=== PATIENT | male | born 1930 | race Caucasian/White ===

== ENCOUNTER 2017-12-07 13:17 | Inpatient (IN) | payer MEDICARE ==
[2017-12-07 13:53] LABS: #Eosinphils 0.1 thou/uL (0.0-0.7); #Lymphocytes 0.8 thou/uL (1.20-3.40); #Monocytes 0.9 thou/uL (0.11-0.59); #Neutrophils 8.2 thou/uL (1.40-6.50); %Basophils 0.2 % (0.0-1.0); %Eosinophils 0.6 % (0.0-10.0); %Lymphocytes 8.1 % (21.0-51.0); %Monocytes 8.7 % (0.0-10.0); %Neutrophils 82.5 % (42.0-75.0); Hemoglobin 14.9 g/dL (14.0-18.0); Mean Corpuscular HGB CONC 33.6 g/dL (32.0-36.0); Mean Corpuscular Hemoglobin 32.4 pg (27.0-31.0); Mean Corpuscular Volume 96.6 fl (80.0-94.0); Mean Platelet Volume 6.5 fL (7.4-10.4); Platelet Count 219 thou/uL (130-400); RBC Distribution Width 11.5 % (11.5-14.5); Red Blood Cell (RBC) Count 4.61 mill/uL (4.70-6.10)
[2017-12-07 14:11] LABS: ALT (SGPT) 13 U/L (8-55); AST (SGOT) 17 U/L (5-34); Albumin 3.9 g/dL (3.4-4.8); Alkaline Phosphatase 80 U/L (40-150); Anion Gap 16 mmol/L (10-20); BUN (Urea Nitrogen) 15 mg/dL (8.4-25.7); Bilirubin, Total 0.8 mg/dL (0.2-1.2); Calc. Creatinine Clearance 0 mL/min (70-130); Calcium 10.1 mg/dL (7.8-10.44); Carbon Dioxide 22 mmol/L (23-31); Chloride 103 mmol/L (98-107); Estimated GFR-MDRD 49; Globulin 3.3 g/dL (2.4-3.5); Glucose 116 mg/dL (83-110); Protein, Total 7.2 g/dL (5.8-8.1); Sodium 137 mmol/L (136-145)
--- NOTE | 2017-12-07 14:12 | RAD ---
RIGHT HIP TWO VIEWS: History: Hip pain after fall. Comparison: 2014 FINDINGS: There is an impacted mid femoral neck fracture with valgus angulation. Severe degenerative change rig ht hip. IMPRESSION: Impacted mid femoral neck fracture with mild valgus angulation. POS: [facility]
--- NOTE | 2017-12-07 14:14 | RAD ---
CHEST ONE VIEW: History: Fall. Comparison: Chest two views, 2013. FINDINGS: Calcified granulomas are similar. There is linear scarring left lung base. No focal airspace consolid ation, pneumothorax or effusion. IMPRESSION: No acute intrathoracic abnormality. POS: [facility]
--- NOTE | 2017-12-07 14:14 | RAD ---
AP PELVIS 1 VIEW: Date: 12/07/17 HISTORY: Fall. Pelvic injury. FINDINGS: Sacral ala and pelvic rings are intact. Left hip prosthesis is visualized. There are degenerative quincy nges of the right hip and lower lumbar spine. Calcifications overlie the arterial structures. No disp laced fractures are visible. IMPRESSION: 1. No acute osseous abnormalities are demonstrated. 2. Osteoarthritis. Left hip prosthesis. 3. Atherosclerosis. POS: [facility]
--- NOTE | 2017-12-07 14:57 | CT ---
CT PELVIS NONCONTRAST: Date: 12/07/17 HISTORY: Fall. Right hip injury. FINDINGS: Oblique fracture through the neck of the right femur is present with minimal impaction and valgus ang ulation. Degenerative changes of the right hip are also present. Left hip prosthesis is visible. Ther e is osteophytosis and partial ankylosis of each sacroiliac joint. IMPRESSION: Right femoral neck fracture. POS: [facility]
[2017-12-07] MEDS ORDERED: Sodium Chloride 0.9% 1,000 ML IV SCH ×2 (16:14→16:32)
[2017-12-07] MEDS ORDERED: Ondansetron HCl/PF 4 MG/2 ML Vial IVP PRN ×2 (16:14→16:32)
[2017-12-07] MEDS ORDERED: Ondansetron ODT 4 MG TAB SL PRN (16:14)
[2017-12-07] MEDS ORDERED: Morphine 4 MG/ML Carpuject SLOW IVP PRN (16:15)
[2017-12-07 16:30] VITALS: BMI 29.9
[2017-12-07] MEDS ORDERED: Acetaminophen 500 MG TAB PO PRN (16:32)
[2017-12-07] MEDS ORDERED: Dextrose 50% Abboject 50 ML SYRINGE SLOW IVP PRN (16:32)
[2017-12-07] MEDS ORDERED: hydrALAZINE 20 MG/ML VIAL SLOW IVP PRN (16:32)
[2017-12-07] MEDS ORDERED: Ondansetron ODT 4 MG TAB PO PRN (16:32)
[2017-12-07] MEDS ORDERED: Dextrose 5% in Water 1,000 ML IV PRN (16:32)
[2017-12-07] MEDS ORDERED: Morphine 4 MG/ML Carpuject IVP PRN (16:32)
[2017-12-07] MEDS ORDERED: Morphine 2 MG/ML SYRINGE SLOW IVP PRN (16:55)
--- NOTE | 2017-12-07 19:25 | HP ---
DATE OF SERVICE: 12/07/2017 ATTENDING PHYSICIAN: Dr. Edison Kate. CONSULTING PHYSICIAN: Dr. Levon Velasco. CHIEF COMPLAINT: Evaluation for fall on the right hip. HISTORY OF PRESENT ILLNESS: The patient is an 87-year-old male who slipped and fell on a patch of ice while walking in his driveway the morning of 12/06/2017. He reports falling on his right hip. He denies hitting his head, loss of consciousness or injury to any other body part. He denies a history of falls. He denies dizziness or lightheadedness. He does report prior episodes of numbness and tingling in his extremities, but believes this was a reaction to a medicine he took and says this has resolved. He reports taking two tablets of an unknown pain reliever last night, which he says he got from an old prescription for back pain. He was able to sleep comfortably in his recliner last night, but was unable to bear weight when he awoke this morning. Currently reports his pain is 0/10, but says it is worse as much as 5/10 with movement. REVIEW OF SYSTEMS: Ten point review of systems is negative except as mentioned in the HPI. PAST MEDICAL HISTORY: The patient reports a history of BPH as well as numerous musculoskeletal problems as mentioned in the surgical history. PAST SURGICAL HISTORY: The patient reports a history of right shoulder replacement surgery, left hip replacement surgery, back surgery, inguinal hernia repair surgery, as well as surgery for BPH. SOCIAL HISTORY: The patient reports drinking about 1 beer every 3 months. The patient denies drug use. The patient denies smoking. The patient does report a remote history of chewing tobacco. 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 CURRENT MEDICATIONS: The patient takes 81 mg aspirin p.o. daily. The patient also takes B12 supplements. The patient takes PreserVision AREDS 2 vitamins for his eyes. PHYSICAL EXAMINATION: VITAL SIGNS: BP 151/86, pulse 79, respirations 22 and nonlabored, temperature 99.8, O2 sat 93% on room air. GENERAL: Elderly male lying comfortably in bed, alert and conversational with staff. HEAD: Atraumatic, normocephalic. EYES: Extraocular movements intact. Pupils equal, round, and reactive to light and accommodation. ENT: External ear exam unremarkable. No blood or exudate in the external canals. Hearing grossly impaired bilaterally. NECK: Normal. RESPIRATORY: Lungs clear to auscultation bilaterally. CARDIOVASCULAR: Regular rate and rhythm. Normal S1 and S2. ABDOMEN: Soft, nontender, nondistended. Bowel sounds normal. No organomegaly. MUSCULOSKELETAL: Moves hands and feet easily. Communication Manager strength 5/5. Great toe strength 5/5. Pedal pulses 2+ bilaterally. Difficulty with active range of motion in right leg. Area around right hip and greater trochanter free of ecchymosis and not tender to palpation. SKIN: Warm and dry with normal color. NEUROLOGIC: Alert and oriented x4. Cranial nerves II-XII intact. No focal neurologic deficits. RADIOLOGIC FINDINGS: The pelvis CT as well as plain films of the hip and pelvis show right femoral neck fracture. Chest x-ray shows no acute intrathoracic abnormality. ASSESSMENT AND PLAN: 1. Status post fall. 2. Right femoral neck fracture. PLAN: He will be admitted to the surgical floor. Because his last meal was this morning, the plan will be for surgical fixation of his right hip tomorrow sometime. In the meantime, we will make him n.p.o. after midnight and optimize his pain control. The patient was seen and discussed with Dr. Kate, who agrees with this assessment and plan. [facility]
[2017-12-07] MEDS: Famotidine 20 MG TAB PO SCH (20:41)
--- NOTE | 2017-12-07 21:36 | CON ---
DATE OF CONSULTATION: 12/07/2017 CHIEF COMPLAINT: Right hip pain. HISTORY OF PRESENT ILLNESS: Mr. Acuña is an 87-year-old male who slipped on ice today. He fell matt d on his right hip. The patient was able to ambulate initially; however, he had progressive worsenin g hip pain. Today, he was unable to arise out of a chair. He finally called EMS and was taken to [facility] emergency department. X-rays were obtained, which demonstrated a femoral neck fracture. The patie nt is currently resting comfortably. He has been admitted to the hospital by the Trauma Service. He denies other injuries. He denies other fractures. He has had a left total hip arthroplasty in the past for arthritis. He had no hip pain prior to his injury and no significant arthritis type pain re cently. PAST MEDICAL HISTORY: Benign prostatic hypertrophy. PAST SURGICAL HISTORY: Left total hip arthroplasty, previous right shoulder arthroplasty, previous b ilateral hernia repair, and lumbar surgery. PSYCHIATRIC HISTORY: Negative. SOCIAL HISTORY: The patient occasionally drinks alcohol. Denies tobacco or drug use. ALLERGIES: No known drug allergies. IMAGES: X-rays and CT scan of the right hip are reviewed. These demonstrate a nondisplaced right fr acture of the femoral neck. There is no significant loss of alignment or impaction. PHYSICAL EXAMINATION: VITAL SIGNS: Temperature is 99.5, pulse is 93, respiratory rate 18, oxygen saturation 93%, blood pre ssure 136/90. GENERAL: The patient is alert, sitting with head of bed elevated, in no apparent distress. HEENT: Normocephalic, atraumatic. RESPIRATORY: Breathing comfortably. ABDOMEN: Soft, nontender, nondistended. MUSCULOSKELETAL: The patient's right hip has pain with logrolling. He cannot actively elevate the l eg. He does have an intact neurovascular status distally with a palpable pulse. He is able flex and extend the foot and ankle. No significant ecchymosis, no laceration. IMPRESSION: Elderly male with a nondisplaced femoral neck fracture of the right hip. PLAN: At this point, I think the patient would benefit from percutaneous screw fixation to stabilize this fracture and allow healing. The goal of surgery is to prevent displacement. He wants to proce ed with this. We discussed alternatives, which would include arthroplasty of the hip; however, he di d not have any preinjury, hip pain, despite having arthritic hip. We will try screw fixation. He is aware of risk of avascular necrosis, hardware failure, nonunion, and others. He should be n.p.o. at midnight. He will have adequate pain control and preoperative medical optimization. He will have p reoperative antibiotics.
[2017-12-07] MEDS ORDERED: Melatonin 3 MG TAB PO PRN (23:31)
[2017-12-08] MEDS ORDERED: CEFAZOLIN/Water 2 GM/20 ML SYRINGE SLOW IVP SCH (00:01)
--- NOTE | 2017-12-08 00:35 | PRG ---
DATE OF SERVICE: 12/07/2017 SUBJECTIVE: This is an 87-year-old male admitted earlier today status post mechanical fall with hip fracture. The patient's pain is well controlled. He localizes no complaint. He did, however, ask f or something to help him sleep. OBJECTIVE: VITAL SIGNS: Reviewed and are stable. The patient does appear to have a low-grade temperature. GENERAL: The patient is resting in bed, in no acute distress. Breathing is nonlabored. ASSESSMENT: As documented in history and physical earlier today. Continue care as ordered. Given t he patient's age and time in the evening, he may have 3 mg of melatonin at bedtime p.r.n. for insomni a. He will need aggressive postop incentive spirometry and pulmonary toileting. Continue to monitor .
[2017-12-08] MEDS: Sodium Chloride 0.9% 1,000 ML IV SCH ×2 (01:34→13:49)
[2017-12-08 05:30] LABS: #Eosinphils 0.2 thou/uL (0.0-0.7); #Lymphocytes 1.2 thou/uL (1.20-3.40); #Neutrophils 6.2 thou/uL (1.40-6.50); %Basophils 0.3 % (0.0-1.0); %Lymphocytes 14.3 % (21.0-51.0); %Monocytes 11.3 % (0.0-10.0); %Neutrophils 72.2 % (42.0-75.0); Hemoglobin 13.4 g/dL (14.0-18.0); Mean Corpuscular HGB CONC 32.6 g/dL (32.0-36.0); Mean Corpuscular Hemoglobin 31.5 pg (27.0-31.0); Mean Corpuscular Volume 96.7 fl (80.0-94.0); Mean Platelet Volume 6.6 fL (7.4-10.4); Platelet Count 186 thou/uL (130-400); RBC Distribution Width 11.4 % (11.5-14.5); Red Blood Cell (RBC) Count 4.26 mill/uL (4.70-6.10); White Blood Cell (WBC) Count 8.5 thou/uL (4.8-10.8)
[2017-12-08 05:32] LABS: INR-International Normal Ratio 1.2; PTT 37.7 SEC (22.9-36.1); Prothrombin Time 15.4 SEC (12.0-14.7)
[2017-12-08 05:49] LABS: Anion Gap 11 mmol/L (10-20); BUN (Urea Nitrogen) 13 mg/dL (8.4-25.7); Calc. Creatinine Clearance 58 mL/min (70-130); Calcium 8.7 mg/dL (7.8-10.44); Carbon Dioxide 24 mmol/L (23-31); Chloride 104 mmol/L (98-107); Estimated GFR-MDRD 55; Glucose 101 mg/dL (83-110); Magnesium 2.1 mg/dL (1.6-2.6); Phosphorus 2.7 mg/dL (2.3-4.7); Potassium 3.9 mmol/L (3.5-5.1); Sodium 135 mmol/L (136-145)
[2017-12-08] MEDS: Famotidine 20 MG TAB PO SCH ×2 (07:21→20:51)
[2017-12-08] MEDS ORDERED: Ondansetron HCl/PF 4 MG/2 ML Vial ONE (10:42)
[2017-12-08] MEDS ORDERED: Propofol 200 MG/20 ML VIAL ONE (10:42)
[2017-12-08] MEDS ORDERED: Lidocaine 1% PF 5 ML VIAL ONE (10:42)
[2017-12-08] MEDS ORDERED: Fentanyl 100 MCG/2 ML VIAL ONE ×2 (13:49→15:57)
[2017-12-08] MEDS ORDERED: CEFAZOLIN/Water 2 GM/20 ML SYRINGE ONE (14:21)
[2017-12-08] MEDS ORDERED: Morphine Sulfate 2 MG/ML SYRINGE SLOW IVP PRN (15:23)
[2017-12-08] MEDS ORDERED: Promethazine HCl 25 MG/ML VIAL SLOW IVP PRN (15:23)
[2017-12-08] MEDS ORDERED: traMADol HCl 50 MG TAB PO PRN ×2 (15:30)
[2017-12-08] MEDS ORDERED: Ondansetron HCl/PF 4 MG/2 ML Vial IVP PRN (15:30)
[2017-12-08] MEDS ORDERED: Fentanyl 100 MCG/2 ML VIAL SLOW IVP PRN (15:30)
[2017-12-08] MEDS ORDERED: Bisacodyl 10 MG SUPP PR PRN (15:30)
[2017-12-08] MEDS ORDERED: Ondansetron ODT 4 MG TAB PO PRN (15:30)
[2017-12-08] MEDS ORDERED: Acetaminophen 325 MG TAB PO PRN (15:30)
[2017-12-08] MEDS ORDERED: Cepastat Lozenges 1 LOZ PO PRN (15:30)
[2017-12-08] MEDS ORDERED: Fleet Enema 133 ML BOT PR PRN (15:30)
--- NOTE | 2017-12-08 17:59 | PRG ---
DATE OF SERVICE: 12/08/2017 SUBJECTIVE: The patient is hospital day #2 status post ground level fall which he sustained a right hip fracture. The patient has been n.p.o. overnight and is currently awaiting surgical intervention by Orthopedics. The patient has no complaints, states that his pain is controlled. OBJECTIVE: VITAL SIGNS: Temperature is 97.9, heart rate 60, blood pressure 147/78, respirations 18, oxygen satu ration is 93% on room air. GENERAL: The patient is resting comfortably in bed. He is alert and oriented x3. Hortencia coma scal e is 15. HEENT: Unremarkable. LUNGS: Chest clear to auscultation with good inspiratory and expiratory effort. HEART: Regular rate and rhythm. ABDOMEN: Soft, flat, nontender with active bowel sounds. EXTREMITIES: Neurovascularly intact x4. LABORATORY DATA: White blood cell count 8.5, hemoglobin 13.4, hematocrit 41.2, platelets 186. Sodiu m 135, potassium 3.9, chloride 104, CO2 24, BUN 13, creatinine 1.24, glucose 101. Magnesium 2.1, jermain sphorus 2.7. There are no radiographs to review this morning. ASSESSMENT AND PLAN: 1. Status post ground level fall. 2. Right femoral neck fracture. PLAN: Will be to continue supportive care. Await surgical intervention by Orthopedics. Postoperati vely, we will advance his diet and begin physical and occupational therapy and discussed placement at that time. The evaluation examination was done this morning with Dr. Kate during rounds.
--- NOTE | 2017-12-08 18:19 | OP ---
DATE OF PROCEDURE: 12/08/2017. OPERATION: Right femoral neck fracture, percutaneous screw fixation. PREOPERATIVE DIAGNOSIS: Nondisplaced right femoral neck fracture. POSTOPERATIVE DIAGNOSIS: Nondisplaced right femoral neck fracture. COMPLICATIONS: None. ESTIMATED BLOOD LOSS: Minimal. SURGEON: Rusty Velasco M.D. ANESTHESIA: General. IMPLANTS: Synthes 7.3 mm screws x3. INDICATIONS: Mr. Acuña is an 87-year-old male who fell on ice. He sustained a fracture of a right femoral neck. He was indicated for percutaneous screw fixation to restore stability and promote heal ing. Goal of surgery is early mobilization. DESCRIPTION OF PROCEDURE: Mr. Acuña was identified in the preoperative holding area. His correct e xtremity was marked. He was carried to the operating room. He was positioned supine. General anest hesia was induced. A multidisciplinary timeout was performed. The right lower extremity was prepped and draped in sterile fashion. We began the procedure with a small incision laterally. We then inserted three guidewires for cannul ated screws in an inverted triangle position. These were placed carefully with x-ray. At this point , we went ahead and overdrilled these screws. We measured our appropriate length. We then placed 3 cannulated 7.3 mm screws in an inverted triangle pattern. Again, x-rays were taken, confirming hardw are placement and position. There were no complications. At this point, the patient's wound was irr igated and closed with 2-0 Vicryl suture followed by last. A sterile dressing was applied. He wa s taken to the recovery room in good condition without complication.
--- NOTE | 2017-12-08 18:47 | RAD ---
TWO INTRAOPERATIVE FLUOROSCOPIC IMAGES OF THE RIGHT HIP 12/08/17 HISTORY: Trochanteric nail. COMPARISON: 12/07/17. FINDINGS: Three long screws now transfix the previously noted right femoral neck fracture. No hardware complica tion is seen. IMPRESSION: Internal fixation of right femoral neck fracture. POS: [facility]
[2017-12-08] MEDS: Aspirin 325 MG TAB PO SCH (20:50)
[2017-12-08] MEDS: Senokot S 8.6-50 MG TAB PO SCH (20:55)
[2017-12-08] MEDS: Ferrous Gluconate 324 MG TAB PO SCH (20:55)
[2017-12-08] MEDS: CEFAZOLIN/Water 2 GM/20 ML SYRINGE SLOW IVP SCH (20:59)
--- NOTE | 2017-12-08 21:01 | PRG ---
DATE OF SERVICE: 12/08/2017. SUBJECTIVE: This is an 87-year-old male status post ground-level fall and right hip fracture repair. Postop day 0. Patient is returned from the PACU recently. He is hemodynamically stable. He vocal ized no complaints this evening. OBJECTIVE: VITAL SIGNS: Reviewed and stable. GENERAL: The patient is a fever. Resting in bed is in no acute distress. Breathing is nonlabored. ASSESSMENT AND PLAN: As documented in the daily progress note. Continue care as ordered. Continue to monitor.
[2017-12-09] MEDS: Acetaminophen 500 MG TAB PO SCH ×4 (00:22→17:34)
[2017-12-09 05:30] LABS: Hemoglobin 13.3 g/dL (14.0-18.0); Mean Corpuscular HGB CONC 35.3 g/dL (32.0-36.0); Mean Corpuscular Hemoglobin 34.3 pg (27.0-31.0); Mean Corpuscular Volume 97.2 fl (80.0-94.0); Mean Platelet Volume 6.5 fL (7.4-10.4); Platelet Count 163 thou/uL (130-400); RBC Distribution Width 11.2 % (11.5-14.5); Red Blood Cell (RBC) Count 3.87 mill/uL (4.70-6.10)
[2017-12-09] MEDS: CEFAZOLIN/Water 2 GM/20 ML SYRINGE SLOW IVP SCH (06:39)
[2017-12-09] MEDS: Sodium Chloride 0.9% 1,000 ML IV SCH (06:41)
[2017-12-09] MEDS: Ferrous Gluconate 324 MG TAB PO SCH ×2 (09:28→20:39)
[2017-12-09] MEDS: Famotidine 20 MG TAB PO SCH ×2 (09:28→20:39)
[2017-12-09] MEDS: Aspirin 325 MG TAB PO SCH ×2 (09:28→20:39)
[2017-12-09] MEDS: Senokot S 8.6-50 MG TAB PO SCH ×2 (09:29→20:39)
[2017-12-09] MEDS: Multivitamin W/ Minerals 1 TAB PO SCH (09:29)
[2017-12-09] MEDS: Milk Of Magnesia 30 ML UDCUP PO PRN ×2 (11:55→17:34)
--- NOTE | 2017-12-09 16:14 | PRG ---
DATE OF SERVICE: 12/09/2017 SUBJECTIVE: The patient is hospital day #3, postop day #1 status post ground level fall, which he olivares stained a right femoral neck fracture. Yesterday, the patient underwent percutaneous screw fixation of his right femoral neck fracture. The patient tolerated this procedure well. This morning, he sta nilda that his pain is controlled. He does feel hungry. He has not worked with physical and occupatio nal therapy yet. Otherwise, he has no complaints. PHYSICAL EXAMINATION: VITAL SIGNS: Temperature is 98.0, heart rate 55, blood pressure 112/60, respirations 16, oxygen satu ration 96% on room air. HEENT: Unremarkable. LUNGS: Clear to auscultation with good inspiratory and expiratory effort. In fact, the patient was able to get to nearly 3000 on his incentive spirometry. HEART: Regular rate and rhythm. ABDOMEN: Soft, flat, nontender with active bowel sounds. EXTREMITIES: Neurovascularly intact. Postop dressings are clean, dry, and intact. LABORATORY DATA AND IMAGING: White blood cell count 8.0, hemoglobin 13.3, hematocrit 37.6, platelets 163. Sodium 135, potassium 3.9, chloride 104, CO2 24, BUN 13, creatinine 1.24, glucose 101. Magnes ium 2.1, phosphorus 2.7. There are no radiographs reviewed this morning. ASSESSMENT AND PLAN: 1. Status post ground level fall. 2. Status post percutaneous screw fixation of right hip fracture. Plan will be to continue pain control, physical and occupational therapy and await placement decision . gas manager will discuss this with the family today. This evaluation examination was done with Valerie Kate during rounds this morning.
--- NOTE | 2017-12-09 20:38 | PRG ---
DATE OF SERVICE: 12/09/2017 SUBJECTIVE: This is an 87-year-old gentleman postop day #1 status post hip fracture repair. The pat ient is working with physical therapy today. He states his pain is controlled. On Pulmonary evaluat ion, the patient vocalized no complaint. OBJECTIVE: VITAL SIGNS: Reviewed and stable. The patient is afebrile. GENERAL: Resting in bed, in no acute distress. PULMONARY: Breathing is nonlabored. ASSESSMENT AND PLAN: As documented in daily progress note. Continue care as ordered. Continue to m onitor. Await placement.
[2017-12-10] MEDS: Acetaminophen 500 MG TAB PO SCH ×4 (00:49→17:54)
[2017-12-10 05:14] LABS: Hemoglobin 13.1 g/dL (14.0-18.0); Mean Corpuscular HGB CONC 32.8 g/dL (32.0-36.0); Mean Corpuscular Hemoglobin 31.8 pg (27.0-31.0); Mean Corpuscular Volume 96.8 fl (80.0-94.0); Mean Platelet Volume 6.7 fL (7.4-10.4); Platelet Count 183 thou/uL (130-400); RBC Distribution Width 11.4 % (11.5-14.5); Red Blood Cell (RBC) Count 4.12 mill/uL (4.70-6.10); White Blood Cell (WBC) Count 6.5 thou/uL (4.8-10.8)
[2017-12-10 05:37] LABS: Anion Gap 13 mmol/L (10-20); BUN (Urea Nitrogen) 15 mg/dL (8.4-25.7); Calc. Creatinine Clearance 60 mL/min (70-130); Calcium 8.8 mg/dL (7.8-10.44); Carbon Dioxide 25 mmol/L (23-31); Chloride 103 mmol/L (98-107); Estimated GFR-MDRD 57; Glucose 95 mg/dL (83-110); Magnesium 2.3 mg/dL (1.6-2.6); Phosphorus 2.7 mg/dL (2.3-4.7); Potassium 3.6 mmol/L (3.5-5.1); Sodium 137 mmol/L (136-145)
[2017-12-10] MEDS ORDERED: Potassium Chloride 40 MEQ in Sodium Chloride 0.9% 500 ML IVPB SCH (07:30)
[2017-12-10] MEDS: Aspirin 325 MG TAB PO SCH ×2 (09:28→20:30)
[2017-12-10] MEDS: Ferrous Gluconate 324 MG TAB PO SCH ×2 (09:29→20:30)
[2017-12-10] MEDS: Senokot S 8.6-50 MG TAB PO SCH ×2 (09:29→20:30)
[2017-12-10] MEDS: Famotidine 20 MG TAB PO SCH ×2 (09:29→20:30)
[2017-12-10] MEDS: Multivitamin W/ Minerals 1 TAB PO SCH (09:29)
--- NOTE | 2017-12-10 12:40 | PRG ---
DATE OF SERVICE: 12/10/2017 SUBJECTIVE: The patient is hospital day #4. Postop day #2 status post ground level fall which he olivares stained a right femoral neck fracture. The patient has undergone percutaneous screw fixation of this fracture. He tolerated this well, has been working with physical and occupational therapy and has a ctually been doing exceedingly well with physical therapy as far as ambulation and transfers. The katherine malik's pain is controlled, he is tolerating a diet and his bowel function has returned. PHYSICAL EXAMINATION: VITAL SIGNS: Temperature is 98.6, heart rate 63, blood pressure 147/69, respirations 19, oxygen satu ration 95% on room air. GENERAL: The patient is resting comfortably in a chair by his bed. He is alert and oriented x3. Gl asgow coma scale is 15. HEENT: Unremarkable. LUNGS: Clear to auscultation bilaterally with good inspiratory and expiratory effort. HEART: Regular rate and rhythm. ABDOMEN: Soft, flat, nontender with active bowel sounds. EXTREMITIES: Neurovascularly intact x4. Postop dressing is clean, dry, and intact. LABORATORY DATA: White blood cell count 6.5, hemoglobin 13.1, hematocrit 39.9, platelets 183. Sodiu m 137, potassium 3.6, chloride 103, CO2 25, BUN 15, creatinine 1.20, glucose 95. Magnesium 2.3, phos phorus 2.7. There are no radiographs to review this morning. ASSESSMENT AND PLAN: 1. Status post ground level fall. 2. Status post percutaneous screw fixation of right hip fracture. PLAN: The plan will be to continue physical and occupational therapy. The patient is okay to transf er to a swing bed facility or with the amount of progress he has made, home with home health and home PT. This is definitely a consideration, I will discuss this with the behavioral health case manager and the patient and make decisions, but the patient is okay for discharge from our facility. This case was discussed with Dr. Kate this morning.
--- NOTE | 2017-12-10 20:29 | PRG ---
DATE OF SERVICE: 12/10/2017 SUBJECTIVE: This is an 87-year-old male, hospital day #4, postoperative day #2, status post ground l evel fall and hip fracture repair. The patient has done well with physical therapy. His pain is con trolled via p.o. analgesics. Upon my evaluation, the patient vocalized no complaint. OBJECTIVE: VITAL SIGNS: Reviewed and stable. GENERAL: The patient is resting in bed, in no acute distress. RESPIRATORY: Breathing is nonlabored. ASSESSMENT AND PLAN: As documented in daily progress note. Continue care as ordered. Continue to m onitor.
[2017-12-11] MEDS: Acetaminophen 500 MG TAB PO SCH ×2 (01:11→06:38)
[2017-12-11 04:45] LABS: Hemoglobin 12.7 g/dL (14.0-18.0); Mean Corpuscular HGB CONC 33.2 g/dL (32.0-36.0); Mean Corpuscular Hemoglobin 32.2 pg (27.0-31.0); Mean Corpuscular Volume 97.1 fl (80.0-94.0); Mean Platelet Volume 6.4 fL (7.4-10.4); Platelet Count 188 thou/uL (130-400); RBC Distribution Width 11.4 % (11.5-14.5); Red Blood Cell (RBC) Count 3.93 mill/uL (4.70-6.10); White Blood Cell (WBC) Count 5.3 thou/uL (4.8-10.8)
[2017-12-11 04:58] LABS: Anion Gap 13 mmol/L (10-20); BUN (Urea Nitrogen) 13 mg/dL (8.4-25.7); Calc. Creatinine Clearance 60 mL/min (70-130); Calcium 8.8 mg/dL (7.8-10.44); Carbon Dioxide 25 mmol/L (23-31); Chloride 106 mmol/L (98-107); Estimated GFR-MDRD 58; Glucose 101 mg/dL (83-110); Magnesium 2.4 mg/dL (1.6-2.6); Phosphorus 3.1 mg/dL (2.3-4.7); Sodium 140 mmol/L (136-145)
[2017-12-11 08:05] VITALS: BP 163/63; TEMP 97.7
[2017-12-11] MEDS: Aspirin 325 MG TAB PO SCH (08:29)
[2017-12-11] MEDS: Senokot S 8.6-50 MG TAB PO SCH (08:30)
[2017-12-11] MEDS: Multivitamin W/ Minerals 1 TAB PO SCH (08:30)
[2017-12-11] MEDS: Famotidine 20 MG TAB PO SCH (08:31)
[2017-12-11] MEDS: Ferrous Gluconate 324 MG TAB PO SCH (08:31)
[2017-12-11] MEDS ORDERED: Polyethylene Glycol 3350 17 GM Packet PO SCH (09:00)
--- NOTE | 2017-12-11 22:14 | DIS ---
DATE OF ADMISSION: 12/07/2017 DATE OF DISCHARGE: 12/11/2017 ADMISSION DIAGNOSES: 1. Status post ground level fall. 2. Right femoral neck fracture. CONSULTATIONS: Orthopedics, Dr. Velasco. PROCEDURES: Percutaneous screw fixation of right femoral neck fracture. SUMMARY: The patient is an 87-year-old man who reportedly fell on the ice the day prior to coming to the emergency department. The patient was evaluated, examined and noted to have the above injuries. The following day, the patient will undergo his surgical procedure which he tolerated well. The pa tient would work with physical and occupational therapy and would actually exceed our expectations an d would be able to be discharged home with home PT. The patient would not require inpatient rehabili tation. He had progressed so rapidly. The patient will follow up with Dr. Velasco in 2-3 weeks or sooner as needed. The patient may followup with the Trauma Clinic as needed. At the time of discha rge, the patient was tolerating a diet. His pain was well controlled and his bowel function had retu rned. The patient was ambulating with a walker without assistance.
== END 2017-12-11 11:38 | disposition home or self-care (01) | DRG 482 ==
LOC: ERS 13:17 → SURG A 14:55
PROVIDERS: ADMIT Surgery; ATTEND Surgery
PROC: 0QH634Z Insertion of Internal Fixation Device into Right Upper Femur, Percutaneous Approach (ICD-10-PCS; principal; 2017-12-08)
DX: S72.001A Fracture of unspecified part of neck of right femur, initial encounter for closed fracture (principal); G47.00 Insomnia, unspecified; W00.0XXA Fall on same level due to ice and snow, initial encounter
CPT/HCPCS: 36415; 71045; 72170; 72192; 76000; 80048; 80053; 83735; 84100; 85025; 85027; 85610; 85730; C1713; C1769; G8978-GP-CK; G8979-GP-CJ; G8987-GO-CK; G8988-GO-CI; J2001; J2405; J2704; J3010; J3480; J7050

== ENCOUNTER 2019-01-02 01:04 | Outpatient (CLI) | payer MEDICARE ==
[2019-01-02 12:52] LABS: Hemoglobin 15.9 g/dL (14.0-18.0); Mean Corpuscular HGB CONC 32.7 g/dL (32.0-36.0); Mean Corpuscular Hemoglobin 31.4 pg (27.0-31.0); Mean Platelet Volume 6.7 fL (7.4-10.4); Platelet Count 227 thou/uL (130-400); RBC Distribution Width 11.6 % (11.5-14.5); Red Blood Cell (RBC) Count 5.07 mill/uL (4.70-6.10); White Blood Cell (WBC) Count 6.9 thou/uL (4.8-10.8)
[2019-01-02 13:07] LABS: PTT 30.8 SEC (22.9-36.1); Prothrombin Time 13.6 SEC (12.0-14.7)
[2019-01-02 13:17] LABS: Anion Gap 13 mmol/L (10-20); BUN (Urea Nitrogen) 10 mg/dL (8.4-25.7); Calc. Creatinine Clearance 0 mL/min (70-130); Calcium 9.8 mg/dL (7.8-10.44); Carbon Dioxide 24 mmol/L (23-31); Chloride 105 mmol/L (98-107); Estimated GFR-MDRD 53; Glucose 96 mg/dL (83-110); Potassium 4.2 mmol/L (3.5-5.1); Sodium 138 mmol/L (136-145)
--- NOTE | 2019-01-02 13:39 | RAD ---
PA AND LATERAL CHEST X-RAY: 01/02/2019 HISTORY: Preoperative evaluation. COMPARISON: 09/18/2014 FINDINGS: Linear densities are again seen at the left lung base, likely related to scarring. The lungs are oth erwise clear. The cardiac silhouette and pulmonary vasculature are within normal limits. Calcified mediastinal and left hilar lymph nodes are again present. Degenerative changes are again present in the spine. There is partial visualization of a right glenohumeral prosthesis. There is mild left gl enohumeral osteoarthropathy. IMPRESSION: 1. No acute cardiopulmonary process. 2. Scarring in the left lung base. POS: [facility]
== END 2019-01-02 01:05 | disposition home or self-care (01) ==
LOC: LABBT 01:04
PROVIDERS: ATTEND Urology
DX: Z01.818 Encounter for other preprocedural examination (principal); N28.9 Disorder of kidney and ureter, unspecified; J98.4 Other disorders of lung
CPT/HCPCS: 71046; 80048; 85027; 85610; 85730; 93005; 93010

== ENCOUNTER 2019-01-05 05:40 | Day surgery (SDC) | payer MEDICARE ==
[2019-01-02 11:35] VITALS: BMI 30.2
[2019-01-05] MEDS ORDERED: Sodium Chloride 0.9% 0 ML ONE (06:13)
[2019-01-05] MEDS ORDERED: cefTRIAXone\\ROCEPHIN 2 GM VIAL ONE (06:13)
[2019-01-05] MEDS ORDERED: Sodium Chloride 0.9% 100 ML ONE (06:14)
[2019-01-05] MEDS ORDERED: Iothalamate Meglumine 60% 50 ML VIAL FS ONE (06:33)
[2019-01-05] MEDS ORDERED: Fentanyl 100 MCG/2 ML VIAL ONE (07:11)
--- NOTE | 2019-01-05 09:32 | RAD ---
IVP: HISTORY: Left-sided hydronephrosis. COMPARISON: CT abdomen and pelvis from 12/26/2018. FINDINGS: Multiple images from a retrograde IVP were submitted for interpretation. There are areas of narrowin g of the ureter, as well as areas of dilatation of the left ureter. Eventually, a wire and stent wer e placed in the left renal collecting system. There was severe left-sided hydronephrosis. The doubl e-J stent, on the last image, appeared in good position. POS: [facility]
--- NOTE | 2019-01-05 10:33 | OP ---
DATE OF PROCEDURE: 01/05/2019 PREOPERATIVE DIAGNOSES: Left hydronephrosis, left periurethral/pelvic mass. POSTOPERATIVE DIAGNOSES: Left hydronephrosis, left periurethral/pelvic mass. PROCEDURES PERFORMED: Cystoscopy with retrograde left ureteral cytology, left stent placement, transurethral resection of the left ureteral orifice in distal or in the intramural ureter. FINDINGS: He had left hydro. He had few centimeter long segment of very narrow left ureter, had slightly more normal-appearing ureter distal to that on retrograde study. 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 DRAINS PLACED: A 6 x 24 left double-J stent without a string and a 20-Singaporean Trujillo catheter, passing his urine cytology from the hydronephrosis above the mass and also left ureteral orifice and some of the intramural ureter. OPERATIVE TECHNIQUE: Obtained written verbal consent from the patient after receiving Rocephin IV, he was taken to the operating suite. He was placed in a supine position on the treatment table. PlexiPulse was placed in the lower extremities and turned on. He was given a general anesthetic and oral obturator intubation. He was placed in the dorsal lithotomy position. He was sterilely prepped and draped for cystoscopy. Cystoscopy was initially performed with a 22-Singaporean sheath. This was well lubricated, passed under direct vision through the male urethra into the urinary bladder with a 30-degree lens and video camera and monitor. The bladder was filled and emptied number of times, examined with both the 30 and 70 degree lens with the findings above. At this point, we had attempted retrograde study that mentioned left ureteral orifice was swollen, edematous, friable, lot of neovascularity, very suspicious for high-grade cancer. We would intubated and shoot a little contrast that showed the long segment of narrowing and dilated ureter above it. We were able to gently fed a Glidewire up across this and up into the dilated renal pelvis. We had only placed a small amount of contrast, so we were able to place the open-ended catheter over this Glidewire and then drained out about 30 to 40 mL of urine from both this point, sent that for cytology. We then went ahead and passed the open-ended catheter all the way up into the renal pelvis, injected about 15 mL of contrast to fill out this dilated collecting system, replaced the guidewire and then removed the instruments and replaced it with a 24-Singaporean resectoscope sheath. This was passed with the visual obturator into the bladder. We then brought in the gyrus generator with a bladder loop and used Infoflow resectoscope, 30-degree lens, video camera, and monitor to resect the intramural ureter around the guidewire. Once this was completed, we obtained hemostasis with coagulating current. We got out the chips by removing them with a loop and then removed these instruments, back loaded the guidewire through the cystoscope, and passed a 6 x 24 polaris double-J stent over the guidewire, pushing in place with the aid of pusher, so its proximal end coiled in the renal pelvis and its distal end coiled in the bladder when the wire was removed. We did fill out the proximal collecting system with contrast just prior to doing this. At this point, the bladder was drained. The instruments were removed. Trujillo catheter was placed. We also did a bimanual exam that revealed a three-dimensional pelvic mass on the left side of the pelvis. He was then awakened and extubated, taken by macrina to recovery room. Job ID: [id number]
[2019-01-05] MEDS ORDERED: Lidocaine 1% PF 5 ML VIAL ONE (16:06)
[2019-01-05] MEDS ORDERED: Ondansetron PF 4 MG/2 ML Vial ONE (16:06)
[2019-01-05] MEDS ORDERED: Dexamethasone 20 MG/5 ML VIAL ONE (16:06)
[2019-01-05] MEDS ORDERED: ePHEDrine 50 MG/ML VIAL ONE (16:06)
[2019-01-05] MEDS ORDERED: PROPOFOL 200 MG/20 ML VIAL ONE (16:06)
== END 2019-01-05 10:59 | disposition home or self-care (01) ==
LOC: SDC 05:40
PROVIDERS: ATTEND Urology
PROC: 0TB78ZX Excision of Left Ureter, Via Natural or Artificial Opening Endoscopic, Diagnostic (ICD-10-PCS; principal; 2019-01-05)
PROC: 0T778DZ Dilation of Left Ureter with Intraluminal Device, Via Natural or Artificial Opening Endoscopic (ICD-10-PCS; 2019-01-05)
DX: C66.2 Malignant neoplasm of left ureter (principal); N13.30 Unspecified hydronephrosis; G11.9 Hereditary ataxia, unspecified; M19.90 Unspecified osteoarthritis, unspecified site; Z87.891 Personal history of nicotine dependence; Z79.82 Long term (current) use of aspirin; Z79.899 Other long term (current) drug therapy; Z88.1 Allergy status to other antibiotic agents
CPT/HCPCS: 52332; 52355; 74420; 88112; 88305; C1758; C1769; J0131; J0696; J1100; J2001; J2405; J2704; J3010; J3490; J7050; Q9961

== ENCOUNTER 2019-01-30 12:12 | Day surgery (SDC) | payer MEDICARE ==
[2019-01-29 13:09] VITALS: BMI 31.0
[2019-01-30] MEDS ORDERED: ceFAZolin Sodium 2 GM/100 ML BAG ONE (12:41)
[2019-01-30] MEDS ORDERED: Ketorolac Tromethamine 30 MG/ML VIAL ONE (12:41)
[2019-01-30] MEDS ORDERED: Fentanyl 100 MCG/2 ML VIAL ONE (13:15)
[2019-01-30] MEDS ORDERED: Sodium Chloride 0.9% 0 ML ONE (13:23)
[2019-01-30] MEDS ORDERED: Lidocaine 1% (PF) 30 ML VIAL ONE (13:23)
[2019-01-30] MEDS ORDERED: Bupivacaine/Epinephrine 0.25% 30 ML VIAL ONE (13:23)
[2019-01-30] MEDS ORDERED: Glycopyrrolate 0.2 MG/ML 5 ML SYRINGE ONE (13:52)
[2019-01-30] MEDS ORDERED: PROPOFOL 200 MG/20 ML VIAL ONE (13:52)
[2019-01-30] MEDS ORDERED: Ondansetron PF 4 MG/2 ML Vial ONE (13:52)
[2019-01-30] MEDS ORDERED: Lidocaine 1% PF 5 ML VIAL ONE (13:52)
--- NOTE | 2019-01-30 16:48 | RAD ---
PORTABLE CHEST ONE VIEW: 01/30/2019 3:04 p.m. HISTORY: Mediport placement. COMPARISON: 01/02/2019 FINDINGS: The heart size is normal. The aorta is tortuous. Evidence of old granulomatous disease is again see n. Mild scarring at the left lung base is redemonstrated. There is a right-sided Port-A-Cath, which has been placed in the interim, with the tip in the projection of the SVC. No focal areas of consoli dation, pneumothoraces, or pleural effusions are seen. A right humeral head prosthesis remains in pl tonya. IMPRESSION: No acute process. POS: OFF
--- NOTE | 2019-01-31 10:09 | OP ---
DATE OF PROCEDURE: 01/30/2019 PREOPERATIVE DIAGNOSIS: Ureteral cancer. POSTOPERATIVE DIAGNOSIS: Ureteral cancer. OPERATION PERFORMED: Placement of a standard size right subclavian power compatible MediPort. ANESTHESIA: Total intravenous anesthesia with local using 0.25% Marcaine with epinephrine. INDICATIONS: The patient is an 88-year-old white male, who was recently diagnosed with ureteral cancer. He requires chemotherapy for this. He presents at this time for MediPort placement for this purpose. FINDINGS: A standard size port was placed into his right subclavian vein uneventfully. He had standard anatomy internally and externally. There was essentially no blood loss and there were no complications. I used a low-profile power compatible MediPort. The patient's anatomy was within normal limits and there were no problems during the procedure. DESCRIPTION OF OPERATION: Informed consent was obtained. The patient was taken to the operating room where total intravenous anesthesia was obtained with the patient in supine position. Right periclavicular area was prepped with ChloraPrep and draped in sterile fashion. Local anesthetic was infiltrated and a large-gauge needle was passed under the clavicle in the subclavian vein. Guidewire was passed through the needle and fluoroscopically confirmed to enter the superior vena cava. Additional local anesthetic was infiltrated and transverse incision was created based on needle insertion site. A subcutaneous pocket was dissected inferiorly. Introducer dilator was passed over the guidewire under fluoroscopic guidance. The guidewire and dilator were removed, and the catheter was passed through the introducer. The tip of the catheter was positioned at the atriocaval junction and the catheter was trimmed to the appropriate length and secured to the locking hub of the MediPort. The port was then placed in the subcutaneous pocket where it was secured to the pectoral fascia with 2 interrupted sutures of 3-0 Prolene. The incision was then closed in layers with 3-0 and 4-0 Monocryl. Additional local anesthetic was infiltrated. The port was cannulated with a Lawson needle and it aspirated blood freely and was flushed with heparinized saline. Dermabond was placed externally on the skin incision. There were no complications. Blood loss was negligible. The patient tolerated the procedure well and was taken to recovery room in stable condition. Job ID: [id number]
== END 2019-01-30 16:07 | disposition home or self-care (01) ==
LOC: SDC 12:12
PROVIDERS: ATTEND Specialist
PROC: 05H533Z Insertion of Infusion Device into Right Subclavian Vein, Percutaneous Approach (ICD-10-PCS; principal; 2019-01-30)
DX: C66.9 Malignant neoplasm of unspecified ureter (principal); M19.90 Unspecified osteoarthritis, unspecified site; G62.9 Polyneuropathy, unspecified; Z85.828 Personal history of other malignant neoplasm of skin; Z96.642 Presence of left artificial hip joint; Z87.891 Personal history of nicotine dependence; Z98.890 Other specified postprocedural states; Z88.1 Allergy status to other antibiotic agents
CPT/HCPCS: 71045; C1788; J0131; J0690; J1642; J1885; J2001; J2405; J2704; J3010

== ENCOUNTER 2019-03-02 08:29 | Day surgery (SDC) | payer MEDICARE ==
[2019-03-01 11:30] VITALS: BMI 30.1
[2019-03-02] MEDS ORDERED: Iothalamate Meglumine 60% 50 ML VIAL FS ONE (10:01)
[2019-03-02] MEDS ORDERED: Sodium Chloride 0.9% 100 ML ONE (10:26)
[2019-03-02] MEDS ORDERED: cefTRIAXone\\ROCEPHIN 2 GM VIAL ONE (10:26)
--- NOTE | 2019-03-02 11:22 | RAD ---
Exam: Retrograde pyelogram: HISTORY: Stent replacement COMPARISON: 01/05/2019 FINDINGS: Dilatation of the left upper renal collecting system and renal pelvis with some multifocal areas of n arrowing involving the visualized upper left ureter. New stent is placed. Extensive postop laminectomy and left total hip replacement and right hip screw fixation. IMPRESSION: Dilatation of the left upper renal collecting system and renal pelvis with some multifocal areas of u reteral narrowing. Stent replacement. Other findings as above.
[2019-03-02] MEDS ORDERED: Lidocaine 1% PF 5 ML VIAL ONE (17:02)
[2019-03-02] MEDS ORDERED: PROPOFOL 200 MG/20 ML VIAL ONE (17:02)
[2019-03-02] MEDS ORDERED: Dexamethasone 20 MG/5 ML VIAL ONE (17:02)
[2019-03-02] MEDS ORDERED: Ondansetron PF 4 MG/2 ML Vial ONE (17:02)
--- NOTE | 2019-03-02 17:46 | OP ---
DATE OF PROCEDURE: 03/02/2019 PREOPERATIVE DIAGNOSES: Left ureteral cancer, left ureteral obstruction, left ureteral stent. POSTOPERATIVE DIAGNOSES: Left ureteral cancer, left ureteral obstruction, left ureteral stent. PROCEDURES PERFORMED: Cysto removal of left stent, left retrograde, and stent replacement. SPECIMEN REMOVED: Old stent. ESTIMATED BLOOD LOSS: None. FINDINGS: There was no evidence of cancer involving the urinary bladder. He had had tumor at the left ureteral orifice. It was a nodular tumor that we resected some of and before we place a stent a few weeks ago, visibly there was grossly less tumor and less swelling around this area. He has been undergoing chemotherapy. The retrograde study still showed hydronephrosis down to the left pelvic inlet. New stent placed was a 6 x 24 polaris without a string attached. DESCRIPTION OF PROCEDURE: Obtained written and verbal consent from the patient. Documented normal blood work and culture. After receiving some Rocephin, he was taken to the operating suite. He was placed in the supine position on the treatment table. PlexiPulse was placed in his lower extremities and turned on. He was given a general anesthetic and oral obturator intubation, placed in dorsal lithotomy position, sterilely prepped and draped. Fluoroscopy unit was brought in to help with stent removal and replacement and he was centered under it. Cystoscopy was performed with 22-Malay sheath. This was well lubricated, passed under direct vision through the male urethra into the bladder with a 30-degree lens and video camera, and monitor. The bladder was filled and emptied number of times being examined with both 30 and 70-degree lens. There was some trabeculation of bladder with some small cellules. Normal-appearing right ureteral stent exiting the left ureter. There was some inflammatory tissue, some of it could be cancer, but lot of it just looked like inflammatory tissue around the left ureteral orifice. The distal end of double-J stent was grasped, brought out through the urethral meatus. A guidewire was fed up across it up into that region of the renal pelvis. The stent was removed over the guidewire. A Lincoln was placed over the guidewire above the area of expected obstruction and we injected about 30 mL of contrast filling up, still a dilated upper collecting system and proximal ureter down to the pelvic inlet. The guidewires were placed. The open-ended catheter was removed and double-J stent was placed, and pushed up into place with aid of a pusher, so its proximal end coiled in the renal pelvis and its distal end coiled in the bladder when the wire was removed. It was effluxing the contrast easily. The bladder was drained. The instruments were removed. He was taken out of the dorsal lithotomy position, awakened, extubated, and taken by stretcher to recovery room. Job ID: [id number]
== END 2019-03-02 12:40 | disposition home or self-care (01) ==
LOC: SDC 08:29
PROVIDERS: ATTEND Urology
PROC: 0T778DZ Dilation of Left Ureter with Intraluminal Device, Via Natural or Artificial Opening Endoscopic (ICD-10-PCS; principal; 2019-03-02)
DX: C66.2 Malignant neoplasm of left ureter (principal); N13.1 Hydronephrosis with ureteral stricture, not elsewhere classified; Z79.899 Other long term (current) drug therapy; Z88.8 Allergy status to other drugs, medicaments and biological substances
CPT/HCPCS: 52332; 74420; C1758; J0696; J3490; Q9961

== ENCOUNTER 2019-04-23 09:44 | Outpatient (CLI) | payer MEDICARE ==
--- NOTE | 2019-04-23 10:29 | ULT ---
LEFT LOWER EXTREMITY VENOUS DUPLEX ULTRASOUND INCLUDING COLOR AND SPECTRAL DOPPLER IMAGING: HISTORY: Left leg swelling and edema. FINDINGS: Exam performed from groin to ankle including visualized greater saphenous, common femoral, superficia l femoral, profunda femoral, popliteal, trifurcation, and posterior tibial vein regions. Phasic flow noted at all levels. There is normal compressibility and normal augmentation. No intraluminal thro mbus. IMPRESSION: No evidence for deep venous thrombosis. POS: [facility]
== END 2019-04-23 09:45 | disposition home or self-care (01) ==
LOC: ULT 09:44
PROVIDERS: ATTEND Internal Medicine Hematology & Oncology
DX: M79.605 Pain in left leg (principal); R60.0 Localized edema; I82.90 Acute embolism and thrombosis of unspecified vein; C66.2 Malignant neoplasm of left ureter
CPT/HCPCS: 80053; 82248; 83615; 83735; 84100; 84550

== ENCOUNTER 2019-05-03 08:41 | Outpatient (CLI) | payer MEDICARE ==
--- NOTE | 2019-05-03 09:54 | CT ---
CONTRAST ENHANCED CT IMAGES OF ABDOMEN AND PELVIS: HISTORY: Ureteral cancer C66.2. Comparison made to previous exam from 12/26/2018. FINDINGS: The lung bases are unremarkable. No evidence of free intraperitoneal air seen. The liver is stable and unchanged, compatible with some small parenchymal cysts. The spleen is unrema rkable. The pancreas is unremarkable. Gallbladder contains some gallstones. There is atrophy of the left renal parenchyma. There is marked decompression of the left collecting s ystem. There has been placement of a left ureteral stent. The area of soft tissue density in the mid to distal aspect of the left ureter is decreased in diamet er. This previously measured 4.5 cm, now it has decreased in size measuring 3.7 cm. No evidence of periaortic lymphadenopathy seen. No evidence of pelvic lymphadenopathy seen. Bilateral hip surgical hardware in place. The patient has had previous lumbar laminotomy changes. IMPRESSION: 1. Decreased left-sided hydronephrosis with placement of a left ureteral stent. There is decreased s ize in the size of the soft tissue mass involving the mid to distal left ureter. 2. Cholelithiasis. Transcribed Date/Time: 05/03/2019 10:45 AM
== END 2019-05-03 08:42 | disposition home or self-care (01) ==
LOC: BICCT 08:41
PROVIDERS: ATTEND Internal Medicine Hematology & Oncology
DX: C66.2 Malignant neoplasm of left ureter (principal); K80.20 Calculus of gallbladder without cholecystitis without obstruction; N13.30 Unspecified hydronephrosis; N28.9 Disorder of kidney and ureter, unspecified; Z96.0 Presence of urogenital implants
CPT/HCPCS: 74177

== ENCOUNTER 2019-06-11 08:11 | Day surgery (SDC) | payer MEDICARE ==
[2019-06-08 13:59] VITALS: BMI 29.2
[2019-06-11 09:06] LABS: Hemoglobin 13.5 g/dL (14.0-18.0); Mean Corpuscular Hemoglobin 35.1 pg (27.0-31.0); Mean Platelet Volume 6.7 fL (7.4-10.4); Platelet Count 132 thou/uL (130-400); RBC Distribution Width 13.5 % (11.5-14.5); Red Blood Cell (RBC) Count 3.84 mill/uL (4.70-6.10); White Blood Cell (WBC) Count 7.2 thou/uL (4.8-10.8)
[2019-06-11 09:26] LABS: Anion Gap 14 mmol/L (10-20); BUN (Urea Nitrogen) 17 mg/dL (8.4-25.7); Calc. Creatinine Clearance 53 mL/min (70-130); Calcium 9.9 mg/dL (7.8-10.44); Carbon Dioxide 24 mmol/L (23-31); Chloride 102 mmol/L (98-107); Estimated GFR-MDRD 53; Glucose 110 mg/dL (83-110); Potassium 4.1 mmol/L (3.5-5.1); Sodium 136 mmol/L (136-145)
[2019-06-11] MEDS ORDERED: Iothalamate Meglumine 60% 50 ML VIAL FS ONE (10:12)
[2019-06-11] MEDS ORDERED: cefTRIAXone\\ROCEPHIN 1 GM VIAL ONE (10:46)
[2019-06-11] MEDS ORDERED: Sodium Chloride 0.9% 100 ML ONE (10:47)
[2019-06-11] MEDS ORDERED: Fentanyl 100 MCG/2 ML VIAL ONE (10:50)
--- NOTE | 2019-06-11 12:16 | OP ---
DATE OF PROCEDURE: 06/11/2019 PREOPERATIVE DIAGNOSES: Left ureteral obstruction, left ureteral cancer, managed with left ureteral stent. POSTOPERATIVE DIAGNOSES: Left ureteral obstruction, left ureteral cancer, managed with left ureteral stent. PROCEDURES PERFORMED: Cysto, removal of left stent, left retrograde, and replacement of left stent. ANESTHETIC: General. ESTIMATED BLOOD LOSS: Minimal. FINDINGS: He is still hydronephrotic. The old stent was in good position, still patent. It was removed and a new 6 x 24 was placed. No string was left attached. DESCRIPTION OF PROCEDURE: After obtaining written and verbal consent from the patient after receiving some IV Rocephin 1 g, he was taken to the operating suite. He was placed in the supine position on the treatment table. PlexiPulses were placed on his lower extremities and turned on. He was given a general anesthetic and oral obturator intubation. He was placed in dorsal lithotomy position, sterilely prepped and draped. Fluoroscopy unit was positioned over and a rod pointer KUB was taken. Cystoscopy was performed with 22-[place] sheath. This was well lubricated, passed under direct vision through the male urethra into the urinary bladder with the aid of a 30-degree lens and video camera and monitor. He has had a prior TURP of the prostate. Stent was in good position in the bladder. He has some edema and some tumor still near and around the left ureteral orifice. Nothing else was seen in the bladder. The distal end of the double-J stent was grasped and brought out through the urethral meatus and a guidewire was fed through this and the stent was removed intact. A 5-[place]an Pollack was placed over the guidewire up into the area of the renal pelvis. The wire was removed. Contrast was injected, filling out the renal pelvis. It is still very dilated down to the level of the obstructing tumor. The guidewire was replaced. The new stent was placed over the guidewire and pushed up in place with the aid of a pusher, so its proximal end coiled in the renal pelvis and its distal end coiled in the bladder when the wire was removed. The bladder was drained. The instruments were removed. The patient was taken out of the dorsal spine position, awakened, extubated, and taken by stretcher to the recovery room. Job ID: [id number]
--- NOTE | 2019-06-11 12:17 | RAD ---
RETROGRADE PYELOGRAM: Date: 06/11/19 HISTORY: Stent placement. FINDINGS: A series of 9 images show a stent placed into the left collecting system with marked dilatation of th e left collecting system and renal pelvis. IMPRESSION: Placement of a left ureteral stent. POS: [facility]
== END 2019-06-11 13:15 | disposition home or self-care (01) ==
LOC: SDC 08:11
PROVIDERS: ATTEND Urology
PROC: 0T9780Z Drainage of Left Ureter with Drainage Device, Via Natural or Artificial Opening Endoscopic (ICD-10-PCS; principal; 2019-06-11)
DX: N13.1 Hydronephrosis with ureteral stricture, not elsewhere classified (principal); C66.2 Malignant neoplasm of left ureter; Z79.82 Long term (current) use of aspirin; Z79.899 Other long term (current) drug therapy
CPT/HCPCS: 36415; 74420; 80048; 85027; C1758; J0696; J3010; J3490

== ENCOUNTER 2019-07-25 11:40 | Observation (INO) | payer MEDICARE ==
--- NOTE | 2019-07-25 12:25 | ULT ---
EXAM: Left lower extremity venous duplex ultrasound with color and spectral Doppler imaging: HISTORY: Left leg swelling and edema COMPARISON: 04/23/2019 FINDINGS: Exam performed from the groin to the ankle including the visualized greater saphenous, common femoral , superficial femoral, profunda femoral, popliteal, trifurcation, and posterior tibial veins. There is extensive intraluminal thrombus including the common femoral vein, superficial femoral vein, and popliteal vein down to the level of the posterior tibial vein and including the profunda femoral vein. IMPRESSION: Extensive deep venous thrombosis as above. Dr. Tineo was notified by the histotechnologist supervisor in regards to these abnormal findings at 12:1 6 PM CODE CR
[2019-07-25 12:54] LABS: Hemoglobin 12.5 g/dL (14.0-18.0); Mean Corpuscular HGB CONC 33.9 g/dL (32.0-36.0); Mean Corpuscular Hemoglobin 33.9 pg (27.0-31.0); Mean Corpuscular Volume 99.8 fL (78.0-98.0); Mean Platelet Volume 7.2 fL (7.4-10.4); Platelet Count 120 thou/uL (130-400); RBC Distribution Width 12.8 % (11.5-14.5); Red Blood Cell (RBC) Count 3.69 mill/uL (4.70-6.10); White Blood Cell (WBC) Count 6.8 thou/uL (4.8-10.8)
[2019-07-25 13:00] LABS: INR-International Normal Ratio 1.1; PTT 32.1 SEC (22.9-36.1); Prothrombin Time 14.3 SEC (12.0-14.7)
[2019-07-25 13:10] LABS: Band 5 % (5-11); Eosinophils 1 % (0-10); Lymphocytes 19 % (21-51); MDiff Complete? YES; Monocytes 8 % (0-10); Neutrophil 66 % (42-75); Platelet Morphology Comment Appears Decreased; RBC Morphology Normal
[2019-07-25 13:13] LABS: ALT (SGPT) 13 U/L (8-55); AST (SGOT) 17 U/L (5-34); Albumin 4.1 g/dL (3.4-4.8); Alkaline Phosphatase 99 U/L (40-150); Anion Gap 15 mmol/L (10-20); BUN (Urea Nitrogen) 13 mg/dL (8.4-25.7); Bilirubin, Total 0.5 mg/dL (0.2-1.2); Calc. Creatinine Clearance 0 mL/min (70-130); Calcium 9.4 mg/dL (7.8-10.44); Carbon Dioxide 25 mmol/L (23-31); Chloride 101 mmol/L (98-107); Estimated GFR-MDRD 60; Globulin 3.6 g/dL (2.4-3.5); Glucose 117 mg/dL (83-110); Potassium 4.8 mmol/L (3.5-5.1); Protein, Total 7.7 g/dL (5.8-8.1); Sodium 136 mmol/L (136-145)
[2019-07-25] MEDS ORDERED: Enoxaparin Sodium 100 MG/ML SYRINGE ONE (13:56)
--- NOTE | 2019-07-25 14:03 | CT ---
EXAM: CT angiogram of the chest including 3-D rendering: HISTORY: Large DVT in left leg in a patient with known cancer with leg swelling COMPARISON: None FINDINGS: Adequate opacification of the central pulmonary arteries. The more peripheral smaller size branches p articularly in the mid and lower lung zones show less than optimal imaging because of severe motion and decreased bolus quality. No evidence for aortic aneurysm or dissection. No convincing CT evidence for acute pulmonary embolism. No significant acute pulmonary parenchymal process. There is an inferior left thyroid nodule extending into the left upper neck measuring approximately 2 .2 cm in size evidence for substernal thyroid. No evidence for pleural or pericardial effusion. Small hiatal hernia. Evidence for left upper renal pole hydronephrosis, which is only partially seen. IMPRESSION: No convincing CT evidence for acute pulmonary embolism. Evidence for possible left upper pole renal hydronephrosis only partially seen. Left substernal thyroid with a 2.2 cm nodular area.
[2019-07-25] MEDS ORDERED: traMADol HCl 50 MG TAB ONE (16:12)
[2019-07-25] MEDS ORDERED: ISOVUE-370 76%-LOCM 1 ML ONE (16:40)
[2019-07-25] MEDS ORDERED: Polyethylene Glycol 3350 17 GM Packet PO PRN (17:44)
[2019-07-25] MEDS ORDERED: Acetaminophen 325 MG TAB PO PRN (18:18)
[2019-07-25] MEDS ORDERED: Ondansetron PF 4 MG/2 ML Vial IVP PRN (18:18)
[2019-07-25] MEDS ORDERED: Ondansetron ODT 4 MG TAB PO PRN (18:18)
[2019-07-25] MEDS: Apixaban 5 MG TAB PO SCH (20:58)
[2019-07-25] MEDS: Famotidine 20 MG TAB PO SCH (20:58)
[2019-07-25] MEDS: Zolpidem Tartrate 5 MG TAB PO PRN (20:58)
[2019-07-25 22:36] VITALS: BMI 31.4
--- NOTE | 2019-07-26 01:00 | HP ---
PRIMARY CARE PHYSICIAN: [facility]. CHIEF COMPLAINT: Left leg swelling. HISTORY OF PRESENT ILLNESS: Mr. 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 Olguin and undergoing immunotherapy. He had presented to [facility] with left leg swelling, it has been ongoing over the last six months. He states the symptoms worsened over the last four days and he had noticed worsening pain and swelling on the left leg. He had denied any fever, chills, any headache, blurred vision, dizziness, any chest pain, palpitations, shortness of breath, abdominal pain, nausea, or vomiting. He was [facility] to rule out blood clot. A venous Doppler ultrasound of his lower extremity was performed and showed an extensive deep venous thrombosis noted in his common femoral vein, superficial femoral vein, and popliteal vein down to the level of posterior tibial vein. He also underwent a CTA of the chest, which ruled out any CT evidence of PE. The patient was given a single dose of Lovenox in the ED with 1 mg/kg dose. Vascular Surgery was contacted who had recommended medical management with anticoagulation over surgery at this time. The patient was then transferred up to the orthopedic surgical floor for further observation for any signs of bleeding on this new anticoagulation. REVIEW OF SYSTEMS: All other systems reviewed and found to be negative unless mentioned in the HPI. PAST MEDICAL HISTORY: BPH and ureteral cancer on the left. PAST SURGICAL HISTORY: Left hip replacement, right shoulder replacement, bilateral hernia surgeries, and lumbar back surgery of L3-L5. PAST PSYCHIATRIC HISTORY: None. SOCIAL HISTORY: The patient drinks socially, which is very rarely. He denied any tobacco or illicit drug use. He states that he is a former tobacco user in which he used to chew tobacco. ALLERGIES: CIPROFLOXACIN. CURRENT HOME MEDICATIONS: 1. Aspirin 81 mg daily. 2. Vitamin B12 500 mcg p.o. daily. 3. Nivolumab 3 mg/kg IV q.30 days. 4. PreserVision one capsule p.o. daily. 5. Polyethylene glycol 17 g p.o. daily. PHYSICAL EXAMINATION: VITAL SIGNS: Blood pressure 143/72, pulse 87, respirations 20, temperature 98.2, O2 saturation 96% on room air. GENERAL: The patient is awake, alert, and oriented x3. He is currently lying comfortably in bed and in no acute distress. His family is at bedside. HEENT: Atraumatic, normocephalic. Pupils are round and reactive to light. Extraocular muscles intact. Moist mucous membranes noted. NECK: Soft and supple. Trachea midline. CARDIOVASCULAR: Positive S1 and S2. Regular rate and rhythm. No murmur auscultated. The patient does have a MediPort to the right side of his chest that is clear and no signs of infection. RESPIRATORY: Clear to auscultation bilaterally. No wheezes, rales, or rhonchi. ABDOMEN: Soft, nontender. Bowel sounds present. MUSCULOSKELETAL: Strength 5+ bilaterally in upper and lower extremities. Moves all extremities equal. He has 2 to 3+ pitting edema to the left lower leg up to the groin, which appears erythematous in color. However, nontender to palpation. Pedal and radial pulses 2+ bilaterally. NEUROLOGIC: Cranial nerves 2 through 12 grossly intact. No focal deficits noted. Speech intact and normal. Gait not assessed. The patient has slight hard of hearing, but he has bilateral hearing aids in place. SKIN: Warm, dry, and intact. Skin changes noted above to left lower extremity. PSYCHIATRIC: Good mood and affect. LABORATORY DATA: WBC 6.8, RBC 3.69, hemoglobin 12.5, hematocrit 36.9, platelets 120. PT 14.3, INR 1.1, PTT 32.1. Sodium 136, potassium 4.8, anion gap 15, BUN 13, creatinine 1.15, estimated GFR 60, glucose 117. DIAGNOSTIC IMAGING: Venous Doppler ultrasound of left lower extremity showed an extensive deep venous thrombosis. CTA of chest showed no CT evidence of acute pulmonary embolism. ASSESSMENT AND PLAN: 1. Acute deep vein thrombosis of left lower extremity. The patient was given Lovenox in the ED and will be transitioned to Eliquis 10 mg p.o. b.i.d. for 7 days and then 5 mg p.o. b.i.d. thereafter. We will monitor H and H and coag studies, and we will recheck these in the a.m. We will also monitor for any signs of bleeding. 2. History of benign prostate enlargement. 3. History of ureteral cancer. The patient will follow with his current oncologist Dr. Olguin. 4. Deep venous thrombosis and gastrointestinal prophylaxis. He will be treated with Eliquis for treatment of deep venous thrombosis. 5. Code status, full code. 6. Surrogate decision maker is his , Leticia. DISPOSITION: Pending patient progress. However, he will likely be discharged home in the next 1 to 2 days on an oral anticoagulation and will need close followup upon discharge. Job ID: [id number]
[2019-07-26] MEDS: Zolpidem Tartrate 5 MG TAB PO PRN (03:04)
[2019-07-26 05:09] LABS: INR-International Normal Ratio 1.6; Prothrombin Time 19.3 SEC (12.0-14.7)
[2019-07-26 05:10] LABS: PTT 49.3 SEC (22.9-36.1)
[2019-07-26 05:26] LABS: Anion Gap 14 mmol/L (10-20); BUN (Urea Nitrogen) 15 mg/dL (8.4-25.7); Calc. Creatinine Clearance 59 mL/min (70-130); Calcium 8.9 mg/dL (7.8-10.44); Carbon Dioxide 24 mmol/L (23-31); Chloride 101 mmol/L (98-107); Estimated GFR-MDRD 56; Glucose 119 mg/dL (83-110); Potassium 4.1 mmol/L (3.5-5.1); Sodium 135 mmol/L (136-145)
[2019-07-26 05:41] LABS: Band 1 % (5-11); Hemoglobin 11.6 g/dL (14.0-18.0); Lymphocytes 28 % (21-51); MDiff Complete? YES; Macrocytosis SLIGHT = 6-15 cells (100X) (0-5/hpf); Mean Corpuscular HGB CONC 33.9 g/dL (32.0-36.0); Mean Platelet Volume 7.1 fL (7.4-10.4); Monocytes 3 % (0-10); Neutrophil 68 % (42-75); Platelet Count 111 thou/uL (130-400); Platelet Morphology Comment Appears Decreased; RBC Distribution Width 12.7 % (11.5-14.5); Red Blood Cell (RBC) Count 3.42 mill/uL (4.70-6.10); White Blood Cell (WBC) Count 6.2 thou/uL (4.8-10.8)
[2019-07-26] MEDS: Famotidine 20 MG TAB PO SCH (08:51)
[2019-07-26] MEDS: Apixaban 5 MG TAB PO SCH (08:51)
[2019-07-26 12:07] LABS: Hemoglobin 12.2 g/dL (14.0-18.0); Mean Corpuscular HGB CONC 33.8 g/dL (32.0-36.0); Mean Corpuscular Hemoglobin 33.9 pg (27.0-31.0); Mean Platelet Volume 7.3 fL (7.4-10.4); Platelet Count 117 thou/uL (130-400); RBC Distribution Width 12.5 % (11.5-14.5); White Blood Cell (WBC) Count 5.8 thou/uL (4.8-10.8)
[2019-07-26 12:21] LABS: ALT (SGPT) 14 U/L (8-55); AST (SGOT) 19 U/L (5-34); Albumin 3.9 g/dL (3.4-4.8); Alkaline Phosphatase 95 U/L (40-150); Anion Gap 12 mmol/L (10-20); BUN (Urea Nitrogen) 14 mg/dL (8.4-25.7); Bilirubin, Total 0.4 mg/dL (0.2-1.2); Calc. Creatinine Clearance 61 mL/min (70-130); Calcium 9.2 mg/dL (7.8-10.44); Carbon Dioxide 25 mmol/L (23-31); Chloride 101 mmol/L (98-107); Estimated GFR-MDRD 58; Globulin 3.4 g/dL (2.4-3.5); Glucose 114 mg/dL (83-110); Protein, Total 7.3 g/dL (5.8-8.1); Sodium 134 mmol/L (136-145); Uric Acid 5.4 mg/dL (3.5-7.2)
[2019-07-26 12:23] LABS: Band 1 % (5-11); Lymphocytes 20 % (21-51); MDiff Complete? YES; Monocytes 14 % (0-10); Neutrophil 62 % (42-75); Platelet Morphology Comment Appears Decreased; Polychromasia SLIGHT = 2-3 cells (100X) (0-2/hpf)
[2019-07-26 12:32] VITALS: BP 136/68; TEMP 98.2
[2019-07-26 12:39] LABS: T4 6.7 ug/dL (4.87-11.72); Thyroid Stimulating Hormone 1.3243 uIU/mL (0.35-4.94)
--- NOTE | 2019-07-26 16:03 | PDOC.EVN ---
Event Note - Event Note Event Note: Seen and examined/ Discharged home today. Discharge summary dictated. #[id number]
--- NOTE | 2019-07-26 16:49 | DIS ---
DATE OF ADMISSION: 07/25/2019 DATE OF DISCHARGE: 07/26/2019 PRIMARY CARE PHYSICIAN: Earlene Monique. DISCHARGE DIAGNOSES: 1. Acute deep vein thrombosis of left lower extremity. 2. Marked left lower extremity swelling. 3. Ureteral cancer on treatment. 4. Benign prostatic hyperplasia. HOSPITAL COURSE: An 89-year-old male patient with known history of left ureteric cancer on treatment as well as BPH, who presented to the hospital due to worsening left lower extremity swelling associated with pain in the last 6 weeks. The patient was evaluated with Doppler, which showed extensive deep vein thrombosis involving the left lower extremity. Further evaluation with CT angio was negative for PE. The patient was started on Lovenox anticoagulation in the ED, which was transitioned to oral Eliquis on admission. With limb elevation, the left lower extremity swelling improved as well as the leg pain. The patient remained stable and was subsequently discharged home to continue oral anticoagulation. PHYSICAL EXAMINATION: VITAL SIGNS: Temperature 98.2, pulse 61, respiratory rate 18, SpO2 of 94, and BP 136/68. GENERAL: Healthy-looking elderly male, in no obvious distress. Afebrile. Anicteric. Acyanotic. HEENT: Normocephalic, atraumatic. Oral mucosa is moist. CARDIOVASCULAR: Regular rhythm and rate with normal heart sounds one and two. RESPIRATORY: Good air entry bilaterally with no obvious crackle or rhonchi or use of accessory muscles. GI: Full, soft, nontender, nondistended with normal bowel sounds. EXTREMITIES: Marked swelling of left lower extremity from groin to toe with some mild resolving ecchymosis. No obvious erythema was appreciated. LACING STRING CUTTER: Conscious, alert, oriented x3 with appropriate mental status. Cranial nerves 2 through 12 are grossly intact. The patient is hard of hearing. DISCHARGE DISPOSITION: Home. DISCHARGE CONDITION: Improved. FOLLOWUP: 1. With PCP in 7 days. 2. The patient is to keep appointment with Dr. Olguin, the oncologist. DISCHARGE MEDICATIONS: See discharge med rec. Most importantly, the patient is on Eliquis 10 mg p.o. daily until August 01. From August 02, the patient is to be on Eliquis 5 mg p.o. b.i.d. Job ID: [id number]
[2019-08-02] MEDS ORDERED: Apixaban 5 MG TAB PO SCH (09:00)
== END 2019-07-26 14:30 | disposition home or self-care (01) ==
LOC: ERS 11:40 → SURG A 15:00 → ERS 17:27
PROVIDERS: ADMIT Internal Medicine Nephrology; ATTEND Internal Medicine Nephrology
DX: I82.4Z2 Acute embolism and thrombosis of unspecified deep veins of left distal lower extremity (principal); C66.2 Malignant neoplasm of left ureter; N40.0 Benign prostatic hyperplasia without lower urinary tract symptoms; Z79.82 Long term (current) use of aspirin; Z79.899 Other long term (current) drug therapy; Z87.891 Personal history of nicotine dependence; Z88.1 Allergy status to other antibiotic agents
CPT/HCPCS: 71275; 80048; 80053; 83615; 84436; 84550; 85025; 85610 ×2; 85730 ×2; 93971; 96372; 97139; 99284; G0378 ×3; 36415; 84443; J1650; Q9966

== ENCOUNTER 2019-08-09 07:47 | Observation (INO) | payer MEDICARE ==
[2019-08-09 08:29] LABS: #Lymphocytes 1.1 thou/uL (1.20-3.40); #Monocytes 0.6 thou/uL (0.11-0.59); #Neutrophils 4.3 thou/uL (1.40-6.50); %Basophils 0.3 % (0.0-1.0); %Eosinophils 0.7 % (0.0-10.0); %Lymphocytes 17.8 % (21.0-51.0); %Monocytes 10.4 % (0.0-10.0); %Neutrophils 70.7 % (42.0-75.0); Hemoglobin 11.6 g/dL (14.0-18.0); Mean Corpuscular HGB CONC 34.4 g/dL (32.0-36.0); Mean Corpuscular Hemoglobin 33.8 pg (27.0-31.0); Mean Corpuscular Volume 98.1 fL (78.0-98.0); Mean Platelet Volume 6.9 fL (7.4-10.4); Platelet Count 168 thou/uL (130-400); RBC Distribution Width 12.6 % (11.5-14.5); Red Blood Cell (RBC) Count 3.44 mill/uL (4.70-6.10); White Blood Cell (WBC) Count 6.1 thou/uL (4.8-10.8)
[2019-08-09 08:42] LABS: INR-International Normal Ratio 1.3; PTT 36.8 SEC (22.9-36.1); Prothrombin Time 15.9 SEC (12.0-14.7)
[2019-08-09 08:44] LABS: Bilirubin Small (Negative); Blood, Urine Large (Negative); Glucose, Urine (Dipstick) Negative (Negative); Leukocyte Trace (Negative); Nitrite Negative (Negative); Protein, Urine (Dipstick) > or equal to 300 mg/dL (Neg-Trace); Urobilinogen 0.2 mg/dL (Less than 2)
[2019-08-09 08:51] LABS: Clarity Hazy (Clear)
[2019-08-09 08:53] LABS: RBC/HPF Greater than 50 HPF (0-3); Squamous Epithelial None Seen HPF (0-3); WBC/HPF 0-3 HPF (0-3)
[2019-08-09 08:54] LABS: ALT (SGPT) 17 U/L (8-55); AST (SGOT) 24 U/L (5-34); Albumin 3.9 g/dL (3.4-4.8); Alkaline Phosphatase 102 U/L (40-150); Anion Gap 16 mmol/L (10-20); BUN (Urea Nitrogen) 14 mg/dL (8.4-25.7); Bilirubin, Total 0.4 mg/dL (0.2-1.2); Calc. Creatinine Clearance 0 mL/min (70-130); Calcium 9.2 mg/dL (7.8-10.44); Carbon Dioxide 23 mmol/L (23-31); Chloride 101 mmol/L (98-107); Estimated GFR-MDRD 60; Glucose 126 mg/dL (83-110); Potassium 4.1 mmol/L (3.5-5.1); Protein, Total 7.9 g/dL (5.8-8.1); Sodium 136 mmol/L (136-145)
[2019-08-09 08:54] LABS: Bacteria/HPF Rare-Few HPF (None Seen)
[2019-08-09] MEDS ORDERED: Acetaminophen 650 MG Suppository PR PRN (10:34)
[2019-08-09] MEDS ORDERED: Ondansetron PF 4 MG/2 ML Vial IVP PRN (10:34)
[2019-08-09] MEDS ORDERED: Acetaminophen 325 MG TAB PO PRN (10:34)
--- NOTE | 2019-08-09 11:21 | HP ---
PRIMARY CARE PROVIDER: Dr. Houston Nicolas. CHIEF COMPLAINT: Blood in urine. HISTORY OF PRESENT ILLNESS: Mr. Acuña is a pleasant 89-year-old gentleman, who was seen at [facility] on August 09, 2019. He has a history of left ureteric cancer. He was hospitalized at this facility from July 25 to of this year for acute deep vein thrombosis of left lower extremity. He was started on Eliquis and discharged home. He is currently taking Eliquis 5 mg 2 times a day. Around midnight, he noticed hematuria. He reports multiple episodes of hematuria. He also reports some black material in the urine. He denies any fevers or chills. He denies any lightheadedness or chest pain. He denies any nausea or vomiting. He presented to the emergency room because of hematuria. His case was discussed with Oncology and Urology Services by emergency room physician. He has been referred to Hospitalist Service for admission to the hospital. REVIEW OF SYSTEMS: All systems were reviewed and found to be negative except for the pertinent positives mentioned above. PAST MEDICAL HISTORY: Left ureteric cancer, benign prostate hyperplasia. PAST SURGICAL HISTORY: Left hip replacement, right shoulder replacement, bilateral hernia surgery, lumbar spine surgery, and ureteric stent. SOCIAL HISTORY: Rare alcohol use, no tobacco or recreational drug use. FAMILY HISTORY: No family history of coronary artery disease. ALLERGIES: CIPROFLOXACIN. CURRENT HOME MEDICATIONS: 1. Aspirin 81 mg daily. 2. Vitamin B12 of 500 mcg daily. 3. Nivolumab 3 mg/kg IV every 30 days. 4. PreserVision one capsule daily. 5. Polyethylene glycol 17 g daily. 6. Eliquis 5 mg 2 times a day. CODE STATUS: I discussed his code status. He is full code. PHYSICAL EXAMINATION: GENERAL: On examination, Mr. Acuña is awake and alert, not in acute distress. VITAL SIGNS: Blood pressure is 151/78, pulse 63, respiratory rate 17, and oxygen saturation 96% on room air. He is afebrile. EYES: No scleral icterus, no conjunctival pallor. ENT: Moist mucosal membranes. No oropharyngeal erythema or exudates. The patient is hard of hearing. NECK: Supple, nontender, trachea is midline. RESPIRATORY: Accessory muscles of breathing are not active. Chest wall movements are symmetric bilaterally. Lungs are clear to auscultation without wheeze, rhonchi, or crepitations. CARDIOVASCULAR: S1 and S2 are heard, regular. Peripheral pulses palpable. No carotid bruit. No pericardial rub. ABDOMEN: Soft, nontender, bowel sounds are heard. MUSCULOSKELETAL: Power is 5/5 in all 4 extremities. The patient has left lower extremity swelling. SKIN: No rashes or subcutaneous nodules. LYMPHATIC: No cervical lymphadenopathy. PSYCHIATRIC: Normal mood, normal affect, the patient is oriented to person, place, and time. LABORATORY DATA: Mr. Acuña's labs and investigations were reviewed. He has normal white count, macrocytic anemia with hemoglobin 11.6, last known hemoglobin was 12.2 on July 26, 2019, normal platelet count, INR 1.3, unremarkable comprehensive metabolic profile and urinalysis that is positive for large amount of blood and trace amount of leukocyte esterase. ASSESSMENT AND PLAN: Mr. Acuña is a pleasant 89-year-old gentleman, who was seen at [facility] on August 09, 2019. His problem list includes: 1. Hematuria: Mr. Acuña is presenting with hematuria in the context of taking Eliquis for deep vein thrombosis. He will be admitted to the hospital. Urology Service has been consulted by emergency room physician. We will stop Eliquis and check his H and H. 2. Deep vein thrombosis: Mr. Acuña has recently diagnosed deep vein thrombosis. Eliquis is being stopped secondary to hematuria. We will consult CV Surgery for consideration for inferior vena cava filter placement. 3. Benign prostate hypertrophy: This appears to be stable. 4. Ureteric cancer: The patient to follow up with oncologist as outpatient. Many thanks for allowing me to participate in your patient's care. Please feel free to contact me with any questions or concerns. LEVEL OF RISK: Moderate. LEVEL OF COMPLEXITY: Moderate. Job ID: [id number]
[2019-08-09] MEDS ORDERED: Lidocaine 1% (PF) 30 ML VIAL ONE (11:53)
[2019-08-09 12:59] VITALS: BMI 28.7
[2019-08-09 13:25] LABS: Hemoglobin 11.4 g/dL (14.0-18.0)
[2019-08-09] MEDS ORDERED: traMADol HCl 50 MG TAB PO PRN (13:39)
[2019-08-09] MEDS ORDERED: Iopamidol 370 76% 50 ML VIAL FS ONE (16:01)
[2019-08-09] MEDS ORDERED: D5 1/2 NS 500 ML IV SCH (17:15)
[2019-08-09] MEDS: Dextrose 5 %-0.45 % NaCl 1,000 ML IV SCH (17:20)
--- NOTE | 2019-08-09 18:56 | CON ---
DATE OF CONSULTATION: 08/09/2019 HISTORY OF PRESENT ILLNESS: Mr. Acuña is an 89-year-old gentleman, who has history of ureteral cancer and left leg DVT. He presented with hematuria through the emergency department. He has been on Eliquis at home. I have been asked to see him for IVC filter placement. PAST MEDICAL HISTORY: 1. Left ureteral cancer. 2. Left leg DVT. 3. BPH. PAST SURGICAL HISTORY: 1. Left hip replacement, right shoulder replacement. 2. Bilateral hernia surgery. 3. Lumbar spine surgery. 4. Ureteral stent. SOCIAL HISTORY: He does not use tobacco. ALLERGIES: CIPRO. CURRENT MEDICATIONS: 1. Aspirin 81 mg daily. 2. Eliquis 5 mg b.i.d. 3. Nivolumab 3 mg/kg IV every 30 days. 4. Vitamin B12. 5. Polyethylene glycol. PHYSICAL EXAMINATION: GENERAL: This is a well-developed, well-nourished man, sitting up in the emergency department in the chair awaiting on admission. VITAL SIGNS: His heart rate is 78 and regular, blood pressure is 120/76. LUNGS: Clear bilaterally. HEART: Rhythm is regular. ABDOMEN: Soft and nontender. EXTREMITIES: No edema. ASSESSMENT AND PLAN: Extensive thrombus in the left leg diagnosed on 07/25 with anticoagulation with Eliquis. Subsequent hemorrhage making anticoagulation untenable. I have discussed permanent inferior vena cava filter placement with him and he is agreeable to plan for filter placement today. Job ID: [id number]
[2019-08-09] MEDS ORDERED: Melatonin 3 MG TAB PO PRN (20:37)
[2019-08-10] MEDS: Dextrose 5 %-0.45 % NaCl 1,000 ML IV SCH (02:40)
[2019-08-10] MEDS ORDERED: Cyanocobalamin (Vitamin B-12) 1,000 MCG TAB PO SCH (09:00)
[2019-08-10] MEDS ORDERED: Vit A,C & E/Lutein/Minerals Tablet PO SCH (09:00)
[2019-08-10] MEDS ORDERED: Docusate 100 MG CAP PO PRN (09:24)
--- NOTE | 2019-08-10 09:24 | OP ---
DATE OF PROCEDURE: 08/09/2019 PREOPERATIVE DIAGNOSIS: Left deep venous thrombosis with subsequent bleed on anticoagulation. POSTOPERATIVE DIAGNOSIS: Left deep venous thrombosis with subsequent bleed on anticoagulation. PROCEDURES PERFORMED: 1. Inferior venacavogram. 2. Inferior vena cava filter placement - TrapEase permanent vena cava filter. ANESTHESIA: 1% lidocaine for local. TOTAL FLUORO TIME: 0.8 minutes. TOTAL CONTRAST: 20 mL. DESCRIPTION OF PROCEDURE: After consent was obtained, the patient was brought to the catheterization lab and placed in supine position on the catheterization lab table. Groins were prepped and draped in usual sterile fashion. Using ultrasound guidance, the right common femoral artery was anesthetized with 1% lidocaine and subsequently accessed with micropuncture needle. Micropuncture wire and sheath were placed. Hand-injected right external iliac vein venogram was performed. Cavogram sheath was then passed over Bentson guidewire into the abdominal vena cava. Multiple hand-injected venacavograms were performed to localize the renal veins. The lowest renal vein was the left renal vein localized at the superior margin of L2. Tip of the filter was positioned at the mid body of L2 and deployed without difficulty. Filter seated nicely. The vena cava had measured less than 2.5 cm in diameter. The sheath was removed, and manual pressure held for hemostasis. The patient tolerated the procedure well and was transferred back to his room in stable condition. Job ID: [id number]
[2019-08-10] MEDS ORDERED: Senokot S 8.6-50 MG TAB PO SCH (11:00)
[2019-08-10] MEDS ORDERED: Milk Of Magnesia 30 ML UDCUP PO SCH (11:00)
[2019-08-10 11:10] VITALS: TEMP 98
[2019-08-10 11:32] VITALS: BP 162/74
--- NOTE | 2019-08-10 12:16 | DIS ---
DATE OF ADMISSION: 08/09/2019 DATE OF DISCHARGE: 08/10/2019 DISCHARGE DISPOSITION: Home. FOLLOWUP: 1. Follow up with primary care physician, Dr. Sidney Nicolas, in 1 week. 2. Follow up with Dr. Pernell Davis in 1 week. 3. Follow up with Dr. Pernell Biswas in 2 weeks. The patient was seen and examined on the day of discharge. Denies any new complaints. No chest pain, shortness of breath, palpitations. DISCHARGE MEDICATIONS: 1. Eliquis has been discontinued. 2. The patient will restart aspirin after 2 days. 3. All other home medications were left unchanged. SIGNIFICANT LABORATORY DATA: Hemoglobin on admission 11.6, at discharge 11.4. His hemoglobin last week was 12.2. PT of 15.9, INR 1.3. Creatinine 1.1 with BUN 14. Urinalysis showed greater than 50 RBCs. INPATIENT PROCEDURES: On August 09, the patient underwent IVC filter placement due to recent diagnosis of left lower extremity DVT with subsequent bleeding while on anticoagulation. BRIEF HOSPITAL COURSE: The patient is an 89-year-old male with recent diagnosis of left lower extremity DVT, currently taking Eliquis, presented to the hospital with gross hematuria. Please refer to the history and physical for further details. The patient was admitted to the hospital with a diagnosis of gross hematuria secondary to anticoagulation. He was evaluated by Urology, Dr. Pernell Davis, who recommended to discontinue anticoagulation. For this reason, IVC filter was placed by Dr. Biswas. Gross hematuria has resolved. He has been cleared by consultants for discharge. FINAL DIAGNOSES: 1. Gross hematuria due to chronic anticoagulation. 2. History of left lower extremity deep venous thrombosis. 3. Benign prostatic hypertrophy. 4. History of ureteric cancer. 5. Acute blood loss anemia from gross hematuria. 6. Chronic kidney disease, stage 2. 7. History of chronic anemia. PLAN: Plan was discussed with the patient in detail. He stated understanding. Job ID: [id number]
--- NOTE | 2019-08-10 13:50 | CON ---
DATE OF CONSULTATION: 08/10/2019 HISTORY OF PRESENT ILLNESS: This is an 89-year-old white male, whom I have known for the last 5 years. Initially started caring for him back in 2013 and at that point, he had a TURP done in another city and he has been having problems of hematuria from he ended up having a TURP done here for benign disease that was in August 2014 of 40 g and did well, did not have any troubles until just recently when he was found to have ureteral obstruction on a CAT scan. This was also associated with a 4 to 0.5 cm mass in the left iliac region. This proved to be a high-grade transitional cancer. He underwent some standard chemotherapy and was deemed inoperable at [facility] and now he is on a second round of chemotherapy with Dr. Olguin. He recently had a DVT and was placed on Eliquis and that was about 2 weeks ago and then 2 days ago, started having hematuria and he came in and was admitted yesterday. He had a vena cava filter placed. He was taken off the Eliquis and today, his urine has cleared. He has been voiding okay with few little clots initially, but now not at all. He also is having some increasing pain from his cancer and start him on some Tylenol No. 3. He seems to feel like that is helping. His vital signs here have been stable. His hemoglobin is 11.4 yesterday, it was 11.6 when he came in yesterday. His coags were slightly abnormal. Creatinine was normal. His bladder is not distended. Flanks are nontender. Abdomen is soft. IMPRESSION: 1. 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 2. Left ureteral obstruction from his transitional cell cancers, managed with a stent that will change periodically. 3. He has gross hematuria, probably related to this cancer and the stent as well as the Eliquis. 4. Deep venous thrombosis. 5. Recent inferior vena caval filter that has been placed. He does not have to be on the Eliquis. It certainly looks like it is reasonable for him to go home today with his urine now being clear off the Eliquis. He already has followup in my office. Job ID: [id number]
== END 2019-08-10 12:30 | disposition home or self-care (01) ==
LOC: ERS 07:47 → T4-A 12:49
PROVIDERS: ADMIT Internal Medicine; ATTEND Internal Medicine
PROC: 0JH Subcutaneous Tissue and Fascia, Insertion (ICD-10-PCS; principal; 2019-08-09)
DX: R31.0 Gross hematuria (principal); D68.32 Hemorrhagic disorder due to extrinsic circulating anticoagulants; T45.515A Adverse effect of anticoagulants, initial encounter; I82.411 Acute embolism and thrombosis of right femoral vein; D62 Acute posthemorrhagic anemia; N18.2 Chronic kidney disease, stage 2 (mild); D63.1 Anemia in chronic kidney disease; C66.9 Malignant neoplasm of unspecified ureter; N40.0 Benign prostatic hyperplasia without lower urinary tract symptoms; Z79.01 Long term (current) use of anticoagulants; Z79.82 Long term (current) use of aspirin; Z79.899 Other long term (current) drug therapy; Z87.891 Personal history of nicotine dependence; Z88.1 Allergy status to other antibiotic agents
CPT/HCPCS: 37191; 76942; 80053; 85014; 85018; 85025; 85610; 85730; 96360; 96361 ×2; 99284; C1769; C1880; G0378 ×3; 36415; 81003; 81015; J1644; J2001; Q9967

== ENCOUNTER 2019-08-12 11:57 | Observation (INO) | payer MEDICARE ==
[2019-08-12 12:41] LABS: #Eosinphils 0.2 thou/uL (0.0-0.7); #Lymphocytes 1.1 thou/uL (1.20-3.40); #Monocytes 0.8 thou/uL (0.11-0.59); #Neutrophils 4.7 thou/uL (1.40-6.50); %Basophils 0.2 % (0.0-1.0); %Eosinophils 2.4 % (0.0-10.0); %Lymphocytes 15.8 % (21.0-51.0); %Monocytes 11.6 % (0.0-10.0); %Neutrophils 69.9 % (42.0-75.0); Hemoglobin 11.9 g/dL (14.0-18.0); Mean Corpuscular HGB CONC 33.5 g/dL (32.0-36.0); Mean Corpuscular Hemoglobin 33.1 pg (27.0-31.0); Mean Platelet Volume 6.3 fL (7.4-10.4); Platelet Count 161 thou/uL (130-400); RBC Distribution Width 12.5 % (11.5-14.5); Red Blood Cell (RBC) Count 3.61 mill/uL (4.70-6.10); White Blood Cell (WBC) Count 6.7 thou/uL (4.8-10.8)
[2019-08-12 13:00] LABS: ALT (SGPT) 18 U/L (8-55); AST (SGOT) 22 U/L (5-34); Albumin 3.9 g/dL (3.4-4.8); Alkaline Phosphatase 110 U/L (40-150); Anion Gap 12 mmol/L (10-20); BUN (Urea Nitrogen) 12 mg/dL (8.4-25.7); Bilirubin, Total 0.3 mg/dL (0.2-1.2); Calc. Creatinine Clearance 0 mL/min (70-130); Calcium 9.2 mg/dL (7.8-10.44); Carbon Dioxide 25 mmol/L (23-31); Chloride 98 mmol/L (98-107); Estimated GFR-MDRD 57; Globulin 3.7 g/dL (2.4-3.5); Glucose 116 mg/dL (83-110); Potassium 4.4 mmol/L (3.5-5.1); Protein, Total 7.6 g/dL (5.8-8.1); Sodium 131 mmol/L (136-145)
[2019-08-12 14:13] LABS: INR-International Normal Ratio 1.1; PTT 29.7 SEC (22.9-36.1)
[2019-08-12 14:45] LABS: Nitrite Negative (Negative); Protein, Urine (Dipstick) > or equal to 300 mg/dL (Neg-Trace)
[2019-08-12 14:48] LABS: Clarity Cloudy (Clear)
[2019-08-12 14:50] LABS: Bilirubin Unable to Interpret (Negative); Blood, Urine Large (Negative); Glucose, Urine (Dipstick) Unable to Interpret mg/dL (Negative); Leukocyte Unable to Interpret (Negative); Urobilinogen UNABLE TO INTERPRET mg/dL (Less than 2)
[2019-08-12] MEDS ORDERED: Morphine 2 MG/ML SYRINGE ONE (14:55)
[2019-08-12 15:04] LABS: Bacteria/HPF None Seen HPF (None Seen); RBC/HPF Greater than 50 HPF (0-3); Squamous Epithelial 0-3 HPF (0-3)
[2019-08-12] MEDS ORDERED: Morphine 4 MG/ML VIAL SLOW IVP PRN (15:11)
[2019-08-12] MEDS ORDERED: HYDROcodone/Acetaminophen 5/325 mg Tablet PO PRN (15:11)
[2019-08-12] MEDS ORDERED: Morphine 2 MG/ML SYRINGE SLOW IVP PRN (15:11)
[2019-08-12] MEDS ORDERED: traMADol HCl 50 MG TAB PO PRN (15:17)
[2019-08-12] MEDS ORDERED: cefTRIAXone\\ROCEPHIN 2 GM VIAL ONE (15:40)
--- NOTE | 2019-08-12 15:42 | CON ---
DATE OF CONSULTATION: 08/12/[address] Pernell Davis, the patient's primary urologist. REASON FOR CONSULT: History of gross hematuria, urinary retention. HISTORY OF PRESENT ILLNESS: Mr. Acuña is a pleasant 89-year-old male, presents with his , daughter at bedside as he has 1-day history of gross hematuria, sensation of incomplete void. History operative records, and imaging reviewed. Patient with known history of BPH, previous TURP, left lower extremity DVT, previously on Eliquis. 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 He is followed locally by Dr. Olguin, currently on immunotherapy, also was deemed inoperable at [facility]. The patient was seen by Dr. Davis recently on August 10, 2019, as he presented with gross hematuria, with ureteral stent and Eliquis. He underwent IVC filter Eliquis was then subsequently discontinued, and his hematuria cleared and was discharged home. He states that his urine output has been clear, however, developed gross hematuria with passage of clots and they present today to the emergency room for assessment. He denies fever, dysuria, or chills. He also notes to have some constipation as he has been on Tylenol No. 3. In the emergency room, his vital signs are stable. He is afebrile, blood pressure 109/58, pulse 84, respiratory rate 18, and oxygen saturation 94% on room air. The patient is in mild distress, however, appears comfortable. He has voided about 50 mL of denice hematuria. I was called regarding his clinical history and gross hematuria. PAST MEDICAL HISTORY: Includes history of DVT, left high-grade ureteral TCC, history of BPH. PAST SURGICAL HISTORY: 1. Left hip replacement. 2. Right shoulder replacement. 3. Bilateral inguinal hernia. 4. Lumbar surgery. 5. History of TURP. 6. History of cysto, interval ureteral stent exchanges by Dr. Davis, most recent is on June 11, 2019, in which he underwent cystoscopy, left retrograde, left ureteral stent exchange. Operative records were reviewed, which demonstrated TUR changes of the prostate, no bladder lesions were seen, and stent was exchanged uneventfully. ALLERGIES: HE IS ALLERGIC TO CIPROFLOXACIN CAUSING RASH. HOME MEDICATIONS: Include; 1. Citracal. 2. [place]. 3. Tylenol No. 3. 4. Tramadol. REVIEW OF SYSTEMS: As above, otherwise noncontributory. SOCIAL HISTORY: Denies illicit drug use. Former smoker, but quit. Lives with his . Extended family at bedside. PHYSICAL EXAMINATION: GENERAL: The patient is in mild distress, cooperative to physical exam. HEENT: Grossly unremarkable. HEART: Regular rate. LUNGS: Clear. ABDOMEN: Soft. Mild suprapubic distention, however, no rigidity, no rebound. GENITOURINARY: Uncircumcised. Meatus is grossly unremarkable. Testes are descended. Right groin, Severance filter access has minimal ecchymosis with no hematoma. EXTREMITIES: Right lower extremity is grossly unremarkable. Left lower extremity demonstrates chronic edema consistent with prior history of DVT. Nontender. No significant erythema or tenderness of the calf. Bedside procedure, I informed the patient regarding indwelling Trujillo catheter and irrigation of clots at bedside. The penis was formally prepped and draped, a 22-[place] hematuria catheter was passed without difficulty. 30 mL of sterile water insufflated. There was immediate return of gross hematuria, denice , approximately 4 to 500 mL. Subsequently, I manually irrigated his bladder at bedside and about 80 to 100 mL of gross clots were evacuated. CBI tubing is attached and running at a [id number] rate, clear to light pink. He tolerated the procedure well. IMPRESSION AND PLAN: 1. Mr. Acuña is a pleasant 89-year-old male with history of deep venous thrombosis, recent Bakari filter, Eliquis discontinued due to recurrent gross hematuria. 2. History of left ureteral high-grade transitional cell carcinoma, deemed inoperable at [facility], receiving immunotherapy. 3. 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 Davis. Current admission due to recurrent gross hematuria. UA C and S has been obtained by the emergency room, I did place a Trujillo catheter three-way and he will need to be monitored on CBI. Monitor CBC, and follow up urine culture. Recommend broad-spectrum antibiotics until culture final. Hold all anticoagulation ,asa as he presents with gross hematuria with clot retention. will inform Dr. Davis tomorrow morning to resume his care. Job ID: [id number] [facility]
[2019-08-12] MEDS ORDERED: Benzonatate 100 MG CAP PO PRN (16:34)
[2019-08-12] MEDS ORDERED: hydrALAZINE 20 MG/ML VIAL SLOW IVP PRN (16:34)
[2019-08-12] MEDS ORDERED: Docusate 100 MG CAP PO PRN (16:34)
[2019-08-12] MEDS ORDERED: diphenhydrAMINE 25 MG CAP PO PRN (16:34)
[2019-08-12] MEDS ORDERED: Magnesium Citrate 300 ML BOT PO PRN (16:35)
[2019-08-12] MEDS: Sodium Chloride 0.9% 1,000 ML IV SCH (17:10)
[2019-08-12 17:29] VITALS: BMI 29.9
[2019-08-12] MEDS: Hyoscyamine Sulfate SL 0.125 mg Tablet SL SCH ×2 (18:20→23:26)
[2019-08-12] MEDS: cefTRIAXone\\ROCEPHIN 1 GM in Sodium Chloride 0.9% 100 ML IVPB SCH (18:20)
[2019-08-12] MEDS: HYDROcodone/Acetaminophen 5/325 mg Tablet PO PRN ×2 (18:24→22:26)
--- NOTE | 2019-08-12 20:19 | HP ---
CHIEF COMPLAINT: Blood in urine. HISTORY OF PRESENT ILLNESS: Mr. Acuña is a very pleasant 89-year-old white male with a past medical history of high-grade ureteral TCC, who is currently on immunotherapy by Dr. Olguin. The patient has been previously seen at [facility] and was determined to be inoperable. The patient in the recent past was diagnosed with left lower extremity DVT and was placed on Eliquis. Subsequent to that, the patient had episode of hematuria and presented to the hospital. Because of the patient's inability to be on oral anticoagulation secondary to hematuria, an IVC filter was placed, and the patient was stopped on oral anticoagulation. Since that time, the patient has been having no problems with bleeding until today. The patient returned to [facility] now with gross hematuria and urinary retention. The patient was seen by Urology in the emergency department, please see full consultation notes for details. Urology was able to successfully place a Trujillo catheter and a continuous bladder irrigation was initiated. The patient was admitted to medical unit for further evaluation and treatment. PAST MEDICAL HISTORY: 1. Left lower extremity DVT, who is unable to be anticoagulated secondary to hematuria, and has subsequently undergone IVC filter placement. 2. Left high-grade ureteral TCC. 3. BPH. 4. Constipation. 5. Osteoarthritis. PAST SURGICAL HISTORY: 1. Left hip replacement. 2. Right shoulder replacement. 3. Bilateral inguinal hernia repair. 4. Lumbar surgery. 5. History of transurethral resection of the prostate. 6. History of cystoscopy. HOME MEDICATIONS: 1. Citracal. 2. [place]. 3. Tylenol No. 3. 4. Tramadol. 5. Docusate. 6. Magnesium citrate. ALLERGIES: CIPROFLOXACIN - CAUSES A RASH. REVIEW OF SYSTEMS: A 10-point review of systems was performed and negative aside from what mentioned in history of present illness. SOCIAL HISTORY: The patient is a former smoker, denies illicit drug use, denies daily alcohol use. The patient lives with his at home. PHYSICAL EXAMINATION: VITAL SIGNS: Blood pressure 109/58, pulse 84, respirations 18, and O2 saturation 94% on room air. HEENT: Head is normocephalic and atraumatic. Pupils are equally round and reactive to light and accommodation. There are no appreciated exudates or erythema of the tonsils. GENERAL: The patient is well developed and well nourished. He is in no acute distress. The patient is cooperative with history and physical. CARDIAC: S1 and S2 present. No appreciated murmurs, rubs or gallops. LUNGS: Clear to auscultation bilaterally without rales, rhonchi, or wheezing. ABDOMEN: Soft, nontender, and nondistended without focal guarding or rigidity. No appreciated abdominal masses or bruit. MUSCULOSKELETAL: Adequate alignment of spine. Range of motion of the spine intact and extremities. No joint erythema or tenderness. BACK: The spine reveals a normal spinal curvature with postsurgical scarring. There is symmetry of the spinal muscles without significant tenderness. EXTREMITIES: No significant deformity or joint abnormality. No edema. Lower extremity, +1 edema in bilateral lower extremities. NEUROLOGIC: Cranial nerves 2 through 12 are grossly intact. Strength and sensation are symmetric and intact. SKIN: Skin is normal color, texture and turgor. No lesions or eruptions. PSYCHIATRIC: The mental examination revealed that the patient is oriented to person, place, and time. The patient is able to demonstrate good judgment and reason. Without hallucinations, abnormal affect or abnormal behaviors. LABORATORY DATA: WBC 6.7, RBC 3.61, hemoglobin 11.9, hematocrit 35.7, and platelets 161. PT 14.0, INR 1.1, and PTT 29.7. Sodium 131, potassium 4.4, chloride 9.8, carbon dioxide 25, anion gap of 12, BUN 12, and creatinine 1.2. Estimated GFR 57. Glucose 116. Calcium 9.2. Total bilirubin 0.3, AST 22, ALT 18, and alkaline phosphatase 110. Serum total protein 7.6 and albumin 3.9. Urinalysis, urine color red, urine clarity cloudy, urine pH 6.8, urine specific gravity 1.014, urine protein greater than 300 urine glucose unable to interpret, urine ketones unable to interpret, urine blood large amount, urine nitrite negative, urine bilirubin unable to interpret, leukocyte esterase unable to interpret, rbc's greater than 50, wbc's 4 to 6, squamous epithelial cells 0 to 3. Bacteria: None seen. ASSESSMENT/PLAN: 1. Devonte hematuria with bladder outlet obstruction. The patient has been seen by Urology and has had a Trujillo catheter placed with appropriate diameter to perform continuous bladder irrigation. The patient's urine was now running clear with a faint pink tinge to it. 2. Ureteral transitional cell carcinoma, who is currently on immunotherapy, under the care of Dr. Olguin. The patient was determined to be inoperable at [facility]. 3. Flank pain. 4. Osteoarthritis. 5. Constipation. 6. Normocytic anemia secondary to acute blood loss - mild. Job ID: [id number]
[2019-08-12] MEDS: Docusate 100 MG CAP PO SCH (20:29)
[2019-08-13] MEDS: Sodium Chloride 0.9% 1,000 ML IV SCH ×2 (03:15→12:31)
[2019-08-13] MEDS: HYDROcodone/Acetaminophen 5/325 mg Tablet PO PRN (05:27)
[2019-08-13] MEDS: Hyoscyamine Sulfate SL 0.125 mg Tablet SL SCH ×4 (05:28→23:42)
[2019-08-13 08:16] LABS: #Eosinphils 0.1 thou/uL (0.0-0.7); #Lymphocytes 1.1 thou/uL (1.20-3.40); #Monocytes 0.7 thou/uL (0.11-0.59); #Neutrophils 4.5 thou/uL (1.40-6.50); %Basophils 0.4 % (0.0-1.0); %Eosinophils 1.4 % (0.0-10.0); %Monocytes 11.3 % (0.0-10.0); %Neutrophils 69.9 % (42.0-75.0); Mean Corpuscular HGB CONC 33.3 g/dL (32.0-36.0); Mean Corpuscular Hemoglobin 32.8 pg (27.0-31.0); Mean Corpuscular Volume 98.3 fL (78.0-98.0); Mean Platelet Volume 6.9 fL (7.4-10.4); Platelet Count 151 thou/uL (130-400); RBC Distribution Width 12.7 % (11.5-14.5); Red Blood Cell (RBC) Count 3.37 mill/uL (4.70-6.10); White Blood Cell (WBC) Count 6.5 thou/uL (4.8-10.8)
[2019-08-13] MEDS: Cyanocobalamin (Vitamin B-12) 1,000 MCG TAB PO SCH (08:51)
[2019-08-13] MEDS: Vit A,C & E/Lutein/Minerals Tablet PO SCH (08:52)
[2019-08-13] MEDS: Docusate 100 MG CAP PO SCH ×2 (08:52→20:46)
[2019-08-13] MEDS ORDERED: Prevnar 13-Val Conj/PF 0.5 ML SYRINGE IM ONE (09:00)
--- NOTE | 2019-08-13 15:28 | PDOC.HOSPP ---
- Subjective Subjective: Seen and examined. Diaz catheter training light yellow urine without blood- tinged. Patient's only complaint is constipation. Patient denies pain. Breathing well on room air. Patient is very hard of hearing a baseline and his hearing aids have started acting up so he has not worn them. - Objective Vital Signs & Weight: Vital Signs (12 hours) Temp Pulse Resp BP Pulse Ox 08/13/19 11:19 97.8 F 69 16 134/72 95 08/13/19 08:41 98.6 F 59 L 18 109/66 93 L 08/13/19 04:00 98 F 58 L 18 119/56 L 95 Weight Weight 214 lb 15.211 oz I&O: 08/12/19 08/13/19 08/14/19 06:59 06:59 06:59 Intake Total 2074 Output Total 5743 600 Balance -3676 -600 Result Diagrams: 08/13/19 07:53 08/12/19 12:31 Hospitalist ROS - Review of Systems All other systems reviewed; all pertinent +/- noted in HPI/Subj - Medication Medications: Active Medications Generic Name Dose Route Start Last Admin Trade Name Freq PRN Reason Stop Dose Admin Hydrocodone Bitart/Acetaminophen 2 tab 08/12/19 15:11 08/13/19 05:27 [place] 5/325 PO 2 tab Q4H PRN Administration Severe Pain (7-10) Cyanocobalamin 500 mcg 08/13/19 09:00 08/13/19 08:51 Vitamin B-12 PO 500 mcg DAILY MARISOL Administration Docusate Sodium 100 mg 08/12/19 21:00 08/13/19 08:52 Colace PO 100 mg BID MARISOL Administration Hyoscyamine Sulfate 0.25 mg 08/12/19 18:00 08/13/19 12:29 Levsin Sl SL 0.25 mg Q6HR MARISOL Administration Ceftriaxone Sodium 1 gm/ 100 mls @ 200 mls/hr 08/12/19 16:00 08/12/19 18:20 Sodium Chloride IVPB Not Given Q24HR MARISOL Sodium Chloride 1,000 mls @ 100 mls/hr 08/12/19 15:15 08/13/19 12:31 Normal Saline 0.9% IV 1,000 mls .Q10H MARISOL Administration Magnesium Citrate 300 ml 08/12/19 16:35 08/13/19 14:27 Citrate Of Magnesia 300 Ml Bot PO 300 ml DAILYPRN PRN Administration Constipation Multivitamins/Minerals 1 tab 08/13/19 09:00 08/13/19 08:52 Ocuvite With Lutein PO 1 tab DAILY MARISOL Administration - Exam General Appearance: NAD, awake alert Eye: anicteric sclera ENT: no oropharyngeal lesions, moist mucosa Neck: supple, symmetric Heart: no murmur, no gallops, no rubs Respiratory: CTAB, no wheezes, no rales, no ronchi Gastrointestinal: non-tender, non-distended, normal bowel sounds, no palpable masses, no guarding, no rigidity Gastrointestinal - other findings: : diaz cath with light urine Extremities: no edema Skin: no lesions, no rashes Neurological: cranial nerve grossly intact, normal sensation to touch Musculoskeletal: no muscle wasting Psychiatric: normal affect, A&O x 3 Hosp A/P (1) Ureter colic Code(s): N23 - UNSPECIFIED RENAL COLIC Status: Acute (2) Ureter cancer Code(s): C66.9 - MALIGNANT NEOPLASM OF UNSPECIFIED URETER Status: Acute (3) Gross hematuria Status: Acute - Plan Plan: medical/surgical unit urology consultation, recommendations appreciated further plan of care per urology patient with Diaz catheter which is now training light yellow urine without pink or blood-tinged IV fluids, will discontinue at this time empiric antibiotics PRN medications for pain and discomfort PRN medications for blood pressure if needed
[2019-08-13] MEDS: cefTRIAXone\\ROCEPHIN 1 GM in Sodium Chloride 0.9% 100 ML IVPB SCH (16:36)
[2019-08-14] MEDS: HYDROcodone/Acetaminophen 5/325 mg Tablet PO PRN (01:39)
[2019-08-14 04:30] LABS: #Basophils 0.1 thou/uL (0.0-0.2); #Eosinphils 0.1 thou/uL (0.0-0.7); #Lymphocytes 1.9 thou/uL (1.20-3.40); #Monocytes 0.9 thou/uL (0.11-0.59); #Neutrophils 5.1 thou/uL (1.40-6.50); %Basophils 0.7 % (0.0-1.0); %Eosinophils 0.8 % (0.0-10.0); %Lymphocytes 23.3 % (21.0-51.0); %Monocytes 11.5 % (0.0-10.0); %Neutrophils 63.6 % (42.0-75.0); Mean Corpuscular HGB CONC 33.5 g/dL (32.0-36.0); Mean Corpuscular Hemoglobin 32.8 pg (27.0-31.0); Mean Corpuscular Volume 98.1 fL (78.0-98.0); Mean Platelet Volume 6.3 fL (7.4-10.4); Platelet Count 151 thou/uL (130-400); RBC Distribution Width 12.7 % (11.5-14.5); Red Blood Cell (RBC) Count 3.36 mill/uL (4.70-6.10)
[2019-08-14] MEDS: Hyoscyamine Sulfate SL 0.125 mg Tablet SL SCH (06:20)
[2019-08-14] MEDS: Cyanocobalamin (Vitamin B-12) 1,000 MCG TAB PO SCH (08:28)
[2019-08-14] MEDS: Vit A,C & E/Lutein/Minerals Tablet PO SCH (08:28)
[2019-08-14] MEDS: Docusate 100 MG CAP PO SCH (08:29)
[2019-08-14 11:00] VITALS: BP 158/74; TEMP 97.4
--- NOTE | 2019-08-14 14:49 | DIS ---
DATE OF ADMISSION: 08/12/2019 DATE OF DISCHARGE: 08/14/2019 REASON FOR HOSPITALIZATION: Inability to void urine and hematuria. SPECIFIC FINDINGS: The patient was found to have denice hematuria and required continuous bladder irrigation therapy. PROCEDURES PERFORMED AND TREATMENTS RENDERED: The patient was seen by Urology, please see full consultation and progress notes for details. Neurology recommending continuous bladder irrigation, which resulted in clearing of the urine. The patient then had Trujillo catheter removed and was able to void without difficulties afterwards. CONDITION ON DISCHARGE: Stable. SPECIFIC INSTRUCTIONS FOR THE PATIENT/FAMILY: 1. The patient is recommended to follow up with Urology in the outpatient clinic in the next 5 to 7 days. 2. The patient is recommended to follow up with primary care physician in the next 5 to 7 days. 3. The patient is recommended to take all medications as directed, to be re-evaluated by primary care physician and urologist. 4. The patient is recommended to return to acute care hospital immediately if signs or symptoms return, worsen, or any other new symptoms occur. DISCHARGE MEDICATIONS: 1. Tramadol 50 mg one tablet p.o. four times per day p.r.n. pain. 2. Multivitamin. 3. Vitamin B12 of 500 mcg one tablet p.o. daily. 4. Aspirin 81 mg one tablet p.o. daily. 5. Magnesium citrate 300 mL p.o. daily p.r.n. constipation. 6. Docusate 100 mg one tablet p.o. b.i.d. HOSPITAL COURSE: Mr. Acuña is a very pleasant 89-year-old gentleman with past medical history of ureteral TCC, who has been evaluated at [facility] and was determined to not be a candidate for surgical correction. The patient is currently on immunotherapies by oncologist, Dr. Olguin. The patient with a recent DVT in the lower extremity, was started on Eliquis therapy. The patient subsequently had hematuria and this medication was stopped. The patient then had IVC filter placement. The patient again returns to [facility] the [facility] on 08/14/2019, with hematuria. The patient was seen by Urology, please see full consultation and progress notes for details. Urology recommending continuous bladder irrigation, empiric antibiotics, and IV fluid resuscitation. With maximum medical therapy by Urology, the patient's CBI cleared and he was successfully placed on a voiding challenge. The Trujillo catheter was removed and he was able to void afterwards without bleeding or other problems. The patient was recommended safe for discharge by Urology with close followup in the outpatient setting. The patient is recommended to follow up with Urology and primary care physician in the next 5 to 7 days. The patient is recommended to take all medications as directed. The patient recommended to return to acute care hospital immediately if signs or symptoms return, worsen, or any other new symptoms occur. Greater than 34 minutes spent coordinating care and discharge process for this patient. Job ID: [id number]
== END 2019-08-14 11:13 | disposition home or self-care (01) ==
LOC: ERS 11:57 → SURG B 17:10
PROVIDERS: ADMIT Internal Medicine; ATTEND Internal Medicine
DX: R31.0 Gross hematuria (principal); K59.00 Constipation, unspecified; C66.2 Malignant neoplasm of left ureter; R33.9 Retention of urine, unspecified; N13.39 Other hydronephrosis; N23 Unspecified renal colic; M19.90 Unspecified osteoarthritis, unspecified site; D50.0 Iron deficiency anemia secondary to blood loss (chronic); N32.0 Bladder-neck obstruction; Z86.718 Personal history of other venous thrombosis and embolism; Z87.891 Personal history of nicotine dependence; Z79.899 Other long term (current) drug therapy; Z88.1 Allergy status to other antibiotic agents; Z90.79 Acquired absence of other genital organ(s)
CPT/HCPCS: 80053; 85025 ×3; 85610; 85730; 96361 ×2; 96365; 96375; 99284; G0378 ×4; 36415; 81003; 81015; J0696; J2270; J3490

== ENCOUNTER 2019-09-03 07:48 | Day surgery (SDC) | payer MEDICARE ==
[2019-09-03 09:01] LABS: Hemoglobin 10.2 g/dL (14.0-18.0); Mean Corpuscular HGB CONC 32.9 g/dL (32.0-36.0); Mean Corpuscular Hemoglobin 31.6 pg (27.0-31.0); Mean Corpuscular Volume 96.1 fL (78.0-98.0); Mean Platelet Volume 6.8 fL (7.4-10.4); Platelet Count 154 thou/uL (130-400); RBC Distribution Width 13.2 % (11.5-14.5); Red Blood Cell (RBC) Count 3.22 mill/uL (4.70-6.10); White Blood Cell (WBC) Count 6.8 thou/uL (4.8-10.8)
[2019-09-03 09:05] LABS: INR-International Normal Ratio 1.1; PTT 34.8 SEC (22.9-36.1); Prothrombin Time 14.4 SEC (12.0-14.7)
[2019-09-03] MEDS ORDERED: Fentanyl 100 MCG/2 ML VIAL ONE (09:44)
[2019-09-03] MEDS ORDERED: Iothalamate Meglumine 60% 50 ML VIAL FS ONE (10:30)
[2019-09-03] MEDS ORDERED: PROPOFOL 200 MG/20 ML VIAL ONE (13:30)
[2019-09-03] MEDS ORDERED: Lidocaine 1% PF 5 ML VIAL ONE (13:30)
[2019-09-03] MEDS ORDERED: ePHEDrine 50 MG/ML VIAL ONE (13:30)
--- NOTE | 2019-09-03 15:30 | OP ---
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 PROCEDURES PERFORMED: Cystoscopy, left stent exchange, transurethral resection of bladder tumor. ANESTHESIA: General. ESTIMATED BLOOD LOSS: Minimal. DRAINS: 6 x 26 Polaris double-J stent without a string attached. FINDINGS: It appears that the tumor coming out of the left ureteral orifice is more extensive. It was right around the left ureteral orifice now. It seems to be coming across at least mcfp across the trigone and down towards the bladder neck, very friable, has a lot of friable and necrotic tissue on the surface of it, which we did resect off just the surface tissue in order to be able to cauterize for better hemostasis. There is very hydronephrotic ureter even with the stent in, had 120 mL of urine obtained from the Pollack catheter when it was placed into the area of the renal pelvis. DESCRIPTION OF PROCEDURE: After obtained written and verbal consent from the patient, after receiving IV antibiotics, he was taken to the operating suite. He was placed in the supine position on the treatment table. PlexiPulses were placed on his lower extremities and turned on. He was given a general anesthetic and oral obturator intubation. He was placed in the dorsal lithotomy position and sterilely prepped and draped. Cystoscopy was performed with a 22-Maltese sheath. This was well lubricated and passed under direct vision through the male urethra and into the urinary bladder with aid of a 30-degree lens and video camera and monitor. The bladder was filled and emptied number of times and examined both the 30-degree and the 70-degree lens with the findings as above. We went ahead at this point and grasped the distal end of the double-J stent, brought out through the urethral meatus, but a 0.038 guidewire across this and up in the region of renal pelvis and removed the stent over the guidewire. Pollack catheter was then advanced over the open-ended catheter up to the area of the renal pelvis and the wire was removed. We drained 120 mL of urine from this. We had injected about 30 mL of some contrast that filled out, has dilated collecting system, so we drained the amount of urine in addition to the amount of the contrast that we placed. At this point, the guidewires were placed, the Pollack catheter was removed and the stent was placed and pushed up into position with aid of a pusher, so its proximal end was up in the renal pelvis and its distal end in the bladder. He had a lot of oozing and bleeding from the friable tissue and regrowth of tissue and we went ahead and just scraped this superficial, necrotic, and friable tissue off and then re-cauterized for hemostasis. This was sent for pathology. We went ahead without a Trujillo catheter and make sure he can urinate in recovery room in the day stay before he goes home. If he can, we will put a catheter in there. At this point, he was awakened and extubated and taken by macrina to recovery room. Job ID: [id number]
--- NOTE | 2019-09-03 17:35 | RAD ---
RETROGRADE IVP: Series of 14 images are presented from the OR. Indications: Stent placement. Intraoperative imaging. FINDINGS: Initial imaging shows catheter placement on the left. There is opacification of the left collecting s tructures which shows dilatation proximally. Final image shows placement of a double pigtail left ure teral stent. POS: [facility]
--- NOTE | 2019-09-07 06:02 | PQF ---
[facility] POST DISCHARGE CLINICAL DOCUMENTATION IMPROVEMENT CLARIFICATION FORM l Todays Date: 09/06/19 l Patients Name YOON RAMESH l l Admit Date 09/03/19 l Disch Date 09/03/19 Roof Slater Name Se Ames Email: [email or web address] Cell: [phone] To be completed by Roof Slater: Present Clinical Indicators - Signs / Symptoms Results and Location in Medical Record [ ] Documentation of: [ ] [ ] Documentation of: [ ] [ ] Documentation of: [ ] [ ] Documentation of: [ ] [ ] Risks [ ] [ ] [ ] Treatment [ ] High Grade Urothelial Carcinoma of Bladder Query for size of resected bladder tumor [ ] [ ] To be completed by Physician: NAYELI GARRISON The documentation in this patients record requires clarification to ensure coding compliance and accuracy. Check the appropriate box and include in your discharge summary. [ ] [ ] [ ] [ ] Please check this box if this does not apply to this patient [ ] Unable to determine [ ] Other diagnosis: Review the following information and exercise your independent professional judgment in responding to the clarification. Based upon the clinical findings, risk factors, and treatment, please clarify if you are treating one of the above probable or suspected diagnoses. Physician Signature: Date Time MTDD
== END 2019-09-03 14:45 | disposition home or self-care (01) ==
LOC: SDC 07:48
PROVIDERS: ATTEND Urology
PROC: 0T778DZ Dilation of Left Ureter with Intraluminal Device, Via Natural or Artificial Opening Endoscopic (ICD-10-PCS; principal; 2019-09-03)
PROC: 0TP98DZ Removal of Intraluminal Device from Ureter, Via Natural or Artificial Opening Endoscopic (ICD-10-PCS; 2019-09-03)
DX: C67.8 Malignant neoplasm of overlapping sites of bladder (principal); C66.2 Malignant neoplasm of left ureter; N13.1 Hydronephrosis with ureteral stricture, not elsewhere classified; M19.90 Unspecified osteoarthritis, unspecified site; G89.29 Other chronic pain; M54.9 Dorsalgia, unspecified; Z87.891 Personal history of nicotine dependence; Z79.899 Other long term (current) drug therapy; Z88.1 Allergy status to other antibiotic agents
CPT/HCPCS: 52332; 74420; 85027; 85610; 85730; 88307; 88342; C1758; J0690; J2001; J2704; J3010; J3490

== ENCOUNTER 2019-09-04 07:47 | Outpatient (CLI) | payer MEDICARE ==
--- NOTE | 2019-09-04 09:16 | CT ---
CT ABDOMEN WITH CONTRAST CT PELVIS WITH CONTRAST: DATE: 09/04/2019 HISTORY: 89-year-old male with cancer of left ureter ICD-10: C 66.2 evaluate response to chemotherapy. COMPARISON: 05/03/2019 TECHNIQUE: IV injection of iodinated contrast media: administered. Oral contrast media:Administered FINDINGS: There has been dramatic interval growth in the solid tumor mass throughout the lower half to two thir ds of the left ureter, currently measuring 10.5 cm in craniocaudal extent, from the L5 level to the left UVJ. At the upper sacral level, the transverse and AP dimensions are approximately 5 x 5.5 cm, w here it surrounds the left external iliac artery and internal iliac artery, as well as the corresponding iliac veins. It focally invades and destroys a portion of the S1 sacral vertebral body, where the destructive osseous lesion measures approximately 2 x 3.5 cm. At the distal ureter including ureterovesical junction, the tumor mass measures approximately 3.5 x 4 x 4.5 cm. The tumor has low central attenuation suggestive of necrosis. The left ureteral stent remains, with lower curl within the lumen of the urinary bladder, and upper c url within the left renal collecting system. Despite this, there is now a new finding of severe dilation of left extrarenal pelvis and all of the left renal calyces. There is mild left perinephric fat stranding representing edema. The urinary bladder is distended. There is an air-fluid level at the nondependent portion of the urinary bladder. There is another new finding of moderate dilation of right renal collecting system and mild right hyd roureter. Left kidney volume is small. Left renal parenchyma is thin, as was the case previously. IVC filter noted. Several tiny hypodensities scattered in the liver are too small to definitively quincy racterize. They are favored to be cysts. There is a new finding of an approximately 3 x 3.5 x 2.5 cm area of moderately low attenuation located at the posterior subcapsular edge of the right lobe of the liver in hepatic segment 7. This is favored to represent a regional perfusion abnormality rather than metastasis. No adrenal nodule. Unremarkable pancreas and spleen. Normal retrocecal append ix. No colonic diverticulitis. No pleural effusion, pneumoperitoneum, or ascites. IMPRESSION: 1) dramatic interval growth of the neoplastic malignant tumor mass involving the lower half to two th irds of the left ureter. 2) interval development of severe left hydronephrosis despite presence of left ureteral stent. 3) distended urinary bladder. 4) air within the urinary bladder lumen. It is presumed that the patient has had recent bladder joshua terization to cause this. If not, the possibility of infection should be raised. 5) the ureteral tumor surrounds of the left iliac arteries and veins. 6) the ureteral tumor directly invades and destroys a portion of the S1 sacral vertebral body. 7) mild to moderate right hydronephrosis and mild right hydroureter.. This is presumably due to the d istended urinary bladder.
== END 2019-09-04 07:48 | disposition home or self-care (01) ==
LOC: BICCT 07:47
PROVIDERS: ATTEND Internal Medicine Hematology & Oncology
DX: C66.2 Malignant neoplasm of left ureter (principal); N13.30 Unspecified hydronephrosis; N32.89 Other specified disorders of bladder; N13.4 Hydroureter
CPT/HCPCS: 74177

== ENCOUNTER 2019-09-30 23:40 | Emergency (ER) | payer MEDICARE ==
[2019-10-01 00:13] LABS: #Basophils 0.1 thou/uL (0.0-0.2); #Lymphocytes 0.2 thou/uL (1.20-3.40); #Monocytes 0.3 thou/uL (0.11-0.59); #Neutrophils 8.3 thou/uL (1.40-6.50); %Basophils 1.4 % (0.0-1.0); %Eosinophils 0.1 % (0.0-10.0); %Lymphocytes 2.2 % (21.0-51.0); %Monocytes 3.6 % (0.0-10.0); %Neutrophils 92.7 % (42.0-75.0); Hemoglobin 8.1 g/dL (14.0-18.0); Mean Corpuscular HGB CONC 32.3 g/dL (32.0-36.0); Mean Corpuscular Hemoglobin 31.1 pg (27.0-31.0); Mean Corpuscular Volume 96.6 fL (78.0-98.0); Mean Platelet Volume 7.9 fL (7.4-10.4); Platelet Count 124 thou/uL (130-400); RBC Distribution Width 13.8 % (11.5-14.5); Red Blood Cell (RBC) Count 2.59 mill/uL (4.70-6.10); White Blood Cell (WBC) Count 8.9 thou/uL (4.8-10.8)
[2019-10-01 00:35] LABS: ALT (SGPT) 23 U/L (8-55); AST (SGOT) 22 U/L (5-34); Albumin 3.4 g/dL (3.4-4.8); Alkaline Phosphatase 92 U/L (40-110); Anion Gap 17 mmol/L (10-20); BUN (Urea Nitrogen) 20 mg/dL (8.4-25.7); Bilirubin, Total 0.8 mg/dL (0.2-1.2); Calc. Creatinine Clearance 0 mL/min (70-130); Calcium 8.5 mg/dL (7.8-10.44); Carbon Dioxide 19 mmol/L (23-31); Chloride 101 mmol/L (98-107); Estimated GFR-MDRD 51; Globulin 3.1 g/dL (2.4-3.5); Glucose 130 mg/dL (83-110); Potassium 3.8 mmol/L (3.5-5.1); Protein, Total 6.5 g/dL (5.8-8.1); Sodium 133 mmol/L (136-145)
[2019-10-01 01:32] LABS: Bacteria/HPF None Seen HPF (None Seen); Bilirubin Negative (Negative); Blood, Urine 1+ (Negative); Clarity Clear (Clear); Glucose, Urine (Dipstick) Normal (Negative); Leukocyte Negative Leu/uL (Negative); Nitrite Negative (Negative); Protein, Urine (Dipstick) 50 mg/dL (Neg-Trace); Squamous Epithelial 0-3 HPF (0-3); Urobilinogen Normal mg/dL (Less than 2)
== END 2019-10-01 03:55 | disposition home or self-care (01) ==
LOC: ERS 23:40
DX: R50.9 Fever, unspecified (principal); Z87.891 Personal history of nicotine dependence; Z79.891 Long term (current) use of opiate analgesic; Z79.899 Other long term (current) drug therapy
CPT/HCPCS: 36415; 80053; 81003; 81015; 83605; 85025; 87040; 87086; 87804; 99284

== ENCOUNTER 2019-10-07 17:10 | Inpatient (IN) | payer MEDICARE ==
[~2019-10-07 17:10] MED LIST: Iopamidol-370 76% 500 ML 1 ML ONE
[2019-10-07 18:03] LABS: #Lymphocytes 0.4 thou/uL (1.20-3.40); #Monocytes 0.2 thou/uL (0.11-0.59); #Neutrophils 6.2 thou/uL (1.40-6.50); %Basophils 0.1 % (0.0-1.0); %Eosinophils 0.4 % (0.0-10.0); %Lymphocytes 5.3 % (21.0-51.0); %Monocytes 3.2 % (0.0-10.0); Hemoglobin 8.1 g/dL (14.0-18.0); Mean Corpuscular HGB CONC 32.6 g/dL (32.0-36.0); Mean Corpuscular Hemoglobin 30.9 pg (27.0-31.0); Mean Platelet Volume 8.6 fL (7.4-10.4); Platelet Count 84 thou/uL (130-400); RBC Distribution Width 14.4 % (11.5-14.5); Red Blood Cell (RBC) Count 2.61 mill/uL (4.70-6.10); White Blood Cell (WBC) Count 6.8 thou/uL (4.8-10.8)
[2019-10-07 18:20] LABS: ALT (SGPT) 58 U/L (8-55); AST (SGOT) 47 U/L (5-34); Albumin 3.6 g/dL (3.4-4.8); Alkaline Phosphatase 91 U/L (40-110); Anion Gap 16 mmol/L (10-20); BUN (Urea Nitrogen) 23 mg/dL (8.4-25.7); Bilirubin, Total 0.6 mg/dL (0.2-1.2); CK (CPK) 32 U/L (30-200); Calc. Creatinine Clearance 0 mL/min (70-130); Calcium 8.6 mg/dL (7.8-10.44); Carbon Dioxide 22 mmol/L (23-31); Chloride 96 mmol/L (98-107); Estimated GFR-MDRD 52; Glucose 111 mg/dL (83-110); Lipase 72 U/L (8-78); MDiff Complete? YES; Magnesium 1.8 mg/dL (1.6-2.6); Platelet Morphology Comment Appears Decreased; Polychromasia SLIGHT = 2-3 cells (100X) (0-2/hpf); Potassium 4.5 mmol/L (3.5-5.1); Protein, Total 6.6 g/dL (5.8-8.1); Schistocytes SLIGHT = 2-5 cells (100X) (0-1/hpf); Sodium 129 mmol/L (136-145)
[2019-10-07 18:42] LABS: CKMB 0.7 ng/mL (0-6.6)
--- NOTE | 2019-10-07 18:45 | RAD ---
CHEST ONE VIEW: Comparison: 01-30-19 History: Pain. FINDINGS: Stable right sided Mediport catheter. Stable calcified AP window lymph node. Normal cardiac silhouett e. Unremarkable aorta and pulmonary vessels. Costophrenic angles are clear. Lung volumes are diminished, likely due to a poor inspiratory effort. Right humeral prosthesis is noted. IMPRESSION: No acute cardiopulmonary process. POS: [facility]
[2019-10-07] MEDS ORDERED: Fentanyl 100 MCG/2 ML VIAL ONE (19:11)
[2019-10-07 19:29] LABS: Bacteria/HPF None Seen HPF (None Seen); Bilirubin Negative (Negative); Blood, Urine 2+ (Negative); Clarity Clear (Clear); Glucose, Urine (Dipstick) Normal (Negative); Leukocyte 75 Leu/uL (Negative); Nitrite Negative (Negative); Protein, Urine (Dipstick) 50 mg/dL (Neg-Trace); RBC/HPF 21-50 HPF (0-3); Squamous Epithelial 0-3 HPF (0-3); Urobilinogen Normal mg/dL (Less than 2)
[2019-10-07] MEDS ORDERED: cefTRIAXone\\ROCEPHIN 1 GM VIAL ONE (20:10)
--- NOTE | 2019-10-07 21:04 | CT ---
CT BRAIN WITHOUT CONTRAST: History: Altered mental status. FINDINGS: There are changes of cortical atrophy and chronic small vessel ischemic disease. The ventricular size is appropriate the basilar cisterns are patent. No evidence of acute infarct, hemorrhage, midline shift, or abnormal extraaxial fluid collections are seen. The bony calvarium is intact. Visualized paranasal sinuses and mastoid air cells are well aera abimbola. IMPRESSION: No CT evidence of acute intracranial process. POS: [facility]
--- NOTE | 2019-10-07 21:52 | CT ---
ABDOMEN CT WITH CONTRAST PELVIC CT WITH CONTRAST: Comparison: 09-04-19, 05-03-19 History: Abdominal pain. Uterine cancer. FINDINGS: ABDOMEN CT: The lung bases are clear. Normal heart size. Normal caliber aorta. Appropriate enhancement of the solid organs. Stable subcentimeter hypodensities in the liver, too sma ll to characterize. Sludge and small stones in the lumen of the gallbladder. No gastrohepatic, retrocrural, or periportal lymphadenopathy. Stranding of the abdominal mesentery, unchanged. IVC filter is noted. Limited evaluation of the alimentary canal by lack of oral contrast. No evidence of bowel obstruction . There does appear to be mucosal thickening and bowel wall thickening involving the distal descendin g colon and sigmoid colon. Redemonstration of severe bilateral hydronephrosis. Delayed nephrogram phase with regards to the left kidney. There is an appropriately positioned left ureteral stent. There is severe bilateral hydronep hrosis. The degree of dilatation of the left intrarenal collecting and extrarenal collecting system i s stable. There is mild interval progression of the overall degree of hydronephrosis and hydroureter on the right side. CT PELVIS: Abnormal attenuation along the posterior left aspect of the urinary bladder. There is abnormal attenu ation near the right ureterovesicular junction. Abnormal soft tissue density is noted in the posterio r left pelvis, anterior to the S1 vertebral body which currently measures 5.5 x 6.1 cm. Previously me asuring 4.8 x 5.1 cm. Stable stranding of the soft tissue structures. There is evidence of osseous metastases involving the sacrum. IMPRESSION: 1. Stable position of the left sided ureteral stent. Stable left sided hydronephrosis. 2. Severe right sided hydronephrosis which has slightly progressed when compared to the previous exam ination. 3. Interval increase in size of a neoplastic tumor in the lower left half of the pelvis. 4. Invasion of the urinary bladder with tumor, similar to the previous examination. 5. Mucosal thickening involving the colon which may represent infection, inflammatory or reactive quincy nge from treatment. Correlate clinically. 6. Sacral metastases. POS: [facility]
[2019-10-07] MEDS ORDERED: Acetaminophen 325 MG TAB PO PRN (22:30)
[2019-10-07] MEDS ORDERED: HYDROcodone/Acetaminophen 5/325 mg Tablet PO PRN ×2 (22:30)
[2019-10-07] MEDS ORDERED: Ondansetron PF 4 MG/2 ML Vial IVP PRN ×2 (22:30→23:00)
[2019-10-07] MEDS ORDERED: Ondansetron ODT 4 MG TAB SL PRN (22:30)
[2019-10-07] MEDS ORDERED: Fentanyl 100 MCG/2 ML VIAL SLOW IVP PRN (22:31)
[2019-10-07] MEDS ORDERED: hydrALAZINE 20 MG/ML VIAL SLOW IVP PRN (23:00)
[2019-10-07] MEDS ORDERED: Loperamide HCl 2 MG CAP PO PRN (23:00)
[2019-10-07] MEDS ORDERED: Ondansetron ODT 4 MG TAB PO PRN (23:00)
[2019-10-07] MEDS ORDERED: Magnesium Citrate 300 ML BOT PO SCH (23:45)
[2019-10-07] MEDS: Sodium Chloride 0.9% 1,000 ML IV SCH (23:45)
--- NOTE | 2019-10-08 00:46 | HP ---
PRIMARY CARE PROVIDER: Sidney Nicolas DO CHIEF COMPLAINT: Fever, weakness, and confusion. HISTORY OF PRESENT ILLNESS: This is an 89-year-old male, who presents to [facility] Emergency Department with a significant history of ureteral transitional cell carcinoma, status post left ureteral stent placement, undergoing immunotherapy and radiation treatments. The patient states he has completed 7 radiation treatments and has been followed by Dr. Olguin and Dr. Flower. Family noted the patient with increasing confusion with associated weakness and inability to vinegar maker the last 24 hours. The patient was recently prescribed a fentanyl patch, which was changed at approximately noon, 10/07/2019. The patient states he was evaluated in the emergency room, 09/30/2019, for fever and diarrhea. The patient had recently been placed on oral antibiotics for suspected urine infection and was treated in the emergency room with IV fluids and supportive management. Family states the patient's diarrhea resolved and the patient actually admits to constipation over the last 3 to 4 days. The patient denied any hematemesis or melena, but does state he has overall decreased oral intake and loss of appetite. The patient felt feverish; however, no specific documentation of exact fever at home. No reports of recent fall or injury. However, the patient was disoriented and confused according to family members. In the emergency room, the patient underwent general evaluation including CT of the abdomen and pelvis showing left ureteral stent with worsening hydronephrosis, right greater than left. CT of the brain and portable chest x-ray were unremarkable. The patient received Rocephin 1 g IV after concern for potential urinary tract infection. PAST MEDICAL HISTORY: 1. 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 2. 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 3. Benign prostatic hyperplasia. 4. Left lower extremity DVT, on prior Eliquis, now discontinued due to gross hematuria. 5. Constipation. 6. Osteoarthritis. PAST SURGICAL HISTORY: 1. Status post left total hip arthroplasty. 2. Status post right shoulder arthroplasty. 3. Bilateral inguinal hernia repair. 4. Status post lumbar spine surgery. 5. Status post transurethral resection of the prostate. 6. Status post cystoscopy. 7. Status post left ureteral stent placement with tumor debulking. CURRENT MEDICATIONS: 1. Fentanyl patch 25 mcg q.72 hours. 2. Lasix 20 mg p.o. daily. 3. [place] 10/325 mg one tablet p.o. q.6 hours p.r.n. pain. 4. Multivitamin one tablet p.o. daily. 5. Colace 100 mg p.o. b.i.d. p.r.n. 6. Magnesium citrate 300 mL p.o. daily p.r.n. 7. Bactrim DS one tablet p.o. b.i.d. ALLERGIES: CIPROFLOXACIN. FAMILY HISTORY: No inheritable diseases per patient report. SOCIAL HISTORY: The patient accompanied by his and daughter in the hospital. Former tobacco use, none currently. Lives in assisted living with his . No alcohol or illicit drug use. REVIEW OF SYSTEMS: CONSTITUTIONAL: Negative for weight loss or gain, ability to conduct usual activities. SKIN: Negative for rash, itching. EYES: Negative for double vision, pain. ENT/MOUTH: Negative for nose bleeding, neck stiffness, pain, tenderness. CARDIOVASCULAR: Negative for palpitations, dyspnea on exertion, orthopnea. RESPIRATORY: Negative for shortness of breath, wheezing, cough, hemoptysis, fever or night sweats. GASTROINTESTINAL: Negative for poor appetite, abdominal pain, heartburn, nausea, vomiting, constipation, or diarrhea. GENITOURINARY: Negative for urgency, frequency, dysuria, nocturia. MUSCULOSKELETAL: Negative for pain, swelling. NEUROLOGIC/PSYCHIATRIC: Negative for anxiety, depression. ALLERGY/IMMUNOLOGIC: Negative for skin rash, bleeding tendency. Otherwise negative except as stated per HPI. PHYSICAL EXAMINATION: VITAL SIGNS: On admission, blood pressure 167/67, pulse 76, respiratory rate 16, temperature 99.4 degrees Fahrenheit, O2 saturation 96% on room air. GENERAL APPEARANCE: This is an 89-year-old male, alert and oriented x2, pleasant, conversant, in no acute distress. HEENT: Pupils are equal, round, reactive to light and accommodation. Extraocular muscles are intact. No scleral icterus. No conjunctival injection. Nares patent. OP is clear. Oral mucosa dry. NECK: Supple. No cervical adenopathy. No thyromegaly. No carotid bruits. No JVD appreciated. Cervical spine with full active and passive range of motion. No meningeal signs noted. CHEST: Lungs are clear to auscultation bilaterally. CARDIOVASCULAR: S1, S2 without noted murmur, rub, or gallop. ABDOMEN: Rounded, soft, nontender, and nondistended. Bowel sounds are positive in all 4 quadrants. No palpable mass. No rebound or guarding appreciated. EXTREMITIES: Warm and dry with fair turgor. No clubbing, cyanosis, or asymmetric edema appreciated. Pulses palpable distally at the dorsalis pedis, posterior tibial, and popliteal arteries bilaterally. Capillary refill less than 2 seconds. NEUROLOGIC: Cranial nerves 2 through 12 are grossly intact. Alert and oriented x2. PERTINENT LAB AND X-RAY FINDINGS: Sodium 129, potassium 4.5, chloride 96, CO2 of 22, BUN 23, creatinine 1.30, estimated GFR 52, glucose 111, calcium 8.6, magnesium 1.8. AST 47, ALT of 58, alkaline phosphatase 91. Troponin 0.037. BNP 182. Albumin 3.6, lipase 72. TSH 0.87. CBC showed a white blood cell count of 6.8, hemoglobin 8.1, hematocrit 25, platelet count 84 with 91% neutrophilia. Urinalysis dated 10/07/2019, showed a specific gravity of 1.015, pH is 7.0, positive protein, blood, and leukocyte esterase with 11 to 20 wbcs per high-power field. Influenza A and B antigen dated 10/07/2019, negative. Portable chest x-ray dated 10/07/2019, showed no acute cardiopulmonary process. CT of the brain without contrast dated 10/07/2019, showed no acute intracranial process. CT of the abdomen and pelvis dated 10/07/2019, showed left ureteral stent in appropriate positioning. Stable left-sided hydronephrosis. Severe right-sided hydronephrosis slightly progressed when compared to previous exam. Interval increase in size of neoplastic tumor in the lower left half of the pelvis. Mucosal thickening in the colon. Sacral metastasis is noted. ASSESSMENT AND PLAN: 1. Acute metabolic encephalopathy. Suspect multifactorial including potential urinary tract infection in conjunction with dehydration and fentanyl. We will continue supportive management as outlined below. Serial mental status exams. CT of the brain negative. Continue intravenous normal saline at 100 mL/h. 2. Urinary tract infection. Suspected given the patient's radiation and immunotherapy. Urine culture pending. Continue Rocephin 2 g IV q.24 hours. 3. Ureteral transitional cell carcinoma with current immuno and radiation therapy. Consult Urology Service in the a.m. for any further recommendations. See above for further management. 4. Hyponatremia. Suspect secondary to poor oral intake. Continue IV normal saline at 100 mL/h and repeat sodium level in the a.m. 5. Normocytic anemia. Multifactorial given patient's transitional cell carcinoma and current immunotherapy. Continue serial H and H monitoring. No current evidence of acute blood loss. Repeat CBC in the a.m. 6. Deconditioning/generalized weakness. PT evaluation for functional assessment in the a.m. General fall risk precautions. 7. Prophylaxis. SCDs while in bed. Pepcid 20 mg p.o. b.i.d. PT evaluation in the a.m. CODE STATUS: Full. Surrogate medical decision maker is the patient's spouse. Job ID: [id number]
[2019-10-08 01:19] VITALS: BMI 27.4
[2019-10-08] MEDS: HYDROcodone/Acetaminophen 10/325 mg Tablet PO PRN ×2 (04:27→20:39)
[2019-10-08 07:08] LABS: ALT (SGPT) 46 U/L (8-55); AST (SGOT) 30 U/L (5-34); Albumin 3.5 g/dL (3.4-4.8); Alkaline Phosphatase 83 U/L (40-110); Anion Gap 13 mmol/L (10-20); BUN (Urea Nitrogen) 20 mg/dL (8.4-25.7); Bilirubin, Total 0.6 mg/dL (0.2-1.2); Calc. Creatinine Clearance 53 mL/min (70-130); Calcium 8.5 mg/dL (7.8-10.44); Carbon Dioxide 22 mmol/L (23-31); Chloride 98 mmol/L (98-107); Estimated GFR-MDRD 55; Glucose 126 mg/dL (83-110); Protein, Total 6.5 g/dL (5.8-8.1); Sodium 129 mmol/L (136-145)
[2019-10-08 08:54] LABS: Hemoglobin 7.6 g/dL (14.0-18.0); Mean Corpuscular HGB CONC 33.3 g/dL (32.0-36.0); Mean Corpuscular Hemoglobin 31.2 pg (27.0-31.0); Mean Corpuscular Volume 93.8 fL (78.0-98.0); Mean Platelet Volume 9.2 fL (7.4-10.4); Platelet Count 73 thou/uL (130-400); RBC Distribution Width 14.4 % (11.5-14.5); Red Blood Cell (RBC) Count 2.45 mill/uL (4.70-6.10); White Blood Cell (WBC) Count 5.6 thou/uL (4.8-10.8)
[2019-10-08] MEDS: Vit A,C & E/Lutein/Minerals Tablet PO SCH (08:54)
[2019-10-08] MEDS: Polyethylene Glycol 3350 17 GM Packet PO SCH (08:55)
[2019-10-08] MEDS: Famotidine 20 MG TAB PO SCH (08:55)
[2019-10-08] MEDS: Sodium Chloride 0.9% 1,000 ML IV SCH ×2 (08:56→23:42)
[2019-10-08] MEDS: cefTRIAXone\\ROCEPHIN 2 GM in Sodium Chloride 0.9% 100 ML IVPB SCH (09:30)
--- NOTE | 2019-10-08 09:31 | PDOC.HOSPP ---
- Subjective Encounter Date: 10/08/19 Encounter Time: 09:29 Subjective: very LAC COURTE OREILLES, alert, oriented - Objective Vital Signs & Weight: Vital Signs (12 hours) Temp Pulse Resp BP Pulse Ox 10/08/19 04:26 98.1 F 67 16 131/59 L 95 10/07/19 22:15 99.4 F 76 16 167/67 H 96 Weight Weight 202 lb 6.4 oz I&O: 10/07/19 10/08/19 10/09/19 06:59 06:59 06:59 Intake Total 980 Balance 980 Result Diagrams: 10/08/19 06:15 10/08/19 06:15 Hospitalist ROS - Medication Medications: Active Medications Generic Name Dose Route Start Last Admin Trade Name Freq PRN Reason Stop Dose Admin Hydrocodone Bitart/Acetaminophen 1 tab 10/07/19 23:00 10/08/19 04:27 [place] 10/325 PO 1 tab Q6H PRN Administration Moderate to Severe Pain (6-10) Famotidine 20 mg 10/08/19 09:00 10/08/19 08:55 Pepcid PO 20 mg QAM MARISOL Administration Sodium Chloride 1,000 mls @ 100 mls/hr 10/07/19 23:00 10/08/19 08:56 Normal Saline 0.9% IV 1,000 mls .Q10H MARISOL Administration Multivitamins/Minerals 1 tab 10/08/19 09:00 10/08/19 08:54 Ocuvite With Lutein PO 1 tab DAILY MARISOL Administration Ondansetron HCl 4 mg 10/07/19 23:00 10/08/19 03:49 Zofran Odt PO 4 mg Q6H PRN Administration Nausea/Vomiting Polyethylene Glycol 17 gm 10/08/19 09:00 10/08/19 08:55 Miralax PO Not Given DAILY MARISOL Sodium Chloride 10 ml 10/08/19 09:00 10/08/19 08:55 Flush - Normal Saline IVF 10 ml Q12HR MARISOL Administration - Exam General Appearance: awake alert Neck: no JVD Heart: RRR, no murmur Respiratory: CTAB, no wheezes Gastrointestinal: soft, normal bowel sounds Extremities: no edema Hosp A/P (1) Encephalopathy acute Code(s): G93.40 - ENCEPHALOPATHY, UNSPECIFIED Status: Acute (2) Hydronephrosis Code(s): N13.30 - UNSPECIFIED HYDRONEPHROSIS Status: Acute Qualifiers: Hydronephrosis type: unspecified Qualified Code(s): N13.30 - Unspecified hydronephrosis (3) Transitional cell bladder cancer Code(s): C67.9 - MALIGNANT NEOPLASM OF BLADDER, UNSPECIFIED Status: Acute (4) Anemia Code(s): D64.9 - ANEMIA, UNSPECIFIED Status: Acute Qualifiers: Anemia type: unspecified type Qualified Code(s): D64.9 - Anemia, unspecified (5) Hyponatremia Code(s): E87.1 - HYPO-OSMOLALITY AND HYPONATREMIA Status: Acute - Plan on iv saline on iv antibx consult pending
[2019-10-08 09:41] LABS: Band 1 % (5-11); Eosinophils 1 % (0-10); Lymphocytes 5 % (21-51); MDiff Complete? YES; Neutrophil 91 % (42-75); Platelet Morphology Comment Appears Decreased; Polychromasia SLIGHT = 2-3 cells (100X) (0-2/hpf); Reactive Lymphocytes 2 % (0-10)
[2019-10-08] MEDS: Acetaminophen 500 MG TAB PO PRN ×2 (09:51→17:26)
[2019-10-08 11:20] LABS: Iron 109 ug/dL (65-175); Iron Binding Capacity, Total 206 mcg/dL (261-462)
[2019-10-08] MEDS: Loperamide HCl 2 MG CAP PO PRN ×2 (14:00→15:33)
--- NOTE | 2019-10-08 18:46 | CON ---
DATE OF CONSULTATION: 10/08/2019 This is a patient I know well. 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 It has progressed on chemotherapy and he has been managed with left stent because of hydronephrosis on the left. He has a CAT scan during this admission for his bilateral hydro. His creatinine is 1.23. He is anemic. He has not had elevated white count. His urinalysis does not show bacteria, just white cells and red cells which is consistent with a bladder cancer as well as the stent being in place. Cultures have been done. Urine is pending. The blood cultures are still negative. His vital signs are stable. 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 I cannot find out why he actually came into the hospital. From his complaints, although it appears that from reading the notes that he has had diarrhea and perhaps some altered mental status. He was found to be hyponatremic. I have reviewed his CAT scan. If it was felt that it would be of any benefit to have each kidney drained as well as it could be drained at this point in time. In his state, he would require bilateral nephrostomy tubes. I do not think that this left stent is going to continue working well with the amount of hydronephrosis he has and the amount of tumor that he has now around the stent. I do not think placing a right ureteral stent makes sense. At this point, I think it was felt that he strongly needed better urinary drainage, then bilateral nephrostomy tubes would be my recommendation, they can be placed by Interventional Radiology. He does have a normal creatinine at this time, so it may be that he does not require these. It does not appear that he is in any great distress or pain related to the hydronephrosis. I would not attempt at this point to place a right ureteral stent and I think exchanging the left ureteral stent will be difficult. I hope to come back either later today or tomorrow and I will look for his family to discuss that further. I do think that if that decision on placing this perc tube should also be made with Medical Oncology to get their input in terms of how much further they will be able to go with this treatment and what their expectations would be for his life expectancy. Job ID: [id number]
[2019-10-09] MEDS: Sodium Chloride 0.9% 1,000 ML IV SCH ×2 (06:38→17:22)
[2019-10-09] MEDS: HYDROcodone/Acetaminophen 10/325 mg Tablet PO PRN ×3 (11:02→22:56)
[2019-10-09] MEDS: cefTRIAXone\\ROCEPHIN 2 GM in Sodium Chloride 0.9% 100 ML IVPB SCH (11:04)
[2019-10-09] MEDS: Famotidine 20 MG TAB PO SCH (11:04)
[2019-10-09] MEDS: Vit A,C & E/Lutein/Minerals Tablet PO SCH (11:05)
[2019-10-09] MEDS: Polyethylene Glycol 3350 17 GM Packet PO SCH (11:05)
--- NOTE | 2019-10-09 11:32 | PDOC.HOSPP ---
- Subjective Encounter Date: 10/09/19 Encounter Time: 11:30 Subjective: pain persists - Objective Vital Signs & Weight: Vital Signs (12 hours) Temp Resp BP Pulse Ox 10/09/19 08:17 99.3 F 18 135/59 L 95 Weight Weight 202 lb 6.4 oz I&O: 10/08/19 10/09/19 10/10/19 06:59 06:59 06:59 Intake Total 980 9620 Output Total 2 Balance 980 4447 Result Diagrams: 10/08/19 06:15 10/08/19 06:15 Hospitalist ROS - Medication Medications: Active Medications Generic Name Dose Route Start Last Admin Trade Name Freq PRN Reason Stop Dose Admin Acetaminophen 1,000 mg 10/07/19 23:00 10/08/19 17:26 Tylenol PO 1,000 mg Q6H PRN Administration Mild Pain (1-3) Hydrocodone Bitart/Acetaminophen 1 tab 10/07/19 23:00 10/09/19 11:02 [place] 10/325 PO 1 tab Q6H PRN Administration Moderate to Severe Pain (6-10) Famotidine 20 mg 10/08/19 09:00 10/09/19 11:04 Pepcid PO 20 mg QAM MARISOL Administration Sodium Chloride 1,000 mls @ 100 mls/hr 10/07/19 23:00 10/09/19 06:38 Normal Saline 0.9% IV Not Given .Q10H MARISOL Ceftriaxone Sodium 2 gm/ 100 mls @ 200 mls/hr 10/08/19 09:00 10/09/19 11:04 Sodium Chloride IVPB 100 mls Q24HR MARISOL Administration Loperamide HCl 2 mg 10/07/19 23:00 10/08/19 15:33 Imodium PO 2 mg PRN PRN Administration Diarrhea/Loose Stools Multivitamins/Minerals 1 tab 10/08/19 09:00 10/09/19 11:05 Ocuvite With Lutein PO Not Given DAILY MARISOL Ondansetron HCl 4 mg 10/07/19 23:00 10/08/19 03:49 Zofran Odt PO 4 mg Q6H PRN Administration Nausea/Vomiting Polyethylene Glycol 17 gm 10/08/19 09:00 10/09/19 11:05 Miralax PO Not Given DAILY MARISOL Sodium Chloride 10 ml 10/08/19 09:00 10/09/19 11:05 Flush - Normal Saline IVF 10 ml Q12HR MARISOL Administration - Exam Neck: no JVD Heart: RRR, no murmur Respiratory: CTAB Gastrointestinal: soft, normal bowel sounds Extremities: no edema Hosp A/P (1) Encephalopathy acute Code(s): G93.40 - ENCEPHALOPATHY, UNSPECIFIED Status: Acute (2) Hydronephrosis Code(s): N13.30 - UNSPECIFIED HYDRONEPHROSIS Status: Acute Qualifiers: Hydronephrosis type: unspecified Qualified Code(s): N13.30 - Unspecified hydronephrosis (3) Transitional cell bladder cancer Code(s): C67.9 - MALIGNANT NEOPLASM OF BLADDER, UNSPECIFIED Status: Acute (4) Anemia Code(s): D64.9 - ANEMIA, UNSPECIFIED Status: Acute Qualifiers: Anemia type: unspecified type Qualified Code(s): D64.9 - Anemia, unspecified (5) Hyponatremia Code(s): E87.1 - HYPO-OSMOLALITY AND HYPONATREMIA Status: Acute - Plan on iv saline on iv antibx will concult oncology to discuss GDU comments appreciate Dr Ambrocio comments
--- NOTE | 2019-10-09 16:58 | PRG ---
DATE OF SERVICE: 10/09/2019 I saw this patient and talked with his in room 136 on the Oncology floor. His vital signs remained stable. He appears to be urinating okay, did not have any lab work done today. Microbiology shows no urine, no growth at 36 hours on his urine culture, no growth on his blood cultures. I talked with the he came in with altered mental status and weakness. It was told that not a urinary tract infection. It was probably perhaps some metabolic encephalopathy from the low sodium, but it was not from urinary tract infection. He can probably stop the IV antibiotics. I talked with her specifically about the bilateral hydronephrosis and a normal renal function and talked about the fact that it is unlikely that we are going to continue to adequately drain this left kidney with the stent and that placing a stent up the right side for the right hydronephrosis, he is probably not going to in the long run be desirable. Options would include bilateral percutaneous tubes. I talked with her about this. They have their own set of problems with bleeding, infection, needing to be replaced every few weeks, so she will have to think about this. I think it should also be discussed with Medical Oncology. It may be best to not intervene further unless his creatinine starts to deteriorate and further therapy was planned. She is interested in doing everything he can for him not to hurt and I do not think he is having pain from the hydronephrosis. 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 Job ID: [id number]
[2019-10-09 22:26] LABS: #Eosinphils 0.1 thou/uL (0.0-0.7); #Lymphocytes 0.4 thou/uL (1.20-3.40); #Monocytes 0.2 thou/uL (0.11-0.59); #Neutrophils 4.1 thou/uL (1.40-6.50); %Basophils 0.2 % (0.0-1.0); %Eosinophils 1.3 % (0.0-10.0); %Lymphocytes 8.1 % (21.0-51.0); %Monocytes 3.2 % (0.0-10.0); %Neutrophils 87.4 % (42.0-75.0); Hemoglobin 7.8 g/dL (14.0-18.0); Mean Corpuscular HGB CONC 32.7 g/dL (32.0-36.0); Mean Corpuscular Hemoglobin 31.2 pg (27.0-31.0); Mean Corpuscular Volume 95.2 fL (78.0-98.0); Mean Platelet Volume 8.9 fL (7.4-10.4); Platelet Count 62 thou/uL (130-400); RBC Distribution Width 14.4 % (11.5-14.5); Red Blood Cell (RBC) Count 2.49 mill/uL (4.70-6.10); White Blood Cell (WBC) Count 4.6 thou/uL (4.8-10.8)
[2019-10-09 22:39] LABS: ALT (SGPT) 27 U/L (8-55); AST (SGOT) 18 U/L (5-34); Albumin 3.4 g/dL (3.4-4.8); Alkaline Phosphatase 79 U/L (40-110); Anion Gap 13 mmol/L (10-20); BUN (Urea Nitrogen) 13 mg/dL (8.4-25.7); Bilirubin, Total 0.5 mg/dL (0.2-1.2); Calc. Creatinine Clearance 67 mL/min (70-130); Calcium 8.5 mg/dL (7.8-10.44); Carbon Dioxide 23 mmol/L (23-31); Chloride 98 mmol/L (98-107); Estimated GFR-MDRD 73; Globulin 3.1 g/dL (2.4-3.5); Glucose 103 mg/dL (83-110); Potassium 4.2 mmol/L (3.5-5.1); Protein, Total 6.5 g/dL (5.8-8.1); Sodium 130 mmol/L (136-145)
--- NOTE | 2019-10-10 00:26 | CON ---
DATE OF CONSULTATION: REASON FOR CONSULT: Ureter cancer. HISTORY OF PRESENT ILLNESS: Mr. Acuña is an 89-year-old gentleman, who was diagnosed with locally advanced ureteral cancer in early 2018. He underwent treatment with chemotherapy and immunotherapy. His most recent CT scan in August showed dramatic progression with immunotherapy. He had worsening hydronephrosis and locally advanced disease that was invading into the S1 vertebral body. Decision was made to start concurrent chemoradiation and he has received seven doses of radiation and two doses of carboplatin and Taxol. He presented to the hospital on the with fever, weakness, and altered mental status. There was concern he had urinary tract infection and he was started on IV antibiotics with improvement in his mental status. He has had significant pain throughout this process and was recently started on a fentanyl patch, which might be responsible for some of his changes in mental status. The patient was seen at bedside with his present. He is hard of hearing, but denied pain at this time. PAST MEDICAL HISTORY: 1. Stage IV urothelial carcinoma. 2. Recent deep venous thrombosis. 3. Bilateral hydronephrosis with stent placement. 4. BPH. PAST SURGICAL HISTORY: Ureteral biopsy, hip surgery, prostate surgery, skin cancer removal, hip repair, back surgery, and shoulder surgery. ALLERGIES: TO CIPRO. HOME MEDICATIONS: 1. Eliquis 5 mg b.i.d. 2. Lasix. 3. [place]. 4. Duragesic 25 mcg. 5. Tramadol. 6. B12. FAMILY HISTORY: Mother had pancreatic cancer. SOCIAL HISTORY: , has 3 children. Lives with his spouse. No alcohol, tobacco, or illicit drug use. REVIEW OF SYSTEMS: Positive for hearing loss and pain. PHYSICAL EXAMINATION: VITAL SIGNS: Temperature is 99.3, pulse is 67, respiratory rate 18, BP is 135/59. He is 95% on room air. GENERAL: This is a well-developed, well-nourished male, in no acute distress. He is extremely hard of hearing. HEENT: Atraumatic. Pupils are equal and reactive to light. NECK: Supple. CV: Regular rate and rhythm. LUNGS: Clear. ABDOMEN: Soft and nontender. Bowel sounds are positive. EXTREMITIES: He has 2+ bilateral lower extremity edema. SKIN: No rash. HEMATOLOGIC: No petechiae or purpura. NEUROLOGICAL: Nonfocal. PERTINENT LABS AND X-RAYS: WBCs are 5.6, hemoglobin 7.6, hematocrit 22.9, platelet count 73,000. He has 91% neutrophils, 1% bands, and 5% lymphocytes. Sodium is 129, potassium 4.9, chloride 98, CO2 is 22, BUN is 20, creatinine 1.23, calcium 8.5, bilirubin 0.6, AST is 30, ALT is 46, alkaline phosphatase is 83. Serum total protein is 6.5, albumin 3.5, globulin 3.0. Urine had 2+ blood, positive leukocyte esterase. Radiology showed bilateral hydronephrosis with stent in the left ureter. An increase in the pelvic tumor as noted prior. ASSESSMENT: 1. Stage IV urothelial cancer with recent progression. 2. Bilateral hydronephrosis. 3. Possible urinary tract infection. 4. Hyponatremia. DISCUSSION: The patient has had significant pain with this recent progression of his tumor. He is currently receiving concurrent chemoradiation for pain relief and to prevent acute cord injury. His pain is being managed with fentanyl and [place]. If he completes treatment, he would likely go on hospice, however, he could live several months thereafter. Case was discussed with Dr. Olguin. Thank you for the consult. Job ID: [id number]
[2019-10-10] MEDS: fentaNYL 50 mcg/hour Patch TD SCH (08:38)
[2019-10-10] MEDS: cefTRIAXone\\ROCEPHIN 2 GM in Sodium Chloride 0.9% 100 ML IVPB SCH (09:20)
[2019-10-10] MEDS: Famotidine 20 MG TAB PO SCH (09:27)
[2019-10-10] MEDS: Vit A,C & E/Lutein/Minerals Tablet PO SCH (09:27)
[2019-10-10] MEDS: Polyethylene Glycol 3350 17 GM Packet PO SCH (09:27)
[2019-10-10] MEDS: HYDROcodone/Acetaminophen 10/325 mg Tablet PO PRN ×4 (09:28→20:54)
[2019-10-10] MEDS: Sodium Chloride 0.9% 1,000 ML IV SCH ×3 (09:37→20:53)
--- NOTE | 2019-10-10 12:04 | PDOC.MOPN ---
Interval History: Pt ok today, eating breakfast. Pain not controlled with fentanyl and hydrocodone as scheduled. - Vital Signs Vital Signs: Vital Signs (12 hours) Temp Pulse Resp BP Pulse Ox 10/10/19 11:12 98.8 F 65 20 133/60 95 10/10/19 08:00 99.6 F 73 20 134/61 93 L Weight Weight 202 lb 6.4 oz - Physical Exam General: Alert, Oriented x3, Cooperative HEENT: Atraumatic Lungs: Normal air movement Cardiovascular: Regular rate Psych/Mental Status: Mood NL - Labs Result Diagrams: 10/09/19 22:13 10/09/19 22:13 Lab results: Laboratory Results - last 24 hr 10/09/19 22:13: WBC 4.6 L, RBC 2.49 L, Hgb 7.8 L, Hct 23.7 L, MCV 95.2, MCH 31.2 H, MCHC 32.7, RDW 14.4, Plt Count 62 L, MPV 8.9, Neutrophils % 87.4 H, Neutrophils % (Manual) Not Reportable, Lymphocytes % 8.1 L, Monocytes % 3.2, Eosinophils % 1.3, Basophils % 0.2, Neutrophils # 4.1, Lymphocytes # 0.4 L, Monocytes # 0.2, Eosinophils # 0.1, Basophils # 0.0 10/09/19 22:13: Sodium 130 L, Potassium 4.2, Chloride 98, Carbon Dioxide 23, Anion Gap 13, BUN 13, Creatinine 0.97, Estimated GFR (MDRD) 73, Glucose 103, Calcium 8.5, Total Bilirubin 0.5, AST 18, ALT 27, Alkaline Phosphatase 79, Serum Total Protein 6.5, Albumin 3.4, Globulin 3.1, Albumin/Globulin Ratio 1.1 L A/P - Plan Plan: increase fentanyl to 50 mcg, hydrocodone q4h prn breakthrough pain cont antibiotics for now given clinical improvement, no fevers and cultures NGTD due for chemotherapy Tuesday if he is stable for discharge before then, ok to cont XRT as per Dr. Flower with hopes of long-term pain control
--- NOTE | 2019-10-10 15:40 | PDOC.PALFU ---
Palliative Care Follow-up Note Attempted to introduce Palliative Care to patient, he was receiving radiation. Palliative Care will follow up 10/11.
--- NOTE | 2019-10-10 16:11 | PDOC.HOSPP ---
- Subjective Encounter Date: 10/10/19 Encounter Time: 16:08 Subjective: sleepy - Objective Vital Signs & Weight: Vital Signs (12 hours) Temp Pulse Resp BP Pulse Ox 10/10/19 11:12 98.8 F 65 20 133/60 95 10/10/19 08:00 99.6 F 73 20 134/61 93 L Weight Weight 202 lb 6.4 oz I&O: 10/09/19 10/10/19 10/11/19 06:59 06:59 06:59 Intake Total 3680 1550 Output Total 2 Balance 3678 1550 Result Diagrams: 10/09/19 22:13 10/09/19 22:13 Hospitalist ROS - Medication Medications: Active Medications Generic Name Dose Route Start Last Admin Trade Name Freq PRN Reason Stop Dose Admin Acetaminophen 1,000 mg 10/07/19 23:00 10/08/19 17:26 Tylenol PO 1,000 mg Q6H PRN Administration Mild Pain (1-3) Hydrocodone Bitart/Acetaminophen 1 tab 10/10/19 08:05 10/10/19 13:11 [place] 10/325 PO 1 tab Q4H PRN Administration Moderate to Severe Pain (6-10) Famotidine 20 mg 10/08/19 09:00 10/10/19 09:27 Pepcid PO 20 mg QAM MARISOL Administration Fentanyl 50 mcg 10/10/19 09:00 10/10/19 08:38 Duragesic TD 50 mcg Q3D MARISOL Administration Sodium Chloride 1,000 mls @ 100 mls/hr 10/07/19 23:00 10/10/19 13:13 Normal Saline 0.9% IV Not Given .Q10H MARISOL Loperamide HCl 2 mg 10/07/19 23:00 10/08/19 15:33 Imodium PO 2 mg PRN PRN Administration Diarrhea/Loose Stools Multivitamins/Minerals 1 tab 10/08/19 09:00 10/10/19 09:27 Ocuvite With Lutein PO 1 tab DAILY MARISOL Administration Ondansetron HCl 4 mg 10/07/19 23:00 10/08/19 03:49 Zofran Odt PO 4 mg Q6H PRN Administration Nausea/Vomiting Polyethylene Glycol 17 gm 10/08/19 09:00 10/10/19 09:27 Miralax PO Not Given DAILY MARISOL Sodium Chloride 10 ml 10/08/19 09:00 10/10/19 09:27 Flush - Normal Saline IVF 10 ml Q12HR MARISOL Administration - Exam Neck: no JVD Heart: RRR, no murmur Respiratory: CTAB Gastrointestinal: soft, normal bowel sounds Extremities: no edema Hosp A/P (1) Encephalopathy acute Code(s): G93.40 - ENCEPHALOPATHY, UNSPECIFIED Status: Acute (2) Hydronephrosis Code(s): N13.30 - UNSPECIFIED HYDRONEPHROSIS Status: Acute Qualifiers: Hydronephrosis type: unspecified Qualified Code(s): N13.30 - Unspecified hydronephrosis (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
[2019-10-11] MEDS: HYDROcodone/Acetaminophen 10/325 mg Tablet PO PRN ×3 (06:58→15:27)
--- NOTE | 2019-10-11 08:24 | PDOC.HOSPP ---
- Subjective Encounter Date: 10/11/19 Encounter Time: 08:23 Subjective: pain improved on incresed meds - Objective Vital Signs & Weight: Vital Signs (12 hours) Temp Pulse Resp BP Pulse Ox 10/10/19 20:55 98.1 F 86 18 133/63 92 L Weight Weight 202 lb 6.4 oz I&O: 10/10/19 10/11/19 10/12/19 06:59 06:59 06:59 Intake Total 1550 1500 Balance 1550 1500 Result Diagrams: 10/09/19 22:13 10/09/19 22:13 Hospitalist ROS - Medication Medications: Active Medications Generic Name Dose Route Start Last Admin Trade Name Freq PRN Reason Stop Dose Admin Acetaminophen 1,000 mg 10/07/19 23:00 10/08/19 17:26 Tylenol PO 1,000 mg Q6H PRN Administration Mild Pain (1-3) Hydrocodone Bitart/Acetaminophen 1 tab 10/10/19 08:05 10/11/19 06:58 [place] 10/325 PO 1 tab Q4H PRN Administration Moderate to Severe Pain (6-10) Famotidine 20 mg 10/08/19 09:00 10/10/19 09:27 Pepcid PO 20 mg QAM MARISOL Administration Fentanyl 50 mcg 10/10/19 09:00 10/10/19 08:38 Duragesic TD 50 mcg Q3D MARISOL Administration Sodium Chloride 1,000 mls @ 100 mls/hr 10/07/19 23:00 10/10/19 20:53 Normal Saline 0.9% IV 1,000 mls .Q10H MARISOL Administration Loperamide HCl 2 mg 10/07/19 23:00 10/08/19 15:33 Imodium PO 2 mg PRN PRN Administration Diarrhea/Loose Stools Multivitamins/Minerals 1 tab 10/08/19 09:00 10/10/19 09:27 Ocuvite With Lutein PO 1 tab DAILY MARISOL Administration Ondansetron HCl 4 mg 10/07/19 23:00 10/08/19 03:49 Zofran Odt PO 4 mg Q6H PRN Administration Nausea/Vomiting Polyethylene Glycol 17 gm 10/08/19 09:00 10/10/19 09:27 Miralax PO Not Given DAILY MARISOL Sodium Chloride 10 ml 10/08/19 09:00 10/10/19 20:53 Flush - Normal Saline IVF Not Given Q12HR MARISOL - Exam General Appearance: awake alert Neck: no JVD Heart: RRR, no murmur Respiratory: CTAB Gastrointestinal: soft, non-distended, normal bowel sounds Extremities: no edema Hosp A/P (1) Encephalopathy acute Code(s): G93.40 - ENCEPHALOPATHY, UNSPECIFIED Status: Acute (2) Hydronephrosis Code(s): N13.30 - UNSPECIFIED HYDRONEPHROSIS Status: Acute Qualifiers: Hydronephrosis type: unspecified Qualified Code(s): N13.30 - Unspecified hydronephrosis (3) Transitional cell bladder cancer Code(s): C67.9 - MALIGNANT NEOPLASM OF BLADDER, UNSPECIFIED Status: Acute (4) Anemia Code(s): D64.9 - ANEMIA, UNSPECIFIED Status: Acute Qualifiers: Anemia type: unspecified type Qualified Code(s): D64.9 - Anemia, unspecified (5) Hyponatremia Code(s): E87.1 - HYPO-OSMOLALITY AND HYPONATREMIA Status: Acute - Plan on increased doses analgesics per oncologtransition rocephi to po cefdinar post radio. tCM for SNF
--- NOTE | 2019-10-11 09:02 | PDOC.MOPN ---
Interval History: states pain controlled. - Vital Signs Vital Signs: Weight Weight 202 lb 6.4 oz - Physical Exam General: Other ([place]) HEENT: Atraumatic, PERRLA, EOMI, Mucous membr. moist/pink Lungs: Clear to auscultation, Normal air movement Cardiovascular: Regular rate, Normal S1, Normal S2, No murmurs, Gallops, Rubs Abdomen: Normal bowel sounds, Soft, No tenderness, No hepatospenomegaly, No masses Extremities: No clubbing, No cyanosis, No edema, Normal pulses, No tenderness/ swelling Skin: No rashes, No breakdown, No significant lesion Neurological: Normal speech Psych/Mental Status: Mental status NL, Mood NL - Labs Result Diagrams: 10/09/19 22:13 10/09/19 22:13 Status: lab reviewed by me A/P - Problem (1) Transitional cell bladder cancer Current Visit: Yes Code(s): C67.9 - MALIGNANT NEOPLASM OF BLADDER, UNSPECIFIED Status: Acute - Plan Plan: Pain controlled with norco and fentanyl 50mcg patch Ok to dc home from our perspective recommend back to assisted living so he can continue CCRT for pain control.
[2019-10-11] MEDS: Famotidine 20 MG TAB PO SCH (10:03)
[2019-10-11] MEDS: Cefdinir 300 MG CAP PO SCH (10:03)
[2019-10-11] MEDS: Vit A,C & E/Lutein/Minerals Tablet PO SCH (10:04)
[2019-10-11] MEDS: Polyethylene Glycol 3350 17 GM Packet PO SCH (10:04)
[2019-10-11] MEDS: Sodium Chloride 0.9% 1,000 ML IV SCH (18:32)
[2019-10-12] MEDS: HYDROcodone/Acetaminophen 10/325 mg Tablet PO PRN ×3 (03:38→20:10)
[2019-10-12] MEDS: Cefdinir 300 MG CAP PO SCH (08:43)
[2019-10-12] MEDS: Famotidine 20 MG TAB PO SCH ×2 (08:45→20:10)
[2019-10-12] MEDS: Polyethylene Glycol 3350 17 GM Packet PO SCH (08:45)
[2019-10-12] MEDS: Vit A,C & E/Lutein/Minerals Tablet PO SCH (09:20)
[2019-10-12 10:39] LABS: Hemoglobin 7.4 g/dL (14.0-18.0); Mean Corpuscular HGB CONC 32.5 g/dL (32.0-36.0); Mean Corpuscular Volume 95.3 fL (78.0-98.0); Mean Platelet Volume 9.3 fL (7.4-10.4); Platelet Count 62 thou/uL (130-400); RBC Distribution Width 14.4 % (11.5-14.5); White Blood Cell (WBC) Count 3.5 thou/uL (4.8-10.8)
[2019-10-12 10:42] LABS: Anion Gap 10 mmol/L (10-20); BUN (Urea Nitrogen) 11 mg/dL (8.4-25.7); Calc. Creatinine Clearance 74 mL/min (70-130); Calcium 8.5 mg/dL (7.8-10.44); Carbon Dioxide 24 mmol/L (23-31); Chloride 100 mmol/L (98-107); Estimated GFR-MDRD 82; Glucose 120 mg/dL (83-110); Potassium 4.2 mmol/L (3.5-5.1); Sodium 130 mmol/L (136-145)
[2019-10-12 11:00] LABS: Band 7 % (5-11); Eosinophils 1 % (0-10); Lymphocytes 9 % (21-51); MDiff Complete? YES; Monocytes 11 % (0-10); Neutrophil 72 % (42-75); Platelet Morphology Comment Appears Decreased; Polychromasia SLIGHT = 2-3 cells (100X) (0-2/hpf)
--- NOTE | 2019-10-12 14:03 | PDOC.MOPN ---
Interval History: pain controlled. Continues radiation today. - Vital Signs Vital Signs: Vital Signs (12 hours) Temp Pulse Resp BP Pulse Ox 10/12/19 08:00 98.6 F 62 16 139/63 94 L Weight Weight 202 lb 6.4 oz - Physical Exam General: Alert, Oriented x3, No acute distress HEENT: Other ([place]) Lungs: Clear to auscultation Cardiovascular: Regular rate Abdomen: Normal bowel sounds, Soft, No tenderness, No hepatospenomegaly, No masses Skin: No rashes, No breakdown, No significant lesion Neurological: Normal speech - Labs Result Diagrams: 10/12/19 10:06 10/12/19 10:06 Lab results: Laboratory Results - last 24 hr 10/12/19 10:06: WBC 3.5 L, RBC 2.40 L, Hgb 7.4 L, Hct 22.9 L, MCV 95.3, MCH 31.0 , MCHC 32.5, RDW 14.4, Plt Count 62 L, MPV 9.3, Neutrophils % (Manual) 72, Band Neuts % (Manual) 7, Lymphocytes % (Manual) 9 L, Monocytes % (Manual) 11 H, Eosinophils % (Manual) 1, Neutrophils # Not Reportable, Lymphocytes # Not Reportable, Plt Morphology Comment Appears Decreased L, Polychromasia SLIGHT = 2 -3 cells 10/12/19 10:06: Sodium 130 L, Potassium 4.2, Chloride 100, Carbon Dioxide 24, Anion Gap 10, BUN 11, Creatinine 0.88, Estimated GFR (MDRD) 82, Glucose 120 H, Calcium 8.5 Status: lab reviewed by me A/P - Problem (1) Transitional cell bladder cancer Current Visit: Yes Code(s): C67.9 - MALIGNANT NEOPLASM OF BLADDER, UNSPECIFIED Status: Acute - Plan Plan: Patient comfortable with fentanyl and norco Family discussion regarding goals of care and decision to continue palliative CCRT Ok to go home today and follow-up outpatient.
[2019-10-12] MEDS ORDERED: Apixaban 5 MG TAB PO SCH (15:37)
--- NOTE | 2019-10-12 16:35 | PDOC.HOSPP ---
- Subjective Encounter Date: 10/12/19 Encounter Time: 09:45 Subjective: pt up in bed awake but hard of hearing. - Objective Vital Signs & Weight: Vital Signs (12 hours) Temp Pulse Resp BP Pulse Ox 10/12/19 08:00 98.6 F 62 16 139/63 94 L Weight Weight 202 lb 6.4 oz I&O: 10/11/19 10/12/19 10/13/19 06:59 06:59 06:59 Intake Total 1500 1000 Balance 1500 1000 Result Diagrams: 10/12/19 10:06 10/12/19 10:06 Hospitalist ROS - Review of Systems Respiratory: denies: cough, dry, shortness of breath, hemoptysis, SOB with excertion, pleuritic pain, sputum, wheezing, other Gastrointestinal: denies: nausea, vomiting, abdominal pain, diarrhea, constipation, melena, hematochezia, other - Medication Medications: Active Medications Generic Name Dose Route Start Last Admin Trade Name Freq PRN Reason Stop Dose Admin Acetaminophen 1,000 mg 10/07/19 23:00 10/08/19 17:26 Tylenol PO 1,000 mg Q6H PRN Administration Mild Pain (1-3) Hydrocodone Bitart/Acetaminophen 1 tab 10/10/19 08:05 10/12/19 08:43 [place] 10/325 PO 1 tab Q4H PRN Administration Moderate to Severe Pain (6-10) Cefdinir 600 mg 10/11/19 09:00 10/12/19 08:43 Omnicef PO 600 mg DAILY MARISOL Administration Fentanyl 50 mcg 10/10/19 09:00 10/10/19 08:38 Duragesic TD 50 mcg Q3D MARISOL Administration Loperamide HCl 2 mg 10/07/19 23:00 10/08/19 15:33 Imodium PO 2 mg PRN PRN Administration Diarrhea/Loose Stools Multivitamins/Minerals 1 tab 10/08/19 09:00 10/12/19 09:20 Ocuvite With Lutein PO 1 tab DAILY MARISOL Administration Ondansetron HCl 4 mg 10/07/19 23:00 10/08/19 03:49 Zofran Odt PO 4 mg Q6H PRN Administration Nausea/Vomiting Polyethylene Glycol 17 gm 10/08/19 09:00 10/12/19 08:45 Miralax PO 17 gm DAILY MARISOL Administration Sodium Chloride 10 ml 10/08/19 09:00 10/12/19 10:16 Flush - Normal Saline IVF 10 ml Q12HR MARISOL Administration - Exam Neck: negative: supple, symmetric, no JVD, no thyromegaly, no lymphadenopathy, no carotid bruit, JVD Heart: negative: RRR, no murmur, no gallops, no rubs, normal peripheral pulses, irregular, diminshed peripheral pulses, murmur present, II/IV, III/IV Respiratory: negative: CTAB, no wheezes, no rales, no ronchi, normal chest expansion, no tachypnea, normal percussion, rales, rhonchi, tachypneic, wheezes Hosp A/P (1) DVT (deep venous thrombosis) Code(s): I82.409 - ACUTE EMBOLISM AND THOMBOS UNSP DEEP VN UNSP LOWER EXTREMITY Status: Acute (2) Encephalopathy acute Code(s): G93.40 - ENCEPHALOPATHY, UNSPECIFIED Status: Acute (3) Hydronephrosis Code(s): N13.30 - UNSPECIFIED HYDRONEPHROSIS Status: Acute Qualifiers: Hydronephrosis type: unspecified Qualified Code(s): N13.30 - Unspecified hydronephrosis (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 pt was doing well before radiation however after radiation nurse stated that pt appeared oriented x1 only. will watch him one more night. will check his hh in am
[2019-10-13] MEDS: HYDROcodone/Acetaminophen 10/325 mg Tablet PO PRN (01:40)
[2019-10-13 05:49] LABS: Band 4 % (5-11); Lymphocytes 13 % (21-51); MDiff Complete? YES; Mean Corpuscular HGB CONC 33.3 g/dL (32.0-36.0); Mean Corpuscular Hemoglobin 31.3 pg (27.0-31.0); Mean Corpuscular Volume 93.9 fL (78.0-98.0); Mean Platelet Volume 9.2 fL (7.4-10.4); Monocytes 12 % (0-10); Neutrophil 71 % (42-75); Platelet Count 60 thou/uL (130-400); Platelet Morphology Comment Appears Decreased; RBC Distribution Width 14.4 % (11.5-14.5); Red Blood Cell (RBC) Count 2.56 mill/uL (4.70-6.10); White Blood Cell (WBC) Count 4.2 thou/uL (4.8-10.8)
[2019-10-13] MEDS: fentaNYL 50 mcg/hour Patch TD SCH (09:59)
[2019-10-13] MEDS: traMADol HCl 50 MG TAB PO PRN ×2 (10:01→18:00)
[2019-10-13] MEDS: Famotidine 20 MG TAB PO SCH ×2 (10:01→21:35)
[2019-10-13] MEDS: Polyethylene Glycol 3350 17 GM Packet PO SCH (10:02)
[2019-10-13] MEDS: Cefdinir 300 MG CAP PO SCH (10:04)
[2019-10-13] MEDS: Vit A,C & E/Lutein/Minerals Tablet PO SCH (15:25)
--- NOTE | 2019-10-14 07:38 | PDOC.HOSPP ---
- Subjective Encounter Date: 10/13/19 Encounter Time: 10:15 Subjective: pt up in bed no complains of pain. He is very hard of hearing - Objective Vital Signs & Weight: Vital Signs (12 hours) Temp Pulse Resp BP Pulse Ox 10/14/19 07:14 97.5 F L 67 12 118/58 L 91 L Weight Weight 202 lb 6.4 oz I&O: 10/13/19 10/14/19 10/15/19 06:59 06:59 06:59 Intake Total 350 Balance 350 Result Diagrams: 10/13/19 04:40 10/12/19 10:06 Hospitalist ROS - Review of Systems Cardiovascular: denies: chest pain, palpitations, orthopnea, paroxysmal noc. dyspnea, edema, light headedness, other Gastrointestinal: denies: nausea, vomiting, abdominal pain, diarrhea, constipation, melena, hematochezia, other - Medication Medications: Active Medications Generic Name Dose Route Start Last Admin Trade Name Freq PRN Reason Stop Dose Admin Acetaminophen 1,000 mg 10/07/19 23:00 10/08/19 17:26 Tylenol PO 1,000 mg Q6H PRN Administration Mild Pain (1-3) Hydrocodone Bitart/Acetaminophen 1 tab 10/10/19 08:05 10/13/19 01:40 [place] 10/325 PO 1 tab Q4H PRN Administration Moderate to Severe Pain (6-10) Cefdinir 600 mg 10/11/19 09:00 10/13/19 10:04 Omnicef PO 600 mg DAILY MARISOL Administration Famotidine 20 mg 10/12/19 21:00 10/13/19 21:35 Pepcid PO 20 mg BID MARISOL Administration Fentanyl 50 mcg 10/10/19 09:00 10/13/19 09:59 Duragesic TD 50 mcg Q3D MARISOL Administration Loperamide HCl 2 mg 10/07/19 23:00 10/08/19 15:33 Imodium PO 2 mg PRN PRN Administration Diarrhea/Loose Stools Multivitamins/Minerals 1 tab 10/08/19 09:00 10/13/19 15:25 Ocuvite With Lutein PO Not Given DAILY MARISOL Ondansetron HCl 4 mg 10/07/19 23:00 10/08/19 03:49 Zofran Odt PO 4 mg Q6H PRN Administration Nausea/Vomiting Polyethylene Glycol 17 gm 10/08/19 09:00 10/13/19 10:02 Miralax PO 17 gm DAILY MARISOL Administration Sodium Chloride 10 ml 10/08/19 09:00 10/13/19 21:35 Flush - Normal Saline IVF 10 ml Q12HR MARISOL Administration Tramadol HCl 50 mg 10/09/19 22:28 10/13/19 18:00 Ultram PO 50 mg Q4H PRN Administration Moderate Pain (4-5) - Exam Heart: negative: RRR, no murmur, no gallops, no rubs, normal peripheral pulses, irregular, diminshed peripheral pulses, murmur present, II/IV, III/IV Respiratory: negative: CTAB, no wheezes, no rales, no ronchi, normal chest expansion, no tachypnea, normal percussion, rales, rhonchi, tachypneic, wheezes Gastrointestinal: negative: soft, non-tender, non-distended, normal bowel sounds , no palpable masses, no hepatomegaly, no splenomegaly, no bruit, no guarding, no rigidity, tender to palpation, distended, diminished bowl sounds, voluntary guarding Hosp A/P (1) DVT (deep venous thrombosis) Code(s): I82.409 - ACUTE EMBOLISM AND THOMBOS UNSP DEEP VN UNSP LOWER EXTREMITY Status: Acute (2) Encephalopathy acute Code(s): G93.40 - ENCEPHALOPATHY, UNSPECIFIED Status: Acute (3) Hydronephrosis Code(s): N13.30 - UNSPECIFIED HYDRONEPHROSIS Status: Acute Qualifiers: Hydronephrosis type: unspecified Qualified Code(s): N13.30 - Unspecified hydronephrosis (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 pt was doing well before radiation however after radiation nurse stated that pt appeared oriented x1 only. will watch him one more night. will check his hh in am 10/13 spoke with pt's family on tuesday evening and they decided that he will need snf. Pt's is very weak and cannot take care of him in assisted living. All pt's children live out of town. I did mention that he will not get radiation therapy while he is in snf. They understand. I watched him get up and go to the bathroom and he will not be able to live in a assisted living especially since his had a fall and now is using a walker. s/p one unit of prbc will monitor hh.
[2019-10-14 08:55] LABS: Hemoglobin 8.1 g/dL (14.0-18.0)
[2019-10-14] MEDS: Vit A,C & E/Lutein/Minerals Tablet PO SCH (09:19)
[2019-10-14] MEDS: Cefdinir 300 MG CAP PO SCH (09:21)
[2019-10-14] MEDS: Famotidine 20 MG TAB PO SCH ×2 (09:21→20:13)
[2019-10-14] MEDS: Polyethylene Glycol 3350 17 GM Packet PO SCH (09:22)
[2019-10-14] MEDS: traMADol HCl 50 MG TAB PO PRN ×3 (10:18→23:20)
--- NOTE | 2019-10-14 21:06 | PDOC.HOSPP ---
- Subjective Encounter Date: 10/14/19 Encounter Time: 21:04 Subjective: Patient found sleeping comfortably. Difficulty obtaining history or much information from him as he is extremely hard of hearing. Per maintenance technician 2nd shift RN, day team reported redness at heels. Good control of pain with Tramadol. - Objective Vital Signs & Weight: Vital Signs (12 hours) Temp Pulse Resp BP Pulse Ox 10/14/19 20:00 99.8 F H 71 18 130/60 92 L Weight Weight 202 lb 6.4 oz I&O: 10/13/19 10/14/19 10/15/19 06:59 06:59 06:59 Intake Total 350 980 Balance 350 980 Result Diagrams: 10/14/19 08:40 10/12/19 10:06 Hospitalist ROS - Review of Systems ROS unobtainable: due to mental status (Due to hard of hearing) - Medication Medications: Active Medications Generic Name Dose Route Start Last Admin Trade Name Freq PRN Reason Stop Dose Admin Acetaminophen 1,000 mg 10/07/19 23:00 10/08/19 17:26 Tylenol PO 1,000 mg Q6H PRN Administration Mild Pain (1-3) Hydrocodone Bitart/Acetaminophen 1 tab 10/10/19 08:05 10/13/19 01:40 [place] 10/325 PO 1 tab Q4H PRN Administration Moderate to Severe Pain (6-10) Cefdinir 600 mg 10/11/19 09:00 10/14/19 09:21 Omnicef PO 600 mg DAILY MARISOL Administration Famotidine 20 mg 10/12/19 21:00 10/14/19 20:13 Pepcid PO 20 mg BID MARISOL Administration Fentanyl 50 mcg 10/10/19 09:00 10/13/19 09:59 Duragesic TD 50 mcg Q3D MARISOL Administration Loperamide HCl 2 mg 10/07/19 23:00 10/08/19 15:33 Imodium PO 2 mg PRN PRN Administration Diarrhea/Loose Stools Multivitamins/Minerals 1 tab 10/08/19 09:00 10/14/19 09:19 Ocuvite With Lutein PO 1 tab DAILY MARISOL Administration Ondansetron HCl 4 mg 10/07/19 23:00 10/08/19 03:49 Zofran Odt PO 4 mg Q6H PRN Administration Nausea/Vomiting Polyethylene Glycol 17 gm 10/08/19 09:00 10/14/19 09:22 Miralax PO 17 gm DAILY MARISOL Administration Sodium Chloride 10 ml 10/08/19 09:00 10/14/19 20:13 Flush - Normal Saline IVF 10 ml Q12HR MARISOL Administration Tramadol HCl 50 mg 10/09/19 22:28 10/14/19 17:24 Ultram PO 50 mg Q4H PRN Administration Moderate Pain (4-5) - Exam General Appearance: NAD, awake alert Eye: PERRL, anicteric sclera ENT: normocephalic atraumatic, no oropharyngeal lesions Neck: supple, symmetric Heart: RRR Respiratory: CTAB Gastrointestinal: soft, non-distended, no guarding, no rigidity Extremities: 1+ LE edema (Left leg with trace edema. No wounds. 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 No eliquis due to hematuria. Reportedly had foot pain. Unclear which foot. No significant abnormality on exam except for mild trace edema involving left lower leg. Will obtain venous doppler. Continue current plan otherwise. Patient awaiting placement as per Dr. Marquez. Patient resting comfortably.
--- NOTE | 2019-10-14 22:32 | ULT ---
US Venous Doppler Bilat History: Lower extremity edema Comparison: Lower extremity ultrasound July 2019 Findings: Real-time grayscale, color, and spectral analysis of the bilateral lower extremity venous s ystem was performed. The common femoral, femoral, proximal portions greater saphenous and deep femoral veins as well as the popliteal posterior tibial veins were interrogated. Normal flow, augmentation, and compression. Impression: No deep venous thrombosis.
[2019-10-14] MEDS: Acetaminophen 500 MG TAB PO PRN (23:19)
[2019-10-15] MEDS ORDERED: Furosemide 40 MG/4 ML VIAL SLOW IVP SCH (07:45)
[2019-10-15] MEDS: HYDROcodone/Acetaminophen 10/325 mg Tablet PO PRN (08:32)
[2019-10-15] MEDS: Famotidine 20 MG TAB PO SCH ×2 (08:33→20:47)
[2019-10-15] MEDS: Cefdinir 300 MG CAP PO SCH (08:33)
[2019-10-15] MEDS: Polyethylene Glycol 3350 17 GM Packet PO SCH (08:34)
[2019-10-15] MEDS: Vit A,C & E/Lutein/Minerals Tablet PO SCH (11:03)
[2019-10-15] MEDS ORDERED: Bisacodyl 5 MG TAB PO SCH (12:15)
[2019-10-15] MEDS: Acetaminophen 500 MG TAB PO PRN (15:57)
[2019-10-15] MEDS ORDERED: ALPRAZolam 0.5 MG TAB PO SCH (18:30)
--- NOTE | 2019-10-15 19:27 | PDOC.HOSPP ---
- Subjective Encounter Date: 10/15/19 Encounter Time: 12:45 Subjective: pt up in bed hard of hearing, denies any complains - Objective Vital Signs & Weight: Vital Signs (12 hours) Temp Pulse Resp BP Pulse Ox 10/15/19 09:41 98.3 F 20 94 L 10/15/19 08:00 61 142/63 H 94 L Weight Weight 202 lb 6.4 oz I&O: 10/14/19 10/15/19 10/16/19 06:59 06:59 06:59 Intake Total 980 Balance 980 Result Diagrams: 10/14/19 08:40 10/12/19 10:06 Hospitalist ROS - Review of Systems Cardiovascular: denies: chest pain, palpitations, orthopnea, paroxysmal noc. dyspnea, edema, light headedness, other Gastrointestinal: denies: nausea, vomiting, abdominal pain, diarrhea, constipation, melena, hematochezia, other - Medication Medications: Active Medications Generic Name Dose Route Start Last Admin Trade Name Freq PRN Reason Stop Dose Admin Acetaminophen 1,000 mg 10/07/19 23:00 10/15/19 15:57 Tylenol PO 1,000 mg Q6H PRN Administration Mild Pain (1-3) Hydrocodone Bitart/Acetaminophen 1 tab 10/10/19 08:05 10/15/19 08:32 [place] 10/325 PO 1 tab Q4H PRN Administration Moderate to Severe Pain (6-10) Alprazolam 0.5 mg 10/15/19 18:30 10/15/19 18:31 Xanax PO 10/15/19 20:30 0.5 mg NOW MARISOL Administration Cefdinir 600 mg 10/11/19 09:00 10/15/19 08:33 Omnicef PO 600 mg DAILY MARISOL Administration Famotidine 20 mg 10/12/19 21:00 10/15/19 08:33 Pepcid PO 20 mg BID MARISOL Administration Fentanyl 50 mcg 10/10/19 09:00 10/13/19 09:59 Duragesic TD 50 mcg Q3D MARISOL Administration Loperamide HCl 2 mg 10/07/19 23:00 10/08/19 15:33 Imodium PO 2 mg PRN PRN Administration Diarrhea/Loose Stools Multivitamins/Minerals 1 tab 10/08/19 09:00 10/15/19 11:03 Ocuvite With Lutein PO 1 tab DAILY MARISOL Administration Ondansetron HCl 4 mg 10/07/19 23:00 10/08/19 03:49 Zofran Odt PO 4 mg Q6H PRN Administration Nausea/Vomiting Polyethylene Glycol 17 gm 10/08/19 09:00 10/15/19 08:34 Miralax PO 17 gm DAILY MARISOL Administration Sodium Chloride 10 ml 10/08/19 09:00 10/15/19 08:35 Flush - Normal Saline IVF 10 ml Q12HR MARISOL Administration Tramadol HCl 50 mg 10/09/19 22:28 10/14/19 23:20 Ultram PO 50 mg Q4H PRN Administration Moderate Pain (4-5) - Exam Heart: negative: RRR, no murmur, no gallops, no rubs, normal peripheral pulses, irregular, diminshed peripheral pulses, murmur present, II/IV, III/IV Respiratory: negative: CTAB, no wheezes, no rales, no ronchi, normal chest expansion, no tachypnea, normal percussion, rales, rhonchi, tachypneic, wheezes Gastrointestinal: negative: soft, non-tender, non-distended, normal bowel sounds , no palpable masses, no hepatomegaly, no splenomegaly, no bruit, no guarding, no rigidity, tender to palpation, distended, diminished bowl sounds, voluntary guarding Hosp A/P (1) DVT (deep venous thrombosis) Code(s): I82.409 - ACUTE EMBOLISM AND THOMBOS UNSP DEEP VN UNSP LOWER EXTREMITY Status: Acute (2) Encephalopathy acute Code(s): G93.40 - ENCEPHALOPATHY, UNSPECIFIED Status: Acute (3) Hydronephrosis Code(s): N13.30 - UNSPECIFIED HYDRONEPHROSIS Status: Acute Qualifiers: Hydronephrosis type: unspecified Qualified Code(s): N13.30 - Unspecified hydronephrosis (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 pt was doing well before radiation however after radiation nurse stated that pt appeared oriented x1 only. will watch him one more night. will check his hh in am 10/13 spoke with pt's family on tuesday evening and they decided that he will need snf. Pt's is very weak and cannot take care of him in assisted living. All pt's children live out of town. I did mention that he will not get radiation therapy while he is in snf. They understand. I watched him get up and go to the bathroom and he will not be able to live in a assisted living especially since his had a fall and now is using a walker. s/p one unit of prbc will monitor hh. 10/15 pt was about to be discharged and got confused again. I had a long conversation with pt's daughter about his underlying medical problems and further testing. I also mentioned that we may not find anything and that he may just have some delirum. pt's daughter agrees and does not want her father to have any more testing eg ct or mri brain or eeg. He has been afebrile. His hh is stable. I also spoke to his and daughter who does not want any heroic measures to resuscitate him. I will place a DNAR order.
[2019-10-16] MEDS: traMADol HCl 50 MG TAB PO PRN ×2 (08:36→20:36)
[2019-10-16] MEDS: Famotidine 20 MG TAB PO SCH ×2 (08:38→20:40)
[2019-10-16] MEDS: Polyethylene Glycol 3350 17 GM Packet PO SCH (08:39)
[2019-10-16] MEDS: fentaNYL 50 mcg/hour Patch TD SCH (09:44)
[2019-10-16] MEDS: Vit A,C & E/Lutein/Minerals Tablet PO SCH (09:51)
[2019-10-16 11:31] LABS: Anion Gap 11 mmol/L (10-20); BUN (Urea Nitrogen) 13 mg/dL (8.4-25.7); Calc. Creatinine Clearance 63 mL/min (70-130); Calcium 8.4 mg/dL (7.8-10.44); Carbon Dioxide 27 mmol/L (23-31); Chloride 96 mmol/L (98-107); Estimated GFR-MDRD 67; Glucose 136 mg/dL (83-110); Mean Corpuscular HGB CONC 33.1 g/dL (32.0-36.0); Mean Corpuscular Hemoglobin 31.1 pg (27.0-31.0); Mean Corpuscular Volume 93.9 fL (78.0-98.0); Mean Platelet Volume 8.8 fL (7.4-10.4); Platelet Count 53 thou/uL (130-400); Potassium 3.7 mmol/L (3.5-5.1); RBC Distribution Width 14.9 % (11.5-14.5); Red Blood Cell (RBC) Count 2.25 mill/uL (4.70-6.10); Sodium 130 mmol/L (136-145); White Blood Cell (WBC) Count 3.1 thou/uL (4.8-10.8)
[2019-10-16 11:48] LABS: Anisocytosis SLIGHT = 6-15 cells (100X) (0-5/hpf); Band 5 % (5-11); Eosinophils 2 % (0-10); Lymphocytes 8 % (21-51); MDiff Complete? YES; Monocytes 17 % (0-10); Neutrophil 67 % (42-75); Ovalocytes SLIGHT = 2-5 cells (100X) (0-1/hpf); Platelet Morphology Comment Appears Decreased; Polychromasia SLIGHT = 2-3 cells (100X) (0-2/hpf)
[2019-10-17] MEDS: Famotidine 20 MG TAB PO SCH (09:35)
[2019-10-17] MEDS: Vit A,C & E/Lutein/Minerals Tablet PO SCH (09:35)
[2019-10-17 10:47] VITALS: BP 132/90; TEMP 98.2
[2019-10-17] MEDS: traMADol HCl 50 MG TAB PO PRN ×2 (12:14→18:27)
[2019-10-17 13:00] LABS: Eosinophils 2 % (0-10); Hemoglobin 8.3 g/dL (14.0-18.0); Lymphocytes 2 % (21-51); MDiff Complete? YES; Mean Corpuscular HGB CONC 33.1 g/dL (32.0-36.0); Mean Corpuscular Volume 93.7 fL (78.0-98.0); Mean Platelet Volume 9.1 fL (7.4-10.4); Monocytes 17 % (0-10); Neutrophil 79 % (42-75); Platelet Count 58 thou/uL (130-400); Platelet Morphology Comment Appears Decreased; RBC Distribution Width 15.2 % (11.5-14.5); Red Blood Cell (RBC) Count 2.69 mill/uL (4.70-6.10)
--- NOTE | 2019-10-17 16:19 | PQF ---
YOON RAMESH CHET BA [id number] CLINICAL DOCUMENTATION IMPROVEMENT CLARIFICATION FORM: ICD-10 Updated PLEASE DO AN ADDENDUM TO THE PROGRESS NOTE WITH ANY DOCUMENTATION UPDATES OR ADDITIONS AND CARRY THROUGH TO DC SUMMARY. THANK YOU. DATE: 10/17/2019 ATTN:DR. Felipe SALAZAR Please exercise your independent, professional judgment in responding to the clarification form. Clinical indicators are provided on the bottom of this form for your review. Please check appropriate box(s) to clarify if the following diagnosis has been ruled in or ruled out: UTI [ ] Ruled in diagnosis [ ] Continue to treat [ ] Resolved [ x ] Ruled out diagnosis [ ] Other diagnosis [ ] Unable to determine In addition, please specify: Present on Admission (POA): [ ] Yes [ ] No [ x] Unable to determine For continuity of documentation, please document condition throughout progress notes and discharge summary. Thank You. CLINICAL INDICATORS - SIGNS / SYMPTOMS / LABS / RESULTS AND LOCATION IN 10/07 ED RECORD: PHYSICIAN DX: UTI, AMS, HYPONATREMIA 10/07 H&P ( ERENDIRA) A/P: 2). URINARY TRACT INFECTION. SUSPECTED GIVEN THE PATIENT' S RADIATION AND IMMUNOTHERAPY. 10/07 URINE CULTURE: NO GROWTH AT 36 HOURS 10/09 CONSULT/ONCOLOGY ( ONIEL) ASSESSMENT: 3). POSSIBLE URINARY TRACT INFECTION NO FURTHER MENTION OF UTI TO DATE RISK: HX URETER CANCER, BPH, CURRENT CHEMOTHERAPY AND IMMUNOTHERAPY ( H&P / ERENDIRA ) DX BILATERAL HYDRONEPHROSIS (ONIEL/CONSULT) 10/09 TREATMENTS: URINE CULTURE 10/07 ROCEPHIN IV (10/08-10/10) THANK YOU! MIL (This form is maintained as a part of the permanent medical record) 2014 [employer] All Rights Reserved [email or web address] [phone] [facility]IMINALLY INSANEValerie
--- NOTE | 2019-10-17 19:19 | DIS ---
DATE OF ADMISSION: 10/07/2019 DATE OF DISCHARGE: 10/17/2019 DISCHARGE DIAGNOSES: 1. Acute metabolic encephalopathy. 2. History of deep vein thrombosis, not on Eliquis due to hematuria. Has IVC filter. 3. Hydronephrosis. 4. Transitional cell bladder cancer. 5. Gross hematuria. HOSPITAL COURSE: The patient is an 89-year-old male who initially presented to the hospital with fever, weakness, and some confusion. The patient at this time was thought to have some mild dehydration and also his confusion was attributed to possible some pain medications. His medications were changed. He did have a CT brain, which was negative. He was also seen by Oncology and also by Urology. Urology initially indicated possible nephrostomy tube, however, then decided against it. His creatinine has been stable. He did have radiation therapy, which is palliative for pain control. The patient and the family are aware of this. The patient normally lives in an assisted living, however due to his severe deconditioning and his not feeling well, the decision was made to stop the radiation therapy for now and place him in a assisted facility to improve his strength. While in the hospital, the patient had a couple of bouts of confusion, where he would not be oriented to self nor others. This was attributed to possible may be a little bit of delirium versus medication. He did have serial H and H's and he did require blood transfusions x2. He also had a lower extremity Doppler, which was venogram and which was negative. The patient again will be discharged to a assisted and will follow up with Radiation Oncology. MEDICATIONS: Will be: 1. MiraLAX 17 g daily. 2. Fentanyl 50 mcg every 3 days. 3. Colace 100 mg b.i.d. 4. Magnesium citrate 300 mg as needed. 5. [place] 1 tab p.o. every 6 hours p.r.n. The patient was treated for possible urinary tract infection; however, his culture that was done did not indicate any acute abnormalities. His urine culture had no growth. His fecal occult of course was positive. His influenza was negative and so were his blood cultures. He was taken off the IV antibiotics. PHYSICAL EXAMINATION: VITAL SIGNS: Temperature 98.2, pulse 74, respirations 20, 96% on room air, blood pressure 132/90. GENERAL: He is awake, alert, and oriented x3. Does not appear in any distress. CV: S1 and S2 present. No murmurs, rubs, or gallops. ABDOMEN: Soft and nontender. Bowel sounds are present x2. Job ID: [id number]
== END 2019-10-17 19:05 | disposition home or self-care (01) | DRG 640 ==
LOC: ERS 17:10 → ONC 22:35
PROVIDERS: ADMIT Family Medicine; ATTEND Family Medicine
PROC: 30233N1 Transfusion of Nonautologous Red Blood Cells into Peripheral Vein, Percutaneous Approach (ICD-10-PCS; principal; 2019-10-12)
DX: E87.1 Hypo-osmolality and hyponatremia (principal); G93.41 Metabolic encephalopathy; C66.9 Malignant neoplasm of unspecified ureter; N13.30 Unspecified hydronephrosis; Z66 Do not resuscitate; Z51.5 Encounter for palliative care; N40.0 Benign prostatic hyperplasia without lower urinary tract symptoms; E86.0 Dehydration; Z96.641 Presence of right artificial hip joint; K59.00 Constipation, unspecified; M19.90 Unspecified osteoarthritis, unspecified site; D64.9 Anemia, unspecified; C67.9 Malignant neoplasm of bladder, unspecified; Z87.891 Personal history of nicotine dependence; Z88.1 Allergy status to other antibiotic agents; Z79.899 Other long term (current) drug therapy; Z86.718 Personal history of other venous thrombosis and embolism; Z79.01 Long term (current) use of anticoagulants; R31.0 Gross hematuria
CPT/HCPCS: 36415; 36430; 70450; 71045; 74177; 77386; 77417; 80048; 80053; 81003; 81015; 82274; 82550; 82553; 82607; 83540; 83550; 83690; 83735; 83880; 84443; 84484; 85014; 85018; 85025; 86850; 86900; 86901; 87040; 87086; 87804; 93970; 96365; 96375; J0696; J1642; J1940; J3010; J3490; P9016; Q0162; Q9967